=== PATIENT | female | born 1980 | race Caucasian/White ===

== ENCOUNTER 2020-02-16 15:25 | Emergency (ER) | payer OTHER, SELFPAY ==
[2020-02-16 15:27] VITALS: BP 158/100; PULSE 113; RESP 19; TEMP 36.9; O2SAT 95; BMI 45.4
--- NOTE | 2020-02-16 15:40 | ED.DCSUM_ITS ---
- ER Visit Summary Date of Service: 02/16/20 Chief Complaint: [Seizure] History of Present Illness: The patient is a 40 F [presents to the emergency department via EMS after sustaining a seizure this afternoon. [place] and apparently was with her kids when she had a whole body tonic-clonic seizure lasting about 1-1/2 to 2 minutes. Patient somewhat postictal afterwards. Patient does have history of seizure disorder but states that it is been many years since her last seizure. Patient just saw her neurologist 2 weeks ago. Patient is on Vimpat and has been compliant with her medications. There have not been any adjustments in her medications. She denies recent illness. She denies sleep deprivation. Currently just feels fatigued and otherwise has no complaints. Patient did lose control of her bladder during her seizure.] Physical Examination: [HEENT-PERRLA, EOMI. Cranial nerves II through XII grossly intact. TMs clear. Mucous membranes moist. No adenopathy. Patient does have bite wounds to her tongue. Cardiovascular-regular rate and rhythm without murmur or ectopy Lungs-clear to auscultation, chest wall stable without crepitus or subcu emphysema Abdomen-normoactive bowel sounds, soft, nontender, no rebound or rigidity, no peritoneal signs. Neuro drim-hsfjee-fw-nose and heel crespo testing within normal limits, negative Romberg, negative pronator, fundi benign Extremities-intact ?4, normal range of motion, normal pulses, atraumatic] Test Results: [CBC with differential obtained showed a white count of 11.7, hemoglobin 12.6, hematocrit 40, placed 339. Chemistries showed a sodium 139, potassium 3.3, chloride 108, CO2 20, glucose 120, BUN 16 creatinine 1.3. Tees were normal.] Emergency Department Course and Treatment: [IV line established and patient was observed in the department. She had no further seizure activity.] Treatment Plan: [Patient advised to follow-up with her neurologist within next 3 to 5 days.] Disposition: [Discharged home in stable condition] Impression: [Seizure-recurrent] This note was generated with [employer] software. It may contain incorrect words, spelling, and punctuation that were not noted in review of the chart prior to signing
[2020-02-16 15:53] LABS: Absolute Lymphocyte Count 3.46 X10^3/uL (0.83-4.51); Absolute Neutrophil Count 6.8 X10^3/uL (2.0-7.7); Basophil# 0.04 X10^3/uL; Basophil% 0.3 % (0-1); Eosinophil# 0.46 X10^3/uL; Eosinophils% 3.9 % (0-5); Hematocrit 39.7 % (37-47); Hemoglobin 12.6 g/dL (12.0-15.0); Lymphocyte # 3.46 X10^3/ul (4.0); Lymphocyte % 29.5 % (19-41); Mean Corp Hgb Conc 31.7 g/dL (32-36); Mean Corpuscular Hgb 26.7 pg (27.0-32.0); Mean Corpuscular Volume 84.1 fL (81-99); Mean Platelet Vol. 9.4 fl (6.2-12.0); Monocyte# 0.88 X10^3/uL; Monocyte% 7.5 % (0-10); NRBC Flagged by Analyzer 0 % (0-5); Neutrophil # 6.79 X10^3/uL (2.7-7.7); Platelet Count 339 K/mm3 (150-450); RBC Distribution Width SD 45.6 fl (35.1-43.9); Red Blood Count 4.72 M/mm3 (4.2-5.4); White Blood Count 11.7 K/mm3 (4.4-11.0)
[2020-02-16 16:05] LABS: AST(SGOT) 21 U/L (15-37); Alanine Aminotransfer ALT/SGPT 37 U/L (13-56); Albumin, Serum 3.7 g/dL (3.2-5.0); Alkaline Phosphatase 99 U/L (45-117); Anion Gap 11 (5-15); BUN 16 mg/dL (7-18); BUN/Creat Ratio 12.2 RATIO (10-20); Calcium,Total 8.6 mg/dL (8.5-10.1); Chloride 108 mmol/L (98-107); Creatinine, Serum 1.31 mg/dL (0.55-1.02); EST Glomerular Filtration Rate 47 mL/min (>60); Est Glom Filt Rate - Afr Amer 57 mL/min (>60); Estimated Creatinine Clearance 46.28 ml/min; Globulin 3.7 g/dL (2.2-4.2); Glucose 120 mg/dL (74-106); Potassium 3.3 mmol/L (3.5-5.1); Protein, Total 7.4 g/dL (6.4-8.2); Sodium Level 139 mmol/L (136-145)
--- NOTE | 2020-02-16 16:23 | ED.DEP ---
ED Disposition - Plan for ED Patient: Instructions: ED Seizure Recurrent Adult Referrals: Cari Zaldivar PA [Primary Care Provider] - Additional Instructions: see your neurologist
[2020-02-16 16:41] VITALS: BP 136/78; PULSE 110; RESP 16; O2SAT 98
== END 2020-02-16 16:42 | disposition home or self-care (01) ==
LOC: ED 15:56
PROVIDERS: Emergency Provider Emergency Medicine; PCP Physician Assistant
DX: G40.909 Epilepsy, unspecified, not intractable, without status epilepticus (principal); Z79.899 Other long term (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 therapy
CPT/HCPCS: 80053; 85025; 99285; A4216

== ENCOUNTER 2024-11-10 11:19 | Emergency (ER) | payer OTHER, SELFPAY ==
[2024-11-10 11:20] VITALS: BP 199/128; PULSE 95; RESP 16; TEMP 35.8; O2SAT 99
[2024-11-10 11:22] VITALS: BMI 44.0
--- OUTSIDE RECORDS SUMMARY | 2024-11-10 12:02 | XMS RPT_ITS | CCD ---
Author Organization [facility] Care Team Providers Care Robotics Specialist Name Role Phone Shelley Bernabe Unavailable Unavailable PROVIDER, UNKNOWN Unavailable Unavailable No, PCP Unavailable Unavailable Kamla Melchor Unavailable Unavailable Distrio, Shelley Unavailable Unavailable Checo Bernabea Unavailable Unavailable Cari Zaldivar PA-C Primary Care Provider [phone] Cari Zaldivar PA-C Primary Care Provider [phone] Referred, Self Attending Unavailable Cari Zaldivar Primary Care Unavailable Cari Zaldivar PA-C Primary Care Provider [phone] Unavailable Primary Care Provider Unavailabl e Unavailable Primary Care Provider Unavailabl e OTONIEL OCAMPO Attending Unavailable NEDA JEROME Referring Unavail able NEDA JEROME Attending Unavail able NEDA JEROME Referring Unavail able Allergies Allergy Classification Reported Allergen(s) Allergy Type Date of Onset Reaction(s) Facility (20 sources) lamoTRIgine; Translations: [LAMOTRIGINE] Drug Allergy 04-25-2007 [facility] Work Phone: (1 source) lamoTRIgine Drug Allergy 02-16-2020 [facility] Repository Medications Current Medications Medication Drug Class(es) Dates Sig (Normalized) Sig (Original) lacosamide 200 mg oral tablet (20 sources) Anti-epileptic Agent Start: 12-16-2022 End: 03-05-2025 take 1 tablet by mouth twice daily lacosamide (VIMPAT) 200 mg Indications: Partial idiopathic epilepsy with seizures of localized onset, intractable, without status epilepticus (HCC) Take 1 tablet by mouth two times a day for 180 days. 180 tablet 1 09/06/2024 03/05/2025 Active Start: 09-27-2021 End: 03-26-2022 take 1 tablet by mouth twice daily lacosamide (VIMPAT) 50 mg tab Indications: Partial idiopathic epilepsy with seizures of localized onset, intractable, without status epilepticus (HCC) Take 1 tablet by mouth twice daily for 180 days. 180 tablet 1 09/27/2021 03/26/2022 Active Start: 09-10-2021 End: 09-23-2021 take 1 tablet by mouth twice daily lacosamide (VIMPAT) 50 mg tab Indications: Partial idiopathic epilepsy with seizures of localized onset, intractable, without status epilepticus (HCC) Take 1 tablet by mouth twice daily for 180 days. 180 tablet 1 09/23/2021 09/23/2021 Discontinued Start: 07-01-2021 End: 12-28-2021 take 0.5 tablet by mouth twice daily lacosamide (VIMPAT) 100 mg tab Indications: Partial idiopathic epilepsy with seizures of localized onset, intractable, without status epilepticus (HCC) Take 0.5 tablets by mouth twice daily for 180 days. Take in addition to 200mg tabs for total dose of 250mg twice daily. 30 tablet 5 07/01/2021 09/23/2021 Discontinued Start: 02-16-2020 End: 03-27-2022 take 1 tablet by mouth twice daily lacosamide (VIMPAT) 200 mg Indications: Partial idiopathic epilepsy with seizures of localized onset, intractable, without status epilepticus (HCC) Take 1 tablet by mouth twice daily for 150 days. generic trial 60 tablet 5 09/27/2021 09/28/2021 Discontinued Comment on above: Take 1 tablet by eleonora th twice daily for 150 days. Take 0.5 tablets by mouth twice daily for 180 days. Take in addition to 200mg tabs for total dose of 250mg twice daily. Take 1 tablet by eleonora th twice daily for 150 days. generic trial Take 1 tablet by eleonora th twice daily for 180 days. generic trial Take 1 tablet by eleonora th twice daily for 180 days. Take 1 tablet by eleonora th two times a day for 180 days. Completed/Discontinued Medications Medication Drug Class(es) Dates Sig (Normalized) Sig (Original) clonazePAM 0.5 mg disintegrating oral tablet (7 sources) Benzodiazepine Start: 09-06-2021 End: 09-09-2021 take 1 tablet by mouth twice daily clonazePAM orally disintegrating (KLONOPIN WAFER) 0.5 mg disintegrating tablet Indications: Recurrent seizures (HCC) Take 1 tablet by mouth twice daily for 3 days. 6 tablet 0 09/06/2021 Active Comment on above: Take 1 tablet by eleonora twice daily for 3 days. OXcarbazepine 300 mg oral tablet (1 source) Anti-epileptic Agent Start: 12-16-2022 End: 12-16-2022 take 1.5 tablets by mouth twice daily OXcarbazepine (TRILEPTAL) 300 mg tablet Take 1.5 tablets by mouth twice daily. 90 tablet 5 12/16/2022 12/16/2022 Discontinued Comment on above: Take 1.5 tablets by mouth twice daily. zonisamide 100 mg oral capsule (20 sources) Anti-epileptic Agent Start: 08-18-2022 End: 04-30-2025 take 2 capsules by mouth once daily in the morning, then take 3 capsules by mouth once daily at bedtime zonisamide (ZONEGRAN) 100 mg capsule Indications: Partial idiopathic epilepsy with seizures of localized onset, intractable, without status epilepticus (HCC) Take 2 capsules by mouth every morning AND 3 capsules daily at bedtime. 450 capsule 1 05/20/2024 11/01/2024 Discontinued Start: 10-06-2021 End: 10-07-2021 zonisamide (ZONEGRAN) 100 mg capsule Indications: Partial idiopathic epilepsy with seizures of localized onset, intractable, without status epilepticus (HCC) take 2 pills in the morning and 3 pills in the evening. 450 capsule 3 10/07/2021 Active Start: 09-27-2021 End: 01-04-2022 take 1 capsule by mouth twice daily zonisamide (ZONEGRAN) 50 mg capsule Indications: Partial idiopathic epilepsy with seizures of localized onset, intractable, without status epilepticus (HCC) Take 1 capsule by mouth twice daily. Take with 100 mg capsule to make 150 mg twice daily 180 capsule 0 09/27/2021 01/04/2022 Discontinued Start: 09-27-2021 End: 12-26-2021 take 1 capsule by mouth twice daily zonisamide (ZONEGRAN) 100 mg capsule Indications: Partial idiopathic epilepsy with seizures of localized onset, intractable, without status epilepticus (HCC) Take 1 capsule by mouth twice daily. Take with 50 mg capsule to make 150 mg twice daily 180 capsule 0 09/27/2021 10/06/2021 Discontinued Start: 09-23-2021 End: 03-22-2022 take 3 capsules by mouth once daily zonisamide (ZONEGRAN) 100 mg capsule Take 3 capsules by mouth once daily. 270 capsule 1 09/23/2021 09/27/2021 Discontinued Start: 08-03-2021 End: 09-23-2021 take 2 capsules by mouth once daily zonisamide (ZONEGRAN) 100 mg capsule Take 2 capsules by mouth once daily. 180 capsule 3 08/03/2021 09/23/2021 Discontinued Comment on above: Take 2 capsules by m outh once daily. Take 3 capsules by m outh once daily. Take 1 capsule by mo uth twice daily. Take with 50 mg capsule to make 150 mg twice daily Take 1 capsule by mo uth twice daily. Take with 100 mg capsule to make 150 mg twice daily Take 1 capsule by mo uth twice daily. take 2 pills in the morning and 3 pills in morning. take 2 pills in the morning and 3 pills in the evening. Take 2 capsules by m outh every morning AND 3 capsules daily at bedtime. Problems Active Problems Problem Classification Problem Date Documented Date Episodic/Chronic Deficiency and other anemia (20 sources) Iron deficiency anemia due to blood loss; Translations: [Iron deficiency anemia secondary to blood loss (chronic)] Onset: 05-07-2019 05-07-2019 Chronic Epilepsy; convulsions (20 sources) Localization-related idiopathic epilepsy; Translations: [Localization-related (focal) (partial) idiopathic epilepsy and epileptic syndromes with seizures of localized onset, intractable, without status epilepticus] Onset: 08-30-2018 Chronic Nonmalignant breast conditions (2 sources) Breast lump; Translations: [Unspecified lump in the left breast, upper outer quadrant] 02-24-2023 Episodic Other aftercare (1 source) Long-term current use of anticonvulsant; Translations: [Encounter for therapeutic drug level monitoring] 11-01-2024 Episodic Other aftercare (1 source) Encounter for therapeutic drug level monitoring; Translations: [Encounter for monitoring anticonvulsant therapy] Onset: 11-01-2024 Episodic Other aftercare (1 source) 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 medical instrument cable fabricator (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 therapy; Translations: [Encounter for monitoring anticonvulsant therapy] Onset: 11-01-2024 Episodic Other female genital disorders (20 sources) Abnormal uterine bleeding; Translations: [Abnormal uterine and vaginal bleeding, unspecified] Onset: 11-04-2019 11-04-2019 Chronic Other nutritional; endocrine; and metabolic disorders (20 sources) Body mass index 40+ - severely obese; Translations: [Morbid (severe) obesity due to excess calories] Onset: 11-07-2019 11-07-2019 Chronic Residual codes; unclassified (2 sources) At high risk for breast cancer; Translations: [Other specified personal risk factors, not elsewhere classified] 10-07-2024 Episodic Unclassified (13 sources) Encounter for screening mammogram for malignant neoplasm of breast; Translations: [Encounter for screening for lipoid disorders] Onset: 05-01-2017 Episodic Past or Other Problems Problem Classification Problem Date Documented Da te Episodic/Chronic Biliary tract disease (11 sources) Calculus of gallbladder with cholecystitis; Translations: [Calculus of gallbladder with chronic cholecystitis without obstruction] Onset: 10-18-2005 Resolved: 11-04-2019 11-04-2019 Episodic Medical examination/evaluation (2 sources) Encounter for general adult medical examination without abnormal findings; Translations: [Encntr for general adult medical exam w/o abnormal findings] Onset: 05-01-2017 Episodic Other circulatory disease (20 sources) Elevated blood-pressure reading without diagnosis of hypertension; Translations: [Elevated blood-pressure reading, without diagnosis of hypertension] Onset: 11-05-2018 11-05-2018 Episodic Other gastrointestinal disorders (11 sources) Functional diarrhea; Translations: [Functional diarrhea] Onset: 07-25-2008 Resolved: 01-28-2021 01-28-2021 Episodic Unclassified (3 sources) Patient encounter status 08-06-2024 Results Test Name Value Interpretation Reference Range Facility [facility] 09-06-[address] [facility] Telephone (NEUSES) ELMO MONTOYA ([id number]) 1980 [facility] Date Time Provider Department 09/06/24 OTONIEL OCAMPO During your visit today, we recorded the following information about you: Ira Pathak 09/06/2024 10:11 AM Signed General call : Full name of person calling: Elmo Montoya Relationship to patient: self Phone # : [phone] Reason for call: patient called and wants to speak with the office about a seizure medication. Patient did not know the name of the medication. Patient of Radha Pina 09/06/2024 11:36 AM Signed Patient checking status on a call back. [phone] (home) script is wrong per patient Miriam Mattson RN 09/06/2024 11:56 AM Signed Pt will be out of meds over the weekend, needs Lacosamide 200mg sent to [facility] as a 90 day supply, she verified they it in stock. Pt very upset, using profanity and calling staff inappropriate names. TANYA Gonzales Alena, PA-C 09/06/2024 11:59 AM Signed The following approved medication requests have been transmitted electronically. Requested Prescriptions Signed Prescriptions Disp Refills lacosamide (VIMPAT) 200 mg 180 tablet 1 Sig: Take 1 tablet by mouth two times a day for 180 days. Authorizing Provider: EMEKA MENG PA-C Allergies As of Date: 09/06/2024 Noted Allergy Reaction LAMICTAL (LAMOTRIGINE) 04/25/2007 7 - Swelling Date Reviewed: 08/06/2024 Reviewed by: Loretta May MA - Fully Assessed Reason for Visit: Medication concern [Other] Cmt: Seizure medications Visit Diagnosis:Partial idiopathic epilepsy with seizures of localized onset, intractable, without status epilepticus (HCC) [G40.019] Order(s):lacosamide (VIMPAT) 200 mgTake 1 tablet by mouth two times a day for 180 days.Disp: 180 tabletRfl: 1 Prescriptions as of 09/06/2024 - lacosamide (VIMPAT) 200 mg Take 1 tablet by mouth two times a day for 180 days. - zonisamide (ZONEGRAN) 100 mg capsule Take 2 capsules by mouth every morning AND 3 capsules daily at bedtime. Problem List As Of Date 09/06/2024 Noted Resolved Calculus of gallbladder with other cholecystiti*10/18/2005 11/04/2019 CHANGE OF BOWEL HABITS-DIARRHEA [K59.1] 07/25/2008 01/28/2021 Partial idiopathic epilepsy with seizures of lo*08/30/2018 Elevated blood pressure reading without diagnos*11/05/2018 Iron deficiency anemia due to chronic blood los*05/07/2019 Abnormal uterine bleeding (AUB) [N93.9] 11/04/2019 Obesity, Class III, BMI >= 40 [E66.01] 11/07/2019 Prescriptions ordered this encounter Disp Refills Start End LACOSAMIDE 200 MG TABLET 180 * 1 09/06/2024 03/05/2025 Route: ORAL Sig: Take 1 tablet by mouth two times a day for 180 days. Medications Discontinued During This Encounter Prescriptions - lacosamide (VIMPAT) 200 mg (Discontinued) Take 1 tablet by mouth two times a day for 180 days. Encounter Status:Closed by MIRIAM MATTSON on 09/06/24 [facility] CNOVarmin 08-06-2024 CNOV Office Visit (OBGYWM ) ELMO MONTOYA ([id number]) 1980 [facility] Date Time Provider Department 08/06/24 8:20 AM NEDA JEROME OBGYWM During your visit today, we recorded the following information about you: Blood pressure Height 158/98 1.6 m Neda Jerome MD 08/06/2024 8:41 AM Signed Glass Selector offered: Patient declines. Elmo is a 44 year old who presents for an annual gynecologic exam without complaints. Working at [employer]. 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: Sexual Activity: Yes; Male; vasectomy Contraception: Surgical PAST MEDICAL HISTORY Diagnosis Date Calculus of gallbladder with other cholecystitis, without mention of obstruction 10/18/2005 Localization-related (focal) (partial) epilepsy and epileptic syndromes with simple partial seizures, without mention of intractable epilepsy Workup for epileptic cause neg Temporomandibular joint disorders, unspecified PAST SURGICAL HISTORY Procedure Laterality Date COLONOSCOPY W/BIOPSY SINGLE/MULTIPLE 08-28-08 HYSTEROSCOPY 03/28/2019 HYSTEROSCOPY, WITH POLYPECTOMY LAPAROSCOPY W TOTAL HYSTERECTOMY UTERUS 250 GM/< 11/2019 TLH, b/l salpingectomy LAPS SURG CHOLECYSTECTOMY W/CHOLANGIOGRAPHY 10/06/05 OPTX NASOMAX CPLX FX LEFT II TYPE W/WIRG AND FXJ 1995 FAMILY HISTORY Problem Relation Age of Onset other (PE) Father DVT Father Breast Cancer Maternal Grandmother Coronary Artery Disease Maternal Grandfather Hypertension Maternal Grandfather Lipids Maternal Grandfather Coronary Artery Disease Paternal Grandfather 82 [place] SOCIAL HISTORY Social History Tobacco Use Smoking status: Never Smokeless tobacco: Never Vaping Use Vaping status: Never Used Substance Use Topics Alcohol use: No Drug use: No REVIEW OF SYSTEMS Abdomen: No abdominal pain, nausea, vomiting, diarrhea, or constipation. No bloating, early satiety, indigestion, or increased flatulence. Bladder: No dysuria, gross hematuria, urinary frequency, urinary urgency, or incontinence. Breast: No breast lumps, nipple d/c, overlying skin changes, redness or skin retraction. Allergies and current medication updated:Yes SENSITIVE EXAM: The sensitive examination was discussed with the Patient or Patient's Authorized Inter Com Installer. As applicable, any other physician, advance practice provider, medical student, or other health professional student that will be observing or involved in the sensitive examination for educational or training purposes was discussed with the Patient or Authorized Inter Com Installer. The Patient or Authorized Inter Com Installer has agreed to proceed with the sensitive examination. (Sensitive examination includes inspection and/or palpation of the breasts, pelvis, prostate and anorectal regions). EXAM: BP 158/98 Ht 5' 3 (1.60m) LMP 09/13/2019 GENERAL: pleasant, female in no apparent distress HEENT: Normocephalic, atraumatic, mucus membranes moist, and no lesions NECK: Supple, full range of motion, no adenopathy, and thyroid normal DERMATOLOGY: Normal, without lesions, non-icteric, and non-hirsute BREAST: soft, non-tender, symmetric, no dominant mass, normal nipple-areolar complex, no lymphadenopathy, and no nipple discharge CHEST: Normal inspiratory effort ABDOMEN: soft, non-tender, and no masses PELVIC: external genitalia normal, normal Bartholin's glands, urethra, [place]'s glands, no vulvar lesions, good vaginal support, physiologic discharge present, normal appearing perineal body and perianal region, cervix surgically absent BIMANUAL: no adnexal masses, non-tender, and uterus surgically absent RECTOVAGINAL: deferred. NEURO: alert and oriented x3,exam grossly non-focal EXTREMITIES: normal ASSESSMENT/PLAN: 1) Health maintenance: Mammogram up to date . Nutrition, exercise and routine health maintenance exams reviewed. Calcium/Vitamin D supplementation information provided. Colon cancer screening: colonoscopy ordered 2) Contraception: hysterectomy. Contraceptive options reviewed and information provided. 3) STD screening: Declined STD check. 4) Follow up one year or sooner as needed MD Crow Odell Deidre, MD 08/06/2024 8:18 AM Signed COLONOSCOPY BOWEL PREPARATION INSTRUCTIONS MiraLAX? Your doctor has scheduled you for a colonoscopy. To have a successful colonoscopy, you must have a clean colon, that is empty. A clean colon allows your doctor to see the entire (more content not included)... Normal [facility] DBT Breast - bilateral scree maria elena 08-06-2024 IMPRESSION: There is no mammographic evidence of malignancy in either breast. Routine screening mammogram is recommended. Annual mammogram will be due in 1 year. BI-RADS Category 1: Negative RISK: Based on the Tyrer-Cuzick (TC) risk assessment model, this patient has a 20.8% lifetime risk of developing breast cancer, meaning they are at high risk for developing breast cancer. However, this is only an estimate based on available history provided on the patient's questionnaire. Because patients with a lifetime risk of 20% or greater may benefit from additional supplemental screening, we encourage a full breast clinical evaluation and comprehensive breast cancer risk assessment to guide further decision making. For more information regarding the management of high-risk patients, the following is a link to the [facility] care path https://ccf.OKWave. [employer]/dotNet/documents/?d ivrv=40628. Additionally, a referral to the [facility] is also appropriate. Interpreting Radiologist: Nidia Tripathi M.D. Electronically signed on: 08/06/2024 Division Engineer: MARII Transcribe Date/Time: Aug 06 2024 7:25A Dictated by: NIDIA TRIPATHI MD This examination was interpreted and the report reviewed and electronically signed by: NIDIA TRIPATHI MD on Aug 06 2024 2:16PM [facility] DIVISION OF RADIOLOGY * * *Final Report* * * DATE OF EXAM: Aug 06 2024 7:38AM [facility] [id number] - JERMAINE SCREENING W STEFANIE / PROCEDURE REASON: Encounter for screening mammogram for breast cancer * * * * Physician Interpretation * * * * RESULT: [place] [address] #[id number] - [facility] SCREENING W STEFANIE HISTORY: 44 year-old patient seen for screening and is asymptomatic in both breasts. Patient states no personal history of breast cancer. The patient has the following family history of breast cancer: mother, breast cancer. COMPARISON STUDIES: The present examination has been compared to prior imaging studies dated 10/05/2020 (mammogram), 03/17/2022 (mammogram) and 03/22/2023 (mammogram). MAMMOGRAM TECHNIQUE: The study was acquired using full field digital technology and interpreted from soft copy. Digital Breast Tomosynthesis (DBT) images were obtained and used to assist in the interpretation of this examination. MAMMOGRAM FINDINGS: The breasts are heterogeneously dense, which may obscure small masses. No suspicious masses, calcifications or other abnormalities are seen in either breast. There are no significant interval changes. DIVISION OF RADIOLOGY Provider, [facility] - 08/06/2024 * * *Final Report* * * DATE OF EXAM: Aug 06 2024 7:38AM [facility] [id number] - JERMAINE SCREENING W STEFANIE / PROCEDURE REASON: Encounter for screening mammogram for breast cancer * * * * Physician Interpretation * * * * RESULT: [facility] [address] [place] [address] #[id number] - JERMAINE SCREENING W STEFANIE HISTORY: 44 year-old patient seen for screening and is asymptomatic in both breasts. Patient states no personal history of breast cancer. The patient has the following family history of breast cancer: mother, breast cancer. COMPARISON STUDIES: The present examination has been compared to prior imaging studies dated 10/05/2020 (mammogram), 03/17/2022 (mammogram) and 03/22/2023 (mammogram). MAMMOGRAM TECHNIQUE: The study was acquired using full field digital technology and interpreted from soft copy. Digital Breast Tomosynthesis (DBT) images were obtained and used to assist in the interpretation of this examination. MAMMOGRAM FINDINGS: The breasts are heterogeneously dense, which may obscure small masses. No suspicious masses, calcifications or other abnormalities are seen in either breast. There are no significant interval changes. IMPRESSION IMPRESSION: There is no mammographic evidence of malignancy in either breast. Routine screening mammogram is recommended. Annual mammogram will be due in 1 year. BI-RADS Category 1: Negative RISK: Based on the Tyrer-Cuzick (TC) risk assessment model, this patient has a 20.8% lifetime risk of developing breast cancer, meaning they are at high risk for developing breast cancer. However, this is only an estimate based on available history provided on the patient's questionnaire. Because patients with a lifetime risk of 20% or greater may benefit from additional supplemental screening, we encourage a full breast clinical evaluation and comprehensive breast cancer risk assessment to guide further decision making. For more information regarding the management of high-risk patients, the following is a link to the [facility] care path https://ccf.OKWave. [employer]/dotNet/documents/?d carf=44753. Additionally, a referral to the [facility] is also appropriate. Interpreting Radiologist: Nidia Tripathi M.D. Electronically signed on: 08/06/2024 Division Engineer: MARII Transcribe Date/Time: Aug 06 2024 7:25A Dictated by: NIDIA TRIPATHI MD This examination was interpreted and the report reviewed and electronically signed by: NIDIA TRIPATHI MD on Aug 06 2024 2:16PM EST [facility] Radiology Study observation (narrative) [facility] DBT Breast - bilateral scree ningOrdered By: [facility] Provider on 08-06-2024 [facility] JERMAINE SCREENING W TOMOon 08-06 JERMAINE SCREENING W STEFANIE * * *Final Report* * * DATE OF EXAM: Aug 06 2024 7:38AM [facility] [id number] - JERMAINE SCREENING W STEFANIE / PROCEDURE REASON: Encounter for screening mammogram for breast cancer * * * * Physician Interpretation * * * * RESULT: [place] [address] [place] [address] #[id number] - JERMAINE SCREENING W STEFANIE HISTORY: 44 year-old patient seen for screening and is asymptomatic in both breasts. Patient states no personal history of breast cancer. The patient has the following family history of breast cancer: mother, breast cancer. COMPARISON STUDIES: The present examination has been compared to prior imaging studies dated 10/05/2020 (mammogram), 03/17/2022 (mammogram) and 03/22/2023 (mammogram). MAMMOGRAM TECHNIQUE: The study was acquired using full field digital technology and interpreted from soft copy. Digital Breast Tomosynthesis (DBT) images were obtained and used to assist in the interpretation of this examination. MAMMOGRAM FINDINGS: The breasts are heterogeneously dense, which may obscure small masses. No suspicious masses, calcifications or other abnormalities are seen in either breast. There are no significant interval changes. IMPRESSION: There is no mammographic evidence of malignancy in either breast. Routine screening mammogram is recommended. Annual mammogram will be due in 1 year. BI-RADS Category 1: Negative RISK: Based on the Tyrer-Cuzick (TC) risk assessment model, this patient has a 20.8% lifetime risk of developing breast cancer, meaning they are at high risk for developing breast cancer. However, this is only an estimate based on available history provided on the patient's questionnaire. Because patients with a lifetime risk of 20% or greater may benefit from additional supplemental screening, we encourage a full breast clinical evaluation and comprehensive breast cancer risk assessment to guide further decision making. For more information regarding the management of high-risk patients, the following is a link to the [facility] care path https://ccf.OKWave. [employer]/dotNet/documents/?d ehbf=13945. Additionally, a referral to the [facility] is also appropriate. Interpreting Radiologist: Nidia Tripathi M.D. Electronically signed on: 08/06/2024 Division Engineer: MARII Transcribe Date/Time: Aug 06 2024 7:25A Dictated by: NIDIA TRIPATHI MD This examination was interpreted and the report reviewed and electronically signed by: NIDIA TRIPATHI MD on Aug 06 2024 2:16PM EST [id number] Normal [facility] CNPN Telephone (NEEPFV) ELMO MONTOYA ([id number]) 1980 [facility] Date Time Provider Department 11/02/23 OTONIEL OCAMPO NEEPFV During your visit today, we recorded the following information about you: Rowena Munoz 11/02/2023 12:14 PM Signed Received [facility] prior authorization request medication, in [facility] for review. Fatuma Lewis, TANYA 11/03/2023 9:48 AM Addendum No PA necessary per [facility] Per local [facility] Co-pay: $118.86 for Qty: Spoke w/Linda [facility] - No TE available under plan Patient elects to use [facility] discount card Spoke w/Tomi [facility] and advise of patient plan Fatuma Lewis RN Allergies As of Date: 11/02/2023 Noted Allergy Reaction LAMICTAL (LAMOTRIGINE) 04/25/2007 7 - Swelling Date Reviewed: 08/02/2023 Reviewed by: Loretta May MA - Fully Assessed Reason for Visit: Medication Authorization [[id number]] Prescriptions as of 11/03/2023 - lacosamide (VIMPAT) 200 mg Take 1 tablet by mouth two times a day for 180 days. - zonisamide (ZONEGRAN) 100 mg capsule Take 2 capsules by mouth every morning AND 3 capsules daily at bedtime. Problem List As Of Date 11/02/2023 Noted Resolved Calculus of gallbladder with other cholecystiti*10/18/2005 11/04/2019 CHANGE OF BOWEL HABITS-DIARRHEA [K59.1] 07/25/2008 01/28/2021 Partial idiopathic epilepsy with seizures of lo*08/30/2018 Elevated blood pressure reading without diagnos*11/05/2018 Iron deficiency anemia due to chronic blood los*05/07/2019 Abnormal uterine bleeding (AUB) [N93.9] 11/04/2019 Obesity, Class III, BMI >= 40 [E66.01] 11/07/2019 Encounter Status:Closed by FATUMA LEWIS on 11/03/23 Normal [facility] US Breast - left limitedon 0 08-15-2023 [facility] US BREAST LTD LEFTon 023 [facility] JERMAINE SCREENINGon 03-17-2022 [facility] CBC panel Auto (Bld)on 09-01 Erythrocyte distribution width (RBC) [Ratio] 12.7 % 11.5 - 15.0 % [facility] Hematocrit (Bld) [Volume fraction] 41.4 % 36.0 - 46.0 % [facility] Hemoglobin (Bld) [Mass/Vol] 14.1 g/dL 11.5 - 15.5 g/dL [facility] MCH (RBC) [Entitic mass] 29.6 pg 26.0 - 34.0 pg [facility] MCHC (RBC) [Mass/Vol] 34.1 g/dL 30.5 - 36.0 g/dL [facility] MCV (RBC) [Entitic vol] 86.8 fL 80.0 - 100.0 fL [facility] Nucleated RBC (Bld) [#/Vol] 10*3/uL <0.01 k/uL [facility] Platelet mean volume (Bld) [Entitic vol] 8.8 fL Low 9.0 - 12.7 fL [facility] Platelets (Bld) [#/Vol] 310 10*3/uL 150 - 400 k/uL [facility] RBC (Bld) [#/Vol] 4.77 10*6/uL 3.90 - 5.2 0 m/uL [facility] WBC (Bld) [#/Vol] 7.13 10*3/uL 3.70 - 11. 00 k/uL [facility] Comprehensive metabolic 2000 panelon 09-01-2021 Albumin [Mass/Vol] 4.4 g/dL 3.9 - 4.9 g/dL [facility] ALP [Catalytic activity/Vol] 84 U/L 34 - 123 U/L [facility] ALT [Catalytic activity/Vol] 13 U/L 7 - 38 U/L [facility] Anion gap [Moles/Vol] 7 mmol/L Low 9 - 18 mmol/L [facility] AST [Catalytic activity/Vol] 13 U/L 13 - 35 U/L [facility] Bilirubin [Mass/Vol] mg/dL Low 0.2 - 1 .3 mg/dL [facility] Calcium [Mass/Vol] 8.9 mg/dL 8.5 - 10. 2 mg/dL [facility] Chloride [Moles/Vol] 105 mmol/L 97 - 10 5 mmol/L [facility] CO2 [Moles/Vol] 27 mmol/L 22 - 30 mmol/L [facility] Creatinine [Mass/Vol] 0.73 mg/dL 0.58 - 0.96 mg/dL [facility] Estimated Glomerular Filtration Rate 105 mL/min/1.73m >=60 mL/min/1.73m [facility] Glucose [Mass/Vol] 102 mg/dL High 74 - 99 mg/dL [facility] Potassium [Moles/Vol] 4.4 mmol/L 3.7 - 5.1 mmol/L [facility] Protein [Mass/Vol] 6.6 g/dL 6.3 - 8.0 g/dL [facility] Sodium [Moles/Vol] 139 mmol/L 136 - 144 mmol/L [facility] Urea nitrogen [Mass/Vol] 14 mg/dL 7 - 21 mg/dL [facility] ANES Zane 11-07-2019 ANES POST HNO ID: [id number] Author: Ivan Campbell Service: Anesthesiology Author Type: Anesthesiologist Type: Anesthesia PostOp Filed: 11/07/2019 12:50 PM Note Text: POST ANESTHESIA EVALUATION NOTE SERVICE DATE: 11/07/2019 SERVICE TIME: 12:50 PM : 1980 Vitals: 11/07/19 0651 11/07/19 0939 11/07/19 1030 Temp: 36.2 ?C (97.2 ?F) 36.5 ?C (97.7 ?F) 36.9 ?C (98.4 ?F) 11/07/19 1015 11/07/19 1030 11/07/19 1045 11/07/19 1200 BP: 148/86 138/84 127/76 120/75 11/07/19 1015 11/07/19 1030 11/07/19 1045 11/07/19 1200 Pulse: 82 85 86 80 11/07/19 1015 11/07/19 1030 11/07/19 1045 11/07/19 1200 Resp: 16 16 16 16 11/07/19 1015 11/07/19 1030 11/07/19 1045 11/07/19 1200 SpO2: 98% 100% 100% 100% Validated Vital Signs: Yes POST ANES STATUS: No apparent anesthetic complications. The patient is appropriately hydrated with stable respiratory and cardiovascular status. Patient has safe and adequate airway control. The patient has appropriate pain relief and no significant post operative nausea or vomiting. The patient has achieved baseline mental status. Intra-Operative Events: No Significant Anesthesia Events Further assessment by Anesthesia Service: None Other Remarks: SIGNATURE: Ivan Campbell MD PATIENT NAME: Elmo Montoya DATE: November 07, 2019 TIME: 12:50 PM PAGER/CONTACT #: [phone] [facility] ANES PREOPon 11-07-2019 ANES PREOP HNO ID: [id number] Author: Ivan Campbell Service: Anesthesiology Author Type: Anesthesiologist Type: Anesthesia PreOp Filed: 11/07/2019 7:09 AM Note Text: ANESTHESIOLOGY DAY OF SURGERY NOTE SERVICE DATE: 11/07/2019 SERVICE TIME: 7:07 AM : 1980 Procedure(s) (LRB): LAPAROSCOPIC HYSTERECTOMY TOTAL FOR UTERUS 250 G OR LESS W/REMOVAL TUBE(S) AND/OR OVARY(S) (Bilateral) CYSTOSCOPY (N/A) Surgeon(s): Neda Mina Estimated body mass index is 43.4 kg/m? as calculated from the following: Height as of this encounter: 160 cm (5' 3). Weight as of this encounter: 111.1 kg (245 lb). Most recent hematocrit and potassium results: Hematocrit 38.2 11/04/2019 Potassium 4.0 08/31/2018 ANES DOS/PREOP NOTE: Vitals: 11/07/19 0651 BP: 183/117 Pulse: 96 Resp: 18 Temp: 36.2 ?C (97.2 ?F) TempSrc: Temporal Artery SpO2: 97% Weight: 111.1 kg (245 lb) Height: 160 cm (5' 3) ACTIVE PROBLEM LIST CHANGE OF BOWEL HABITS-DIARRHEA Partial Idiopathic Epilepsy With Seizures of Localized Onset, Intractable, Without Status Epilepticus (Hcc) Elevated Blood Pressure Reading Without Diagnosis of Hypertension Iron Deficiency Anemia Due to Chronic Blood Loss Abnormal Uterine Bleeding (Aub) PAST MEDICAL HISTORY Diagnosis Date - Calculus of gallbladder with other cholecystitis, without mention of obstruction 10/18/2005 - Localization-related (focal) (partial) epilepsy and epileptic syndromes with simple partial seizures, without mention of intractable epilepsy Workup for epileptic cause neg - Temporomandibular joint disorders, unspecified PAST SURGICAL HISTORY Procedure Laterality Date - COLONOSCOPY W/BX 08-28-08 - HYSTEROSCOPY 03/28/2019 HYSTEROSCOPY, WITH POLYPECTOMY - LAP CHOLECYSTECT/CHOLANGIOG TYSHAWN 10/06/05 - OPEN RX NOSE/JAW FRACT+WIRES 1996 FAMILY HISTORY Problem Relation Age of Onset - Breast Cancer Maternal Grandmother - Coronary Artery Disease Maternal Grandfather - Hypertension Maternal Grandfather - Lipids Maternal Grandfather - Coronary Artery Disease Paternal Grandfather 82 [place] Social History: Social History Tobacco Use - Smoking status: Never Smoker - Smokeless tobacco: Never Used Substance Use Topics - Alcohol use: No - Drug use: No No current facility-administered medications on file prior to encounter. Current Outpatient Medications on File Prior to Encounter Medication Sig - oxyCODONE-acetaminophen (PERCOCET) 5-325 mg tablet Take 1 tablet by mouth every 8 hours as needed. - lacosamide (VIMPAT) 200 mg tab Take 1 tablet by mouth twice daily for 180 days. Current Facility-Administered Medications Medication Dose Route Frequency Provider Last Rate Last Dose - lidocaine 10 mg/mL (1 %) 1-2 mg injection (XYLOCAINE) 0.1-0.2 mL INTRADERMAL PRN Neda Neyhart Ha - lactated ringers infusion 5-30 mL/hr INTRAVENOUS CONTINUOUS Neda Neyhart Ha - ceFAZolin iv piggyback 2 g in D5W (iso-osmotic) 100 mL (ANCEF) 2 g INTRAVENOUS Pre-Op Once Neda Neyhart aH - phenazopyridine 200 mg tab(s) (PYRIDIUM, GERIDIUM) 200 mg ORAL Pre-Op Once Neda Neyhart Ha - acetaminophen 1,000 mg tab(s) (TYLENOL) 1,000 mg ORAL Pre-Op Once Neda Neyhart Ha - celecoxib 200 mg cap(s) (CeleBREX) 200 mg ORAL Pre-Op Once Neda Neyhart Ha - scopolamine 1 mg over 3 days 1 Patch (TRANSDERM-SCOP) 1 Patch TRANSDERMAL Pre-Op Once Neda Neyhart Ha And - scopolamine - REMOVE PATCH OTHER q 72 HR Neda Neyhart Ha And - scopolamine - VERIFY patch OTHER q 8 H Neda Neyhart Ha - gabapentin 300 mg cap(s) (NEURONTIN) 300 mg ORAL Pre-Op Once Neda Neyhart Ha - promethazine 12.5 mg tab(s) (PHENERGAN) 12.5 mg ORAL Pre-Op Once Angus Devarajan - scopolamine 1 mg over 3 days 1 Patch (TRANSDERM-SCOP) 1 Patch TRANSDERMAL ONCE Angus Devarajan Allergies: ALLERGIES Allergen Reactions - Lamictal [Lamotrigi* Swelling DOS EXAM: Adequate NPO status: Yes Anesthetic risks, benefits, alternatives, personnel and consent discussed: Yes Patient agrees to proceed: Yes Previous Anesthesia: No history of adverse event. Airway Assessment: MP 3; Neck ROM: Full ROM without neurologic symptoms; Airway Evaluation: No significant abnormalities Symptoms of Sleep Apnea: Snoring and BMI > 35 Dentition: Teeth intact, perm bridge lower left molars Additional Physical Exam: Lungs: Patient health status unchanged since recent history and physical. See history and physical for exam findings. Cardiac: Patient health status unchanged since recent history and physical. See history and physical for exam findings. Additional Pertinent Findings: N/A Blood Products: Not anticipated for this procedure. Anesthetic Plan: General, Standard ASA Monitors Pain Management Plan: Parenteral or Oral ASA Class: 3 Other Medical Problems: None Chronic Beta Marybel medication administered within 24 hours: N/A I have interviewed and examined the patient. I have reviewed the medical record and/or the pre-anesthesia evaluation, pertinent labs, and test results. Significant changes in the patient's condition since the History and Physical, not otherwise documented in primary service progress notes: No This contains updated information obtained within 48 hours of Surgery/Procedure. SIGNATURE: Ivan Campbell MD PATIENT NAME: Elmo Montoya DATE: November 07, 2019 TIME: 7:07 AM CSN: [id number] Normal [facility] CBCon 11-07-2019 Absolute nRBC <0.01 Normal <0.01 [facility] Comment on above: Performed By: #### C BC ####[place] [address] Erythrocyte distribution width (RBC) [Ratio] 13.2 % Normal 11.5-15.0 [facility] Comment on above: Performed By: #### C BC ####[place] [address] Hematocrit (Bld) [Volume fraction] 36.6 % Normal 36.0-46.0 [facility] Comment on above: Performed By: #### C BC ####[place] [address] Hemoglobin (Bld) [Mass/Vol] 11.2 g/dL Low 11.5-15.5 [facility] Comment on above: Performed By: #### C BC ####[place] [address] MCH (RBC) [Entitic mass] 26.7 pG Normal 26.0-34.0 [facility] Comment on above: Performed By: #### C BC ####[facility] [address] [place] [address] MCHC (RBC) [Mass/Vol] 30.6 g/dL Normal 30.5-36.0 [facility] Comment on above: Performed By: #### C BC ####[facility] [address] [place] [address] MCV (RBC) [Entitic vol] 87.4 fL Normal 80.0-100.0 [facility] Comment on above: Performed By: #### C BC ####[facility] [address] [place] [address] Platelet mean volume (Bld) [Entitic vol] 9.7 fL Normal 9.0-12.7 [facility] Comment on above: Performed By: #### C BC ####[facility] [address] [place] [address] Platelets (Bld) [#/Vol] 333 10*3/uL Normal 150-400 [facility] Comment on above: Performed By: #### C BC ####[place] [address] RBC (Bld) [#/Vol] 4.19 10*6/uL Normal 3.90-5.20 [facility] Comment on above: Performed By: #### C BC ####[facility] [address] [place] [address] WBC (Bld) [#/Vol] 12.24 10*3/uL High 3.70-11.[address] [facility] Comment on above: Performed By: #### C BC ####[facility] [address] [place] [address] Absolute nRBC <0.01 Normal <0.01 [facility] Comment on above: Performed By: #### C BC, PT, K1 ####[facility] [address] [place] [address] Erythrocyte distribution width (RBC) [Ratio] 13.2 % Normal 11.5-15.0 [facility] Comment on above: Performed By: #### C BC, PT, K1 ####[facility] [address] [place] [address] Hematocrit (Bld) [Volume fraction] 37.4 % Normal 36.0-46.0 [facility] Comment on above: Performed By: #### C BC, PT, K1 ####[facility] [address] [place] [address] Hemoglobin (Bld) [Mass/Vol] 11.7 g/dL Normal 11.5-15.5 [facility] Comment on above: Performed By: #### Adelfo BC, PT, K1 ####[facility] [address] [place] [address] MCH (RBC) [Entitic mass] 27.0 pG Normal 26.0-34.0 [facility] Comment on above: Performed By: #### Adelfo BC, PT, K1 ####[facility] [address] [place] [address] MCHC (RBC) [Mass/Vol] 31.3 g/dL Normal 30.5-36.0 [facility] Comment on above: Performed By: #### Adelfo BC, PT, K1 ####[facility] [address] [place] [address] MCV (RBC) [Entitic vol] 86.4 fL Normal 80.0-100.0 [facility] Comment on above: Performed By: #### Adelfo BLANTON, PT, K1 ####[facility] [address] [place] [address] Platelet mean volume (Bld) [Entitic vol] 8.7 fL Low 9.0-12.7 [facility] Comment on above: Performed By: #### Adelfo BC, PT, K1 ####[facility] [address] [place] [address] Platelets (Bld) [#/Vol] 313 10*3/uL Normal 150-400 [facility] Comment on above: Performed By: #### Adelfo BC, PT, K1 ####[facility] [address] [place] [address] RBC (Bld) [#/Vol] 4.33 10*6/uL Normal 3.90-5.20 [facility] Comment on above: Performed By: #### Adelfo BC, PT, K1 ####[facility] [address] [place] [id number] WBC (Bld) [#/Vol] 5.65 10*3/uL Normal 3.70-11.00 [facility] Comment on above: Performed By: #### C BC, PT, K1 ####[facility] [address]21[address] NURSING PROGon 11-07-2019 NURSING PROG HNO ID: [id number] Author: Nel (Rn) TANYA Fontanez Service: Nursing Author Type: Registered Nurse Type: Nursing Progress Note Filed: 11/07/2019 2:11 PM Note Text: Pt awake feeling good taking fluids Dr. Ha called made aware of pt condition said she could go home family called. [facility] NURSING PROG HNO ID: [id number] Author: Anitra (Rn) TANYA Roblero Service: ? Author Type: Registered Nurse Type: Nursing Progress Note Filed: 11/07/2019 10:53 AM Note Text: @ 0939 Pt received to PACU, via cart, from OR. Pt sedated - easily aroused AND quickly returns to sleep when not stimulated. Denies any significant discomfort. Lap sites X3 noted with skin glue closure. Rosario-pad intact. SCD hose on. Side rails up. @ 1015 Sleeping on AND off. @ 1045 Rosario-pad changed for scant amount of bloody drainage. VS stable - physical assess same. [facility] OPERATIVE NOon 11-07-2019 OPERATIVE NO HNO ID: [id number] Author: Neda Ha Service: Gynecology Author Type: Physician Type: Operative Report Filed: 11/18/2019 9:25 AM Note Text: [employer] ASSISTANT OPERATIVE/PROCEDURE REPORT LOG ID: [id number] Surgery/Procedure Date: 11/07/2019 Incision/Procedure Start Time: 8:05 AM Incision Close/Procedure End Time: 9:25 AM Surgeon(s)/Proceduralis t(s) and Occupational Therapy Teacher(s): Surgeon(s) and Role: * Neda Ha - Primary * Carie Mina - Assisting Informed Consent: Informed Consent obtained and on the chart Procedure: Laparoscopic Assisted Vaginal Hysterectomy, bilateral salpingectomy, cystoscopy Pre-Op/Pre-Procedure Diagnosis: AUB, chronic anemia Post-Op/Post-Procedure Diagnosis: Same as pre-op diagnosis and Fibroid Uterus Antibiotic: Pre-op antibiotics as ordered Procedure Details: Patient was taken to the operating room where the sign-in and time out were completed. General anesthesia was induced and found to be adequate. She was placed in a dorsal lithotomy position. Exam under anesthesia was performed. The abdomen, perineum and vagina were prepped and draped in the usual sterile fashion. SCDs were placed and turned on for DVT prophylaxis. A Mckay catheter was placed in the urinary bladder under sterile conditions An open-sided speculum was placed in the patient's vagina with clear visualization of the cervix. The anterior lip of the cervix was grasped with a single tooth tenaculum.. Attention was turned to the abdomen with clean sterile gloves. Prior to making the incision the area was injected with 0.25% Marcaine 2 cc. , A 5 mm intraumbilical incision was made with the knife. and An optical visualization trochar was placed into the peritoneal cavity while the anterior abdominal wall was elevated. The abdomen was insufflated with CO2 gas. Local anesthetic was infiltrated. and A small incision was made in the Bilateral lower abdominal wall. Through these sites a 5 mm trochar and sleeve were inserted under direct visualization. The pelvic contents were visualized and found to be as below. The round ligaments were grasped, cauterized and divided first on the patient right and then on the patient's left using the LigaSure device. The ureters were well clear of the operative site. The right fallopian tube and utero-ovarian ligament were grasped, cauterized and divided using the LigaSure device. The left fallopian tube and utero-ovarian ligament were grasped, cauterized and divided using the LigaSure device. Dissection then proceeded down the broad ligaments bilaterally taking alternate bites with the LigaSure device. The bladder flap was then created using LigaSure device. All areas were inspected for hemostasis which was excellent. Attention was then turned to the vaginal approach. The Humi manipulator was removed from the uterus and the cervix was grasped with tenaculum- cervix injected with 1% lidocaine with epineprhrine. The vaginal mucosa was the dissected off the cervix circumferentially. and The dissection proceeded posteriorly entering the posterior cul-de-sac sharply and a long weighted speculum was placed. The uterosacral ligaments were then grasped with curved Henne clamp. First on the patient's right and then on the patient's left. The ligaments were clamped, cut and sutured using 0-Vicryl suture. Dissection then proceeded anteriorly, opening the anterior cul-de-sac sharply. The uterosacral ligaments were then each identified, clamped, transected and suture ligated with 0 Vicryl on each side. These were tagged. Dissection then proceeded anteriorly, gently dissecting the anterior vaginal mucosa until the peritoneum was identified. The peritoneum was then incised and a retractor was placed into the anterior cul de sac. Taking alternate bites, the cardinal ligaments were serially identified, clamped, transected, suture ligated with 0 Vicryl. With each bite, the uterus serially descended. The uterus was removed through the vagina. Examination of all the pedicles revealed good hemostasis. All specimens were sent to pathology. A rectal exam was performed and was negative. Findings: Uterus: Multiple fibroids Right Ovary: Normal and physiological cyst Left Ovary: Normal Endometrium: did not evaulate Endometrial cavity: did not evaulate Fibroids: Fibroid present: multiple Polyps: Not evaluated The vaginal cuff ,including the posterior peritoneum, was closed with figure-8 0-vicryl sutures vertically. The pneumo-peritoneum was re-insuflated and the pelvic contents inspected. The specimens were sent to pathology. Hemostasis was excellent and all instruments were removed from the abdomen and the pneumo-peritoneum released. The skin incisions were closed with 4-0 monocryl. and Cystoscopy was performed and strong bilateral jets were noted from the ureters. Sign-out was completed. IV Fluids: 1200cc Urine Output: 100 mL Estimated Blood Loss: 50ml Specimens: Left fallopian tube, Right fallopian tube and Fibroid uterus Implantable Devices: None Drains: None Complications: None A digital sweep of the vaginal canal was performed by Neda José MD and it was ascertained that no instruments or other foreign bodies are retained within the cavity. Sponge, lap, and needle counts were correct times two and the patient was taken to the recovery room with stable vital signs after tolerating the procedure well. No qualified resident/fellow was available. Assistance by Dr. Carie Mina to manipulate uterus and retract during the procedure. SIGNATURE: Neda José MD PATIENT NAME: Elmo Montoya DATE: November 07, 2019 TIME: 9:32 AM PAGER/CONTACT #: [facility] PT EDon 11-07-2019 PT ED HNO ID: [id number] Author: Natalie (Rn) TANYA Martinez Service: ? Author Type: Registered Nurse Type: Patient Education Filed: 11/07/2019 6:51 AM Note Text: PRE OP LEARNING ASSESSMENT PROCEDURE/SURGERY: SURGERY: Cystoscopy, laparoscopic total hysterectomy, salpingectomy READINESS TO LEARN COGNITIVE ABILITY: Alert and oriented MOTIVATION TO LEARN: Interested FAMILY SUPPORT: High - Very involved in pt care PATIENT LEARNS BEST BY: Verbal Instruction FACTORS AFFECTING LEARNING: None PHYSICAL LIMITATIONS AFFECTING LEARNING: Pain Electronically Signed By: Natalie Martinez RN In Department: [facility] SURGERY Normal [facility] Potassiumon 11-07-2019 Potassium [Moles/Vol] 4.7 mmol/L Normal 3.7-5.1 [facility] Comment on above: Performed By: #### C BC, PT, K1 ####[facility] [address] [place] [id number] Protimeon 11-07-2019 PT Coag (PPP) [Time] 1.0 s Normal 0.9-1.[address] [facility] Comment on above: Result Comment: Meredith min K Antagonist (VKA) Therapeutic Range: INR 2 to 3 (Target INR of 2.5) Note: For patients treated with VKA drugs, such as warfarin, the [employer] 2012 Guideline recommends a therapeutic INR range of 2 to 3 (target INR of 2.5). This recommendation includes high-risk patients with antiphospholipid syndrome with previous arterial or venous thromboembolism, current-generation mechanical or bioprosthetic aortic heart valve replacement. Note: Patients with mechanical aortic valve replacement and additional risk factors for thromboembolic events (atrial fibrillation, previous thromboembolism, LV dysfunction, hypercoagulable conditions) or an older generation mechanical AVR (i.e., ball in-Cage) or any mechanical MVR should have a INR therapeutic range of 2.5 to 3.5 (target INR of 3). Anthony GH, et al. Chest 2012, 141:7S-47S Fercho RA, et al. [facility] 2017, 70: 252-289 Performed By: #### C BC, PT, K1 ####[facility] [id number] [phone] PT Coag (PPP) [Time] 10.4 s Normal 9.7-13.[address] [facility] Comment on above: Performed By: #### C BC, PT, K1 ####[facility] [id number] [place] [phone] SURGICAL PATHOLOGYon SURGICAL PATHOLOGY Specimen originated from [facility] Specimen #: [id number] Submitting Physician: NEDA HA MD FINAL DIAGNOSIS Uterus, cervix, and bilateral fallopian tubes, hysterectomy and bilateral salpingectomy (A): - Cervix: No significant pathologic abnormality. - Endometrium: Proliferative endometrium. - Myometrium: Leiomyomas. - Serosa: No significant pathologic abnormality. - Bilateral fallopian tubes: No significant pathologic abnormality. Jeannie Zapata MD (Electronic Signature) SPECIMEN SUBMITTED A: UTERUS, CERVIX, BILATERAL FALLOPIAN TUBES CLINICAL DATA ABNORMAL UTERINE BLEEDING (AUB), LMP: NEG HCG TODAY GROSS DESCRIPTION A. Received in formalin labeled uterus, cervix, bilateral tubes is a hysterectomy specimen consisting of uterus with attached cervix and attached bilateral tubes, with the uterus and cervix measuring 9 x 5 x 5 cm and weighing 120 grams. The ectocervical mucosa is remarkable for centralized, hyperemic area. There is a slit-like cervical os measuring 0.8 cm. The serosa is pink-hugo, smooth and glistening. The uterus is opened to reveal an endocervical canal measuring 3.5 cm. The endometrial cavity measures 3.5 cm in length x 2 cm in width. The endometrium is red-pink, hemorrhagic and shaggy with a thickness of 0.1 cm. Sectioning reveals two rubbery intramural nodules measuring 2.1 x 2.1 x 1.5 cm and 2.5 x 2.4 x 2 cm. The cut surfaces of the nodules are hugo-pink and whorled. The remaining myometrial cut surfaces are pink-hugo, slightly trabeculated and remarkable for a blood filled cystic structures, measuring 0.3 cm in greatest dimension. The right fimbriated fallopian tube measures 5.4 cm in length with a diameter ranging from 0.5 to 0.7 cm. The serosa is hugo-purple and remarkable for a paratubal cyst measuring 0.7 x 0.5 x 0.3 cm. Sectioning reveals a pinpoint lumen. The left fallopian tube measures 5.5 cm in length with a diameter ranging from 0.5 to 0.8 cm. The serosa is hugo-purple, smooth and glistening. Sectioning reveals a pinpoint lumen. Inter Com Installer sections are submitted as follows: A1-A2 anterior cervix, bisected, A3-A4 posterior cervix, bisected, A5 anterior uterus, A6 posterior uterus, A7 larger nodule, A8 smaller nodule, A9 right fallopian tube, A10 left fallopian tube. RSA/slb 11/07/2019 [place] [address] Date of Report: 11/11/2019 Date of Procedure: 11/07/2019 Date of Receipt: 11/07/2019 Submitted by: NEDA HA MD Location: [facility] Diagnostic interpretation performed at [place] [address]. CLIA Number: [id number] [facility] NURSING PROGon 11-05-2019 NURSING PROG HNO ID: [id number] Author: Nidia Alcala (Rn) TANYA Dubois Service: ? Author Type: Registered Nurse Type: Nursing Progress Note Filed: 11/05/2019 6:47 AM Note Text: PACC Nurse Progress Note History AND Physical: PACC Visit Date: 11/04/2019 Original HANDP Date: N/A ED visit Date: N/A Outside HANDP Scanned Date: N/A Labs Within Last 6 Months: CBC: Date 11/04/2019 WNL TYPE AND SCREEN: Date 11/04/2019 [place]: Date 11/04/2019 Covid 11/05/2019 820am, see Epic for results Imaging Within Last 12 Months: N/A Cardiac Testing: N/A Last Menstrual Period: LMP Date: 09/13/2019. Postmenopausal >1yr: No, S/P Hysterectomy: No BMI Percentile (PEDS): BMI 43.41 kg/(m2). Risk Assessment: N/A Anesthesia Review: N/A Narrative: N/A Pre-op Considerations: Iron deficiency anemia due to chronic blood loss: recent Hgb improved 11.7 10/04/2019. Wt 245 lb Chart Check: COMPLETED Nidia Dubois RN November 05, 2019 6:44 AM [facility] Confirm Blood Typeon 020 ABO/RH(D) Positive [facility] Comment on above: Performed By: #### C ONABO #### [facility] [address] [facility] [phone] Type and SCR (30D)on 020 ABO/RH(D) Positive [facility] Comment on above: Performed By: #### T SCR30 ####[facility] [id number] [phone] HOSPon 10-17-2019 HOSP Patient:Elmo Montoya MRN: Height:5' 3(1.6 m) Weight:245 lb (111.131 kg) Outpatient Medications as of 11/07/19: oxyCODONE-acetaminophen (PERCOCET) 5-325 mg tablet simethicone, chewable (MYLICON) 80 mg chewable tablet docusate sodium (COLACE) 100 mg capsule lacosamide (VIMPAT) 200 mg tab Admission/Clinic Administered Medications as of 11/07/19: lidocaine 10 mg/mL (1 %) 1-2 mg injection (XYLOCAINE) lactated ringers infusion ceFAZolin iv piggyback 2 g in D5W (iso-osmotic) 100 mL (ANCEF) scopolamine - REMOVE PATCH scopolamine - VERIFY patch scopolamine 1 mg over 3 days 1 Patch (TRANSDERM-SCOP) Problem List: CHANGE OF BOWEL HABITS-DIARRHEA [K59.1] Partial idiopathic epilepsy with seizures of localized onset, intractable, without status epilepticus (HCC) [G40.019] Elevated blood pressure reading without diagnosis of hypertension [R03.0] Iron deficiency anemia due to chronic blood loss [D50.0] Abnormal uterine bleeding (AUB) [N93.9] Allergies: Lamictal [Lamotrigine] Date Verified: 11/07/19 Lab Values Lab Value Units Date High Low POTA* 4.7 mmol/L 11/07/2019 5.1 3.7 CATHERINE* 37.4 % 11/07/2019 46.0 36.0 Progress Notes ([employer] [facility] [facility]): Danielle Cha LPN 10/22/2019 9:18 AM Signed FMLA paperwork completed, faxed to employer, scanned into EMR and original at desk for pt to pick up attendant, copy filed in [facility] [employer] nurses station. Danielle Cha LPN Progress Notes ([employer] [facility] [facility]): Annalee Haley LPN 10/17/2019 11:09 AM Signed Patient would like surgery on 11/07/19 @ [facility]. Please approve surgical order. Neda José MD 10/17/2019 11:30 AM Signed Ordered. Will need covid 19 testing prior to surgery at [facility] location. Annalee Haley LPN 10/17/2019 12:46 PM Addendum Please approve pre-op covid-19 testing. Nurse will schedule the test within 72 hours of surgery Previous Version Annalee Haley LPN 10/17/2019 12:47 PM Signed Addended by: ANNALEE HALEY LPN on: 10/17/2019 12:47 PM Modules accepted: Orders Neda José MD 10/17/2019 1:45 PM Signed ordered Neda José MD 10/17/2019 1:46 PM Signed Addended by: NEDA HA MD on: 10/17/2019 01:46 PM Modules accepted: Orders [facility] ALLIED HEALTHon 05-04-2019 ALLIED HEALTH HNO ID: [id number] Author: Willi Rmoero (Tech) Service: Radiology Author Type: Party Plan Sales Host/Hostess Type: Allied Health Filed: 05/04/2019 10:31 AM Note Text: Radiology Service Progress Note PATIENT NAME: Elmo Montoya DATE OF SERVICE: May 04, 2019 TIME: 10:30 AM PATIENT IDENTITY VERIFICATION COMPLETED USING TWO (2) IDENTIFIERS: Name and Date of confirmed by patient verbally and Name and Date of confirmed by identification band. PATIENT GENDER DATA: Female. status: : No status: NO. PATIENT RELEVANT IMPLANT DATA REVIEWED: Yes RADIOLOGY DEPARTMENT: MR; Exam(s) Completed: Head: Seizure PERIPHERAL IV DATA: Not applicable SIGNED BY: Willi Romero May 04, 2019 10:30 AM [facility] MRI BRAIN WO IVCONon 019 MRI BRAIN WO IVCON * * *Final Report* * * DATE OF EXAM: May 04 2019 11:13AM [facility] 0294 - MRI BRAIN WO IVCON / PROCEDURE REASON: * * * * Physician Interpretation * * * * RESULT: EXAMINATION: MRI BRAIN WO IVCON CLINICAL HISTORY: TECHNIQUE: Routine noncontrast MRI protocol including diffusion images. MQ: [id number] COMPARISON: None. RESULT: Acute Change: There is no evidence of restricted diffusion to suggest an acute infarct. Hemorrhage: No evidence of prior parenchymal hemorrhage on the provided images. Mass Lesion/ Mass Effect: No evidence of an intracranial mass or extra-axial fluid collection. No significant mass effect. Chronic Change: The white matter is within normal limits of signal intensity for age. Parenchyma: No significant volume loss for age. The brain parenchyma is otherwise within normal limits of signal intensity and morphology. Ventricles: Normal caliber and morphology. Skull Base: Hypothalamic and pituitary region are grossly normal. Craniocervical junction is normal. No significant marrow replacement process. Vasculature: Major intracranial arterial structures, and dural venous sinuses show typical flow void, suggesting patency by spin echo criteria. Other: Mucous retention cyst left maxillary antrum. Mastoid air cells are clear. Advanced degenerative changes right TMJ. The orbits and extracranial soft tissues are unremarkable. IMPRESSION: Normal MR appearance of the brain. No distinct epileptogenic structural abnormality identified. Advanced degenerative changes right TMJ. Transcribed Using Voice Recognition Transcribe Date/Time: May 04 2019 1:55P Dictated by: SCOOTER MOMIN MD This examination was interpreted and the report reviewed and electronically signed by: SCOOTER MOMIN MD on May 04 2019 2:03PM EST [id number] [facility] ANES Zane 03-28-2019 ANES POST HNO ID: [id number] Author: Ivan Campbell Service: Anesthesiology Author Type: Anesthesiologist Type: Anesthesia PostOp Filed: 03/28/2019 9:07 AM Note Text: POST ANESTHESIA EVALUATION NOTE SERVICE DATE: 03/28/2019 SERVICE TIME: 9:07 AM : 1980 Vitals: 03/28/19 0639 03/28/19 0821 03/28/19 0900 Temp: 36.4 ?C (97.5 ?F) 36.9 ?C (98.4 ?F) 36.6 ?C (97.9 ?F) 03/28/19 0821 03/28/19 0830 03/28/19 0845 03/28/19 09 BP: 132/78 127/75 146/91 145/92 03/28/19 0821 03/28/19 0830 03/28/19 0845 03/28/19 09 Pulse: 99 87 92 87 03/28/19 0821 03/28/19 0830 03/28/19 0845 03/28/19 0900 Resp: 16 15 25 16 03/28/19 0821 03/28/19 0830 03/28/19 0845 03/28/19 0900 SpO2: 100% 100% 98% 98% Validated Vital Signs: Yes POST ANES STATUS: No apparent anesthetic complications. The patient is appropriately hydrated with stable respiratory and cardiovascular status. Patient has safe and adequate airway control. The patient has appropriate pain relief and no significant post operative nausea or vomiting. The patient has achieved baseline mental status. Intra-Operative Events: No Significant Anesthesia Events Further assessment by Anesthesia Service: None Other Remarks: SIGNATURE: Ivan Campbell MD PATIENT NAME: Elmo Montoya DATE: March 28, 2019 TIME: 9:07 AM [phone] PREOP HNO ID: [id number] Author: Ivan Campbell Service: Anesthesiology Author Type: Anesthesiologist Type: Anesthesia PreOp Filed: 03/28/2019 7:13 AM Note Text: ANESTHESIOLOGY DAY OF SURGERY NOTE SERVICE DATE: 03/28/2019 SERVICE TIME: 7:11 AM : 1980 Procedure(s) (LRB): HYSTEROSCOPY, SURGICAL; WITH SAMPLING BIOPSY OF ENDOMETRIUM AND/OR POLYPECTOMY WITH DANDC (N/A) Surgeon(s): Neda Ha Estimated body mass index is 42.98 kg/m? as calculated from the following: Height as of 03/26/19: 161.3 cm (5' 3.5). Weight as of 03/26/19: 111.8 kg (246 lb 8 oz). Most recent hematocrit and potassium results: Hematocrit 34.8 03/23/2019 Potassium 4.0 08/31/2018 ANES DOS/PREOP NOTE: Vitals: 03/28/19 0639 BP: 161/96 Pulse: 100 Resp: 16 Temp: 36.4 ?C (97.5 ?F) SpO2: 99% ACTIVE PROBLEM LIST Calculus of Gallbladder With Other Cholecystitis, Without Mention of Obstruction CHANGE OF BOWEL HABITS-DIARRHEA Partial Idiopathic Epilepsy With Seizures of Localized Onset, Intractable, Without Status Epilepticus (Hcc) Elevated Blood Pressure Reading Without Diagnosis of Hypertension PAST MEDICAL HISTORY Diagnosis Date - Localization-related (focal) (partial) epilepsy and epileptic syndromes with simple partial seizures, without mention of intractable epilepsy Workup for epileptic cause neg - Temporomandibular joint disorders, unspecified PAST SURGICAL HISTORY Procedure Laterality Date - COLONOSCOPY W/BX 08-28-08 - LAP CHOLECYSTECT/CHOLANGIOG TYSHAWN 10/06/05 - OPEN RX NOSE/JAW FRACT+WIRES 1995 FAMILY HISTORY Problem Relation Age of Onset - Breast Cancer Maternal Grandmother - Coronary Artery Disease Maternal Grandfather - Hypertension Maternal Grandfather - Lipids Maternal Grandfather - Coronary Artery Disease Paternal Grandfather 82 [place] Social History: Social History Tobacco Use - Smoking status: Never Smoker - Smokeless tobacco: Never Used Substance Use Topics - Alcohol use: No - Drug use: No No current facility-administered medications on file prior to encounter. No current outpatient medications on file prior to encounter. Current Facility-Administered Medications Medication Dose Route Frequency Provider Last Rate Last Dose - lidocaine 10 mg/mL (1 %) 1-2 mg injection (XYLOCAINE) 0.1-0.2 mL INTRADERMAL PRN Neda Mcgeentosh - lactated ringers infusion 5-30 mL/hr INTRAVENOUS CONTINUOUS Neda Nejeremyt Ha 30 mL/hr at 03/28/19 0700 30 mL/hr at 03/28/19 0700 Allergies: ALLERGIES Allergen Reactions - Lamictal [Lamotrigi* Swelling DOS EXAM: Adequate NPO status: Yes Anesthetic risks, benefits, alternatives, personnel and consent discussed: Yes Patient agrees to proceed: Yes Previous Anesthesia: No history of adverse event. Airway Assessment: MP 2; Neck ROM: Full ROM without neurologic symptoms; Airway Evaluation: Thick neck Symptoms of Sleep Apnea: Snoring Dentition: Teeth intact Additional Physical Exam: Lungs: Patient health status unchanged since recent history and physical. See history and physical for exam findings. Cardiac: Patient health status unchanged since recent history and physical. See history and physical for exam findings. Additional Pertinent Findings: N/A Blood Products: Not anticipated for this procedure. Anesthetic Plan: MAC with Sedation, GA backup Pain Management Plan: Parenteral or Oral ASA Class: 3 Other Medical Problems: None Chronic Beta Marybel medication administered within 24 hours: N/A I have interviewed and examined the patient. I have reviewed the medical record and/or the pre-anesthesia evaluation, pertinent labs, and test results. Significant changes in the patient's condition since the History and Physical, not otherwise documented in primary service progress notes: No This contains updated information obtained within 48 hours of Surgery/Procedure. SIGNATURE: Ivan Campbell MD PATIENT NAME: Elmo Montoya DATE: March 28, 2019 TIME: 7:11 AM CSN: [id number] [facility] NURSING PROGon 03-28-2019 NURSING PROG HNO ID: [id number] Author: Paula Valero RN Service: Nursing Author Type: Registered Nurse Type: Nursing Progress Note Filed: 03/28/2019 6:53 AM Note Text: PRE OP LEARNING ASSESSMENT PROCEDURE/SURGERY: SURGERY: Preop protocol READINESS TO LEARN COGNITIVE ABILITY: Alert and oriented MOTIVATION TO LEARN: Eager FAMILY SUPPORT: High - Very involved in pt care PATIENT LEARNS BEST BY: Verbal Instruction FACTORS AFFECTING LEARNING: None PHYSICAL LIMITATIONS AFFECTING LEARNING: None Electronically Signed By: Paula Valero RN In Department: [facility] SURGERY [facility] OPERATIVE NOon 03-28-2019 OPERATIVE NO HNO ID: [id number] Author: Neda Ha Service: Gynecology Author Type: Physician Type: Operative Report Filed: 03/28/2019 8:21 AM Note Text: BLACKSMITH ASSISTANT OPERATIVE/PROCEDURE REPORT LOG ID: [id number] Surgery/Procedure Date: 03/28/2019 Incision/Procedure Start Time: 7:49 AM Incision Close/Procedure End Time: 8:10 AM Surgeon(s)/Proceduralis t(s) and Occupational Therapy Teacher(s): Surgeon(s) and Role: * Neda Ha - Primary Informed Consent: Informed Consent obtained and on the chart Procedure: Hysteroscopy with DANDC Pre-Op/Pre-Procedure Diagnosis: Endometrial polyp, Fibroids/Leiomyomas and AUB Post-Op/Post-Procedure Diagnosis: Same as pre-op diagnosis Antibiotic: None Procedure Details: Patient was taken to the operating room where the sign-in and time out were completed. IV sedation was administered and found to be adequate. Switched to LMA general during procedure- She was placed in dorsal lithotomy position with her feet in Yellowfin stirrups with careful attention not to hyperflex or hyperextend the knees or hips. SCDs were placed and turned on for DVT prophylaxis. Examination under anesthesia was performed to ascertain the position of the uterus which noted to be anteverted. Patient was prepped and draped in the usual fashion. An open-sided speculum was placed in the patient's vagina with clear visualization of the cervix. The anterior lip of the cervix was grasped with a single tooth tenaculum. Cervix was already dilated.. A 5 mm 0-degree hysteroscope was introduced under direct visualization, and the uterus was distended with normal saline. Fluid deficit was 300 cc. The hysteroscope was then used for initial survey revealing below findings. The uterine cavity was well visualized. The fallopian tube ostia were visualized bilaterally. Findings: Endometrium: Thickened endometrium and possible polypoid tissue Endometrial cavity: Normal Polyps: possibl polypoid tissue Fibroids: No fibroids Other: None Additional techniques Include: The myosure hysteroscope was inserted and NS was used as distention medium. Possible polypoid tissue noted on posterior aspect and fundal aspect of uterus. The lite resector device was used to removed the tissue. No large fibroids or other abnormalities were noted. Once the tissue was removed with resecting device sharp curettage was performed and endometrial curetting placed on telfa. Hysteroscope was reinserted and resector device used to remove remaining thickened tissue. Bilateral Ostia noted. Cavity appeared to be normal. Fluid deficit 300cc. Procedure complete. Instrument and lap count correct x 2 All instruments were removed from vagina and uterine cavity. Sign-out was completed. Distention Media: NS IV Fluids: Urine Output: 10 mL Estimated Blood Loss: 5ml Specimens: Endometrial curettings and Procedure: Dilation and Curettage Implantable Devices: None Drains: None Complications: None A digital sweep of the vaginal canal was performed by Neda José MD and it was ascertained that no instruments or other foreign bodies are retained within the cavity. Sponge, lap, and needle counts were correct times two and the patient was taken to the recovery room with stable vital signs after tolerating the procedure well. I/primary surgeon/proceduralist performed the procedure No qualified resident/fellow was available. SIGNATURE: Neda José MD PATIENT NAME: Elmo Montoya DATE: March 28, 2019 TIME: 8:13 AM PAGER/CONTACT #: [facility] PT EDon 03-28-2019 PT ED HNO ID: [id number] Author: Paula Glover) TANYA Valero Service: Nursing Author Type: Registered Nurse Type: Patient Education Filed: 03/28/2019 9:15 AM Note Text: POST OP LEARNING RESPONSE INSTRUCTION PROVIDED TO: Patient and family member METHOD OF INSTRUCTION: Written instruction - handouts PATIENT / FAMILY RESPONSE: Verbalizes understanding of: POST-OPERATIVE INSTRUCTIONS-Correct actions to take to reduce postoperative complications FOLLOW-UP PLAN: Patient instructed to call with any further issues SUPPLEMENTAL MATERIAL: None REFERRAL (RECOMMENDATION): None Electronically Signed By: Paula Valero RN In Department: [facility] SURGERY [facility] SURGICAL PATHOLOGYon 019 SURGICAL PATHOLOGY Specimen originated from [facility] Specimen #: [id number] Submitting Physician: NEDA HA MD FINAL DIAGNOSIS Endometrium, curettage Fragments of benign endometrial polyp. - Background weakly proliferative endometrium with breakdown. - Fragments of benign smooth muscle; see comment. - Endocervical mucosa with no significant pathologic abnormality. COMMENT The benign smooth muscle could be part of a submucosal leiomyoma or an adenomyomatous polyp. Correlate clinically. Jeannie Zapata MD (Electronic Signature) SPECIMEN SUBMITTED A: ENDOMETRIAL, CURETTINGS CLINICAL DATA ABNORMAL UTERINE BLEEDING; ENDOMETRIAL POLYP; ADENOMYOSIS; UTERINE FIBROID, LMP: HCG NEGATIVE GROSS DESCRIPTION A. Received in formalin on Telfa gauze and in a sock are multiple hugo and red-brown, soft feathery segments of tissue and hemorrhagic material aggregating to 3.0 x 2.5 x 0.4 cm. Totally submitted in one cassette. Gross examination performed at [facility], [address] [place] [address] 03/28/2019 11:25:43 AM Date of Report: 04/01/2019 Date of Procedure: 03/28/2019 Date of Receipt: 03/28/2019 Submitted by: NEDA HA MD Location: [facility] Diagnostic interpretation performed at [facility], [address] [place] [address]. [place] Number: [id number] [facility] HOSPon 03-01-2019 HOSP Patient:Elmo Montoya MRN: Height:5' 3.5(1.613 m) Weight:246 lb 8 oz (111.812 kg) Outpatient Medications as of 03/28/19: lacosamide (VIMPAT) 200 mg tab levonorgestrel (MIRENA) 20 mcg/24 hours (5 yrs) 52 mg IUD Admission/Clinic Administered Medications as of 03/28/19: lidocaine 10 mg/mL (1 %) 1-2 mg injection (XYLOCAINE) lactated ringers infusion Problem List: Calculus of gallbladder with other cholecystitis, without mention of obstruction [K80.10] CHANGE OF BOWEL HABITS-DIARRHEA [K59.1] Partial idiopathic epilepsy with seizures of localized onset, intractable, without status epilepticus (HCC) [G40.019] Elevated blood pressure reading without diagnosis of hypertension [R03.0] Allergies: Lamictal [Lamotrigine] Date Verified: 03/28/19 Lab Values Lab Value Units Date High Low CATHERINE* 34.8 % 03/23/2019 46.0 36.0 Progress Notes (FV PROVIDER ADULT): Luca Egan APRN.CNP 03/26/2019 12:18 PM Signed Prescribing Provider Encounter Provider Otoniel Ocampo Outpatient Medication Detail Disp Refills Start End lacosamide (VIMPAT) 200 mg tab 60 tablet 5 03/26/2019 09/22/2019 Sig: Take 1 tablet by mouth twice daily for 180 days. Class: Call Rx Route: ORAL Order: [id number] Please call into [facility] under dr. Ocampo. Luca Egan APRN.ILEANA Dacosta RN, RN 03/26/2019 4:03 PM Signed Called [facility] Pharmacy. Message left on pharmacy VM for LCM 200 mg tab #60/30 with 5 rfs. ICD 10 - G40.019. Requested to notify patient when ready for pick up attendant. Caron Dacosta RN Progress Notes (NEUR EPIL FRVW): Otoniel Ocampo MD PHD 03/27/2019 1:56 PM Signed [facility] Patient Name: Elmo SAEZ Date of : 1980 INITIAL EPILEPSY CLINIC NOTE March 26, 2019 11:20 AM CHIEF COMPLAINT: Patient presents with: New Patient HISTORY OF PRESENT ILLNESS: Ms. Montoya is a 39 year old right handed woman with epilepsy here to establish care. Seizure History: History of seizures that began after delivery; post- which initially was attributable to pre-eclampsia but recurred. Seizures. Only at night out of sleep. Usually seem around menstrual period and only out of sleep by her report. Last seizure was perhaps about a year ago. She was originally on dilantin- did okay but attempted wean and was not successful bu tdid well. She was also trialed on lamotrigine and had throat swelling and allergic reaction. Was also trial on topamax, switched to topamax to vimpat (not sure why she made the change). Vimpat 150 mg bid currently. Taken this for several years. She has been compliant with treatment. Last two weeks she had increase her seizures. Attributed herself that she started on hormonal treatment for abnormal uterine bleeding. She felt off on it and felt this contributed to her most recent surgery and will having surgery for a fibroid. Current Outpatient [facility] Medications lacosamide (VIMPAT) 150 mg tab (Taking) Take 1 tablet by mouth twice daily for 100 days. Number of times this order has been changed since signin Order Audit Coyote Notes just problems with slow awakening. Episode Description: No warning with the events. Seizures appear to be generalized seizure (generalized tonic clonic). During the day, she has had episodes on occasion where she will zone out for 30 seconds. She will also get some hand twitching when this happens. She has the episodes where she will pick. These can happen and she has no warning or recognition after this. No residual effects after these episodes. Frequency can be three in a month. Then she can go 3 months without an episode. Patient Entered Data: EPILEPSY SCORE 03/22/2019 7:07 AM 03/21/2019 8:09 AM PHQ-9 SCORE 0 [None-Minimal Depression] - CAMILO 2 SCORE 0 [Negative Anxiety Screen] - CAMILO 7 SCORE - - QOLIE-10 SCORE 19 - LSSS SCORE 57.5 - C-SSRS SCREEN - - On average, how many hours of sleep do you get in a 24-hour period? 8 - PROMIS Sleep Disturbance T-SCORE - 44 [within normal limits] Have you been diagnosed with Sleep Apnea? No - Seizure risk factors: Brain Tumor No POOL TABLE MECHANIC Infections No Developmental Delay No Family history of epilepsy No Febrile Seizure No Complications No Stroke No Traumatic Brain Injury No Other caregivers: Primary Care Provider: Cari Zaldivar PA-C Current Outpatient Medications: lacosamide (VIMPAT) 150 mg tab Take 1 tablet by mouth twice daily for 100 days. norethindrone (AYGESTIN) 5 mg tablet 1 tablet 1-3 times daily. (Patient not taking: Reported on 03/26/2019 ) levonorgestrel (MIRENA) 20 mcg/24 hours (5 yrs) 52 mg IUD 1 Each by INTRAUTERINE route one time only for 1 dose. No current facility-administered medications for this visit. ALLERGIES Allergen Reactions - Lamictal [Lamotrigi* Swelling PAST MEDICAL HISTORY Diagnosis Date - Localization-related (focal) (partial) epilepsy and epileptic syndromes with simple partial seizures, without mention of intractable epilepsy Workup for epileptic cause neg - Temporomandibular joint disorders, unspecified- done Abnormal uterine bleeding Fibroid PAST SURGICAL HISTORY Procedure Laterality Date - COLONOSCOPY W/BX 08-28-08 - LAP CHOLECYSTECT/CHOLANGIOG TYSHAWN 10/06/05 - OPEN RX NOSE/JAW FRACT+WIRES 1995 FAMILY HISTORY Problem Relation Age of Onset - Breast Cancer Maternal Grandmother - Coronary Artery Disease Maternal Grandfather - Hypertension Maternal Grandfather - Lipids Maternal Grandfather - Coronary Artery Disease Paternal Grandfather 82 [place] SOCIAL HISTORY: -Lives in [facility]. -Patient lives alone? 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 Not driving at this time. REVIEW OF SYSTEMS: GENERAL: No fever, unintentional weight loss, LAD, fatigue, night sweats HEME: No unusual bruising or bleeding HEENT: No headache, vertigo, trauma, loss of vision, photophobia, diplopia, visual hallucinations, tinnitus, change in hearing, dysarthria, dysphagia SKIN: No lesions or rashes MUSCULOSKELETAL: No joint pain, swelling, back pain RESPIRATORY: No cough, dyspnea, orthopnea CARDIOVASCULAR: No chest pain, palpitations, pedal edema, clots GI: No nausea, vomiting, abdominal pain, change in bowel habits : No dysuria, hematuria, urgency, increased frequency, incontinence NEURO: See HPI. ++ seizure, changes in sensation, weakness, balance, memory changes, tremor PSYCH: No history of depression, anxiety, insomnia, or other psychiatric disorders. VITAL SIGNS: BP 157/115 (BP Site: Left Arm, BP Position: Sitting, BP Cuff Size: Large Adult) Pulse 105 Temp 37.4 ?C (99.3 ?F) Resp 20 Ht 161.3 cm (5' 3.5) Wt 111.8 kg (246 lb 8 oz) LMP 03/15/2019 SpO2 96% BMI 42.98 kg/m? GENERAL EXAMINATION: General: Awake, alert, interactive, no acute distress, good nutritional status, normal development, well-kept Eyes: normal fundoscopy Cardiovascular: no peripheral edema Respiratory: no signs of respiratory distress Neurological Examination MENTAL STATUS: oriented to person, place, time, situation, memory intact, fund of knowledge appropriate, attentive, cooperative LANGUAGE: naming and repetition intact, fluent, no aphasia or dysarthria, comprehension intact CRANIAL NERVES: II: pupils 3mm, equal, and briskly reactive to light, no visual field deficits to finger counting all quadrants III, IV, : EOM intact and conjugate, no gaze preference or deviation, no nystagmus V: normal sensation in V1, V2, and V3 bilaterally to light touch VII: no facial asymmetry VIII: normal hearing to speech IX, X: normal palatal elevation, no uvular deviation XI: 5/5 shoulder shrug bilaterally XII: no deviation on tongue protrusion MOTOR: Bilateral upper extremity 5/5 in deltoid, elbow flexion, elbow extension; no arm drift, intact fine motor movements; REFLEXES: 2+ in bilateral biceps, brachioradialis, triceps, patellar SENSORY: light touch sensation intact in all extremities; no neglect; Romberg test negative COORDINATION: normal finger to nose GAIT: Normal; IMPRESSION: The patient's history is suggestive 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 Patient continues to hae seizures on medication without recent change, discussed she at risk of intractability medically and this was discussed. Epilepsy Classification Focal Epilepsy Seizure Classification Seizure Type A: Motor Seizure: Automotor (with LOC) -> Motor Seizure: Generalized Tonic-Clonic (with LOC) PLAN: - Data reviewed as above including: outside records - Testing ordered: MRI brain without contrast (3T per epilepsy protocol) and Routine EEG - Medical management: Medication changes were discussed. Increase vimpat to 200 mg bid, if does not work, consider zonisamide, - Education: The following issues were discussed with the patient on this visit and written instructions provided as below: Seizure precautions and safety, seizure first aide, when to seek emergency care. Counseling was provided to the patient that missed medications, addition of some new medications, use of alcohol or other substances, and sleep deprivation can lower the seizure threshold. Patient was advised to not drive (in compliance with [place] state law) until released by a physician. Patient was given my clinic contact information. If fails medicines, consider video EEG and potential presurgical evaluation which was discussed with the patient. I discussed the risks, benefits and alternatives of the medical plan with the patient. Questions were answered. The patient agreed with the plan as discussed. FOLLOW-UP: 4 months Otoniel Ocampo MD, PhD Staff, [facility]rology Clinical Paving Block Cuttercommercial leasing agent, [facility] Board Certified, Epilepsy and Neurology cc: Primary Care Physician: Cari Zaldivar PA-C [id number] [place] [address] Referring Physician: Patient: Ms. Elmo Montoya [address] [place] [address] Otoniel Ocampo MD PHD 03/26/2019 11:52 AM Addendum This problem is too complex to handle over the phone or via messaging. This is best addressed with either an office appointment with me or a virtual visit. Virtual visits are video calls done on any computer or cell phone that has a camera and an internet connection (similar to Face time or Skype). This way the problems can be addressed in greater detail, and patients do not have to come into the office. HOW DO I GET STARTED? On an iPhone, iPad, or Android Device: 1. Open up the Jacoby Store or Bizpora and search [facility] cacaoTV Online 2. Download and Install the Application 3. Tap on Sign Up and create a patient account for yourself 4. Please use an e-mail address that you frequently check, as you will receive an e-mail appointment from [facility] [employer] [facility] Online On a desktop/laptop computer that has a webcam connected: 1. Go to the URL: [email or web address] 2. Click on Sign Up and Create a patient account for yourself 3. Please also follow the links to ?Test My Computer? 4. Follow the steps suggested, testing your Internet Speed, Webcam, Microphone, Speaker, and your video software. 5. Please make sure your video software is up-to-date. This is a safe, [facility] approved download, and will not harm your computer. OTHER TIPS: 1. Important: Don?t forget your password you choose during setup. 2. Once the visit is scheduled, you should plan to begin your visit at least 15 minutes prior to the start of your visit. 3. You can begin by opening the email you received to schedule this visit, click on ?Start Visit,? agree to the Terms of Use, and wait for your visit to start! HELPFUL RESOURCES: Please call the [facility] at [phone] or toll free [phone] prior to your visit if you need help setting up your device. Find our user guide, here: [email or web address] A common cause of recurrent seizure is missing doses of the seizure medicine. However, sometimes seizures are difficult to control even when you take the medicine correctly. If this is the case for you, it may be necessary to increase your dosage or add or change to another medicine. HOME CARE: 1. Since seizures are not predictable, you must avoid doing anything that might cause danger to you or others if you have another one. Therefore, until the seizures are under good control, take these precautions: ? Do not drive a car, motorcycle, or heavy machinery. ? Do not operate dangerous equipment such as power tools ? Use a shower instead of a bath ? Do not swim or climb (ladders, trees, roofs) 2. Tell your close friends and relatives about your seizure and teach them what to do for you if it happens again. 3. If you were prescribed a medicine to prevent seizures, take it exactly as directed. It does not work when taken on an as needed basis. Missing doses will increase the risk of having another seizure. 4. If you miss a dose, take the missed dose as soon as you remember. If it is almost time for your next dose, skip the missed dose. Restart the medicine at your next scheduled time. Do not take extra medicine to make up the missed dose. 5. Consider a Medic-Alert bracelet or carry information in your wallet to advise emergency personnel of your condition. FOR FUTURE SEIZURES: IF YOU ARE ALONE: If you feel a seizure coming on, lie down on a bed or on the floor. Lie on your side, not on your back. This will prevent falling, promote drainage of oral secretions out of the mouth and prevent choking. Be sure that you are clear of any objects that might injure you during the seizure. Call for help if there is time. IF SOMEONE IS WITH YOU: If someone is with you before the seizure, they should help you get in a safe position and call for help. They should not try to force anything in your mouth once the seizure has begun. Doing this may cause injury. FOLLOW UP as directed. . GET PROMPT MEDICAL ATTENTION (emergecy evaluatoin) if any of the following occur: ? Seizures occurring more often or becoming longer than usual ? Seizure lasting over 5 minutes ? Seizures happen back to back (cluster) where in between each seizure you do not regain normal consciousness ? Remaining confused for more than 30 minutes after a seizure ? Injury during a seizure or medically unstable (not breathing, no pulse) ? Fever over 100.4?F (38.0?C) Previous Version Maya Iniguez RN, RN 03/26/2019 12:13 PM Signed The following prescriptions have been called to E- [id number] [place] [address] [address] [facility]. ?- [phone] [phone] [id number] pharmacy 03/26/2019 at 11:58 AM by Maya Iniguez RN. I spoke with Naz in the pharmacy. Signed Prescriptions Disp Refills lacosamide (VIMPAT) 200 mg tab 60 tablet 5 Sig: Take 1 tablet by mouth twice daily for 180 days. CARMELA Class: C-V This call took 15 minutes. [facility] MG Breast Tomosynthesis Scr Blon 07-19-2017 MG Breast Tomosynthesis Scr Bl Patient Name: ELMO MONTOYA Mammography Exam Date/Time 07/19/2017 09:20:26 EST Exam MG Breast Tomosynthesis BI Scr Ordering Physician MD MELCHOR ANNE M Accession Number [id number] CPT4 Codes 45948 (MG Breast Tomosynthesis Scr Bl), 85886 (MG MAMMO 2D SCREENING) Reason For Exam screening Report PATIENT HISTORY: Family history of breast cancer in maternal grandmother, breast cancer at age 50 or over and ovarian cancer at age 50 or over in maternal great aunt. Took hormonal contraceptives for 4 years. Patient has never smoked. Patient's BMI is 40.7. TIME SINCE LAST MAMMOGRAM: Last mammogram was performed 2 years and 9 months ago. REASON FOR EXAM: screening, asymptomatic. PROCEDURE: MG BREAST TOMOSYNTHESIS BL SCR: JULY 19, 2017 - 2D/3D Procedure 3D Bilateral CC and MLO view(s) were taken. 2D Bilateral CC and MLO view(s) were taken. Prior study comparison: October 21, 2014, bilateral screening mammogram performed at [facility]. October 14, 2013, bilateral MG mammogram digital screening, performed at [facility]. The breast tissue is heterogeneously dense, which could obscure underlying abnormalities. No suspicious masses, architectural distortions or suspiciously clustered microcalcifications are identified. There is no evidence of skin thickening or nipple retraction. There are no significant changes when compared with prior studies. Markings on images: BB's = Nipples; skin lesions Open kobuk = Palpable Line = Scar 2D digital mammography and tomosynthesis imaging were performed and reviewed with CAD. ASSESSMENT: Category 1 Negative No mammographic evidence of malignancy. RECOMMENDATION: Routine screening mammogram of both breasts in 1 year. Final Signed Date and Time: 07/19/2017 11:29 am Signed by: MD LULU, RADHA Nuñez Normal [facility] Vital Signs Date Time Vital Sign Value Performing Clinician Faci lity 08-06-2024 07:46-0500 Body height 160 cm Neda Ha MD Work Phone: [facility] 08-06-2024 07:46-0500 Diastolic blood pressure 98 mm[Hg] Neda Ha MD Work Phone: [facility] 08-06-2024 07:46-0500 Systolic blood pressure 158 mm[Hg] Neda Ha MD Work Phone: [facility] 08-02-2023 08:37-0500 Body height 160 cm Neda Ha MD Work Phone: [facility] 08-02-2023 08:37-0500 Diastolic blood pressure 90 mm[Hg] Neda Ha MD Work Phone: [facility] 08-02-2023 08:37-0500 Systolic blood pressure 148 mm[Hg] Neda Ha MD Work Phone: [facility] 02-24-2023 13:36-0400 Diastolic blood pressure 104 mm[Hg] Areli Wilcox APRN.CNP Work Phone: [facility] 02-24-2023 13:36-0400 Systolic blood pressure 152 mm[Hg] Areli Wilcox APRN.CNP Work Phone: [facility] 04-05-2022 09:44-0400 Diastolic blood pressure 100 mm[Hg] Neda Ha MD Work Phone: [facility] 04-05-2022 09:44-0400 Systolic blood pressure 162 mm[Hg] Neda Ha MD Work Phone: [facility] Encounters Encounter Date Encounter Type Care Provider Facility Start: 11-01-2024 End: 11-01-2024 Patient encounter procedure Otoniel Ocampo MD, PhD Work Phone: Neurology Comment on above: 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, intractable, without status epilepticus (HCC) (Primary Dx); Encounter for monitoring anticonvulsant therapy Start: 11-01-2024 End: 11-01-2024 Telemedicine consultation with patient Otoniel Ocampo MD, PhD Work Phone: Neurology Start: 11-01-2024 End: 11-01-2024 ambulatory OTONIEL OCAMPO Facility:[facility] Start: 09-06-2024 End: 09-06-2024 Telephone encounter Otoniel Ocampo MD, PhD Work Phone: Neurosurgery Comment on above: Medication concern ( Seizure medications) Start: 09-01-2024 End: 09-02-2024 Refill Dajuan Fowler APRN.LOGISTICS MANAGEMENT SPECIALIST Work Phone: Neurology Comment on above: Refill Request Start: 08-07-2024 End: 10-07-2024 Follow-up encounter Neda Ha MD Work Phone: OB/Gynecology Start: 08-06-2024 End: 08-06-2024 Patient encounter procedure Neda Ha MD Work Phone: OB/Gynecology Comment on above: Encounter for gyneco logical examination (general) (routine) without abnormal findings (Primary Dx); Encounter for screening mammogram for breast cancer; Screen for colon cancer Start: 08-06-2024 End: 08-06-2024 Patient encounter status Neda Ha MD Work Phone: [facility] Start: 08-06-2024 End: 08-06-2024 ambulatory NEDA HA Facility:[facility] Start: 08-06-2024 End: 08-06-2024 Subsequent hospital visit by physician [facility] Comment on above: Encounter for screen ing mammogram for breast cancer [Z12.31] Start: 05-20-2024 End: 05-20-2024 Refill Otoniel Ocampo MD, PhD Work Phone: Neurology Comment on above: Refill Request Start: 05-18-2024 End: 05-20-2024 Refill Dajuan Fowler APRN.LOGISTICS MANAGEMENT SPECIALIST Work Phone: Neurology Comment on above: Refill Request Start: 03-09-2024 End: 03-11-2024 Refill Otoniel Ocampo MD, PhD Work Phone: Neurology Comment on above: Refill Request Start: 11-02-2023 Telephone encounter Otoniel wayne MD, PhD Work Phone: Neurology Comment on above: Medication Authoriza tion Start: 11-01-2023 End: 11-01-2023 Patient encounter procedure Otoniel Ocampo MD, PhD Work Phone: Neurology Comment on above: 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, intractable, without status epilepticus (HCC) Start: 11-01-2023 End: 11-01-2023 Telemedicine consultation with patient Otoniel Ocampo MD, PhD Work Phone: Neurology Start: 09-09-2023 Refill Deepthi HOLDENN.LOGISTICS MANAGEMENT SPECIALIST Work Phone: Neurology Comment on above: Refill Request Start: 08-15-2023 End: 08-15-2023 Subsequent hospital visit by physician [facility] Work Phone: Radiology Comment on above: Follow-up examinatio n of abnormal mammogram [R92.8] Start: 08-13-2023 Refill Fern SIEGELLOGISTICS MANAGEMENT SPECIALIST Work Phone: Neurology Comment on above: Refill Request Start: 08-02-2023 End: 08-02-2023 Patient encounter procedure Neda Ha MD Work Phone: OB/Gynecology Comment on above: Encounter for gyneco logical examination (general) (routine) without abnormal findings (Primary Dx); Encounter for screening mammogram for breast cancer Start: 08-02-2023 End: 08-02-2023 Patient encounter status Neda Ha MD Work Phone: [facility] Start: 03-22-2023 End: 03-22-2023 Subsequent hospital visit by physician [facility] Work Phone: Radiology Comment on above: Breast lump on left side at 1 o'clock position [N63.21] Start: 02-24-2023 End: 02-24-2023 Patient encounter procedure Areli Wilcox APRN.LOGISTICS MANAGEMENT SPECIALIST Work Phone: OB/Gynecology Comment on above: Breast lump on left side at 1 o'clock position (Primary Dx) Start: 12-16-2022 End: 12-16-2022 ambulatory Otoniel Ocampo MD, PhD Work Phone: Neurology Comment on above: 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, intractable, without status epilepticus (HCC) (Primary Dx) Start: 12-16-2022 End: 12-16-2022 Telemedicine consultation with patient Otoniel Ocampo MD, PhD Work Phone: [facility] Start: 10-10-2022 Telephone encounter Otoniel wayne MD, PhD Work Phone: Neurology Comment on above: Patient Question Start: 08-18-2022 Refill Otoniel burns MD, PhD Work Phone: Neurology Comment on above: Refill Request Start: 08-05-2022 End: 08-05-2022 ambulatory Otoniel Ocampo MD, PhD Work Phone: Neurology Comment on above: 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, intractable, without status epilepticus (HCC) (Primary Dx) Start: 08-05-2022 End: 08-05-2022 Telemedicine consultation with patient Otoniel Ocampo MD, PhD Work Phone: [facility] Start: 04-05-2022 End: 04-05-2022 Patient encounter procedure Neda Ha MD Work Phone: OB/Gynecology Comment on above: Encounter for gyneco logical examination (general) (routine) without abnormal findings (Primary Dx); Encounter for screening mammogram for breast cancer Start: 04-05-2022 End: 04-05-2022 Patient encounter status Neda Ha MD Work Phone: OB/Gynecology Start: 03-17-2022 Documentation procedure Mammog tyshawn Coordinator [facility] Start: 03-17-2022 Letter encounter Mammography Coordinator [facility] Department Start: 03-17-2022 End: 03-17-2022 Subsequent hospital visit by physician Screen Mammo [facility] Comment on above: Encounter for screen ing mammogram for breast cancer [Z12.31] Start: 01-04-2022 End: 01-04-2022 ambulatory Otoniel Ocampo MD, PhD Work Phone: Neurology Comment on above: 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, intractable, without status epilepticus (HCC) (Primary Dx) Start: 01-04-2022 End: 01-04-2022 Telemedicine consultation with patient Otoniel Ocampo MD, PhD Work Phone: [facility] Start: 12-29-2021 ambulatory Cari funez PA-C Work Phone: Internal Medicine [facility] [place] Start: 11-12-2021 ambulatory Otoniel burns MD, PhD Work Phone: [facility] Start: 11-12-2021 Follow-up encounter Otoniel wayne MD, PhD Work Phone: Neurology Comment on above: Follow up Start: 10-07-2021 Telephone encounter Otoniel wayne MD, PhD Work Phone: Neurology Comment on above: Pharmacist calling w /question re: Medication Start: 10-06-2021 End: 10-06-2021 ambulatory Otoniel Ocampo MD, PhD Work Phone: Neurology Comment on above: 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, intractable, without status epilepticus (HCC) Start: 10-06-2021 End: 10-06-2021 Telemedicine consultation with patient Otoniel Ocampo MD, PhD Work Phone: [facility] Start: 10-06-2021 Telephone encounter Otoniel wayne MD, PhD Work Phone: Neurology Comment on above: Patient Question Start: 09-28-2021 ambulatory Otoniel burns MD, PhD Work Phone: Neurology Comment on above: Vimpat Start: 09-27-2021 Refill Otoniel burns MD, PhD Work Phone: Neurology Comment on above: Refill Request Seizures Start: 09-23-2021 E-mail encounter fro m caregiver Leona Tim MD Work Phone: [facility] Start: 09-23-2021 Patient encounter procedure Leona Tim MD Work Phone: [facility] Provider OB Comment on above: [facility] Start: 09-23-2021 Telephone encounter Otoniel wayne MD, PhD Work Phone: Neurology Comment on above: Seizures Start: 09-08-2021 Refill Otoniel burns MD, PhD Work Phone: Neurology Start: 09-06-2021 Telephone encounter Otoniel wayne MD, PhD Work Phone: Neurology Comment on above: Medication concern ( new medication) Seizures Start: 09-01-2021 Telephone encounter Otoniel wayne MD, PhD Work Phone: Neurology Comment on above: Orders (Liver Test) Start: 08-31-2021 ambulatory Otoniel burns MD, PhD Work Phone: Neurology Comment on above: Should I start my ne w medication? Start: 08-03-2021 E-mail encounter fro m caregiver [facility] Start: 08-03-2021 Patient encounter procedure [facility] Provider Neurology Comment on above: Appointment Needed Start: 05-11-2021 End: 05-11-2021 ambulatory Self Referred Facility:[facility] Start: 07-19-2017 Ambulatory Kamla Melchor [employer] [facility] Start: 05-01-2017 Ambulatory Shelley Bernabe [employer] [facility] Procedures Date Procedure Procedure Detail Performing Clinician Start: 08-06-2024 Screening digital br east tomosynthesis bi Neda Ha MD Work Phone: Start: 08-15-2023 Us breast uni real t temitope with image limited Areli Brenden CLINICAL INTERVIEWER.LOGISTICS MANAGEMENT SPECIALIST Work Phone: Start: 03-22-2023 Us breast uni real t temitope with image limited Areli [place] CLINICAL INTERVIEWER.LOGISTICS MANAGEMENT SPECIALIST Work Phone: Start: 03-17-2022 End: 03-17-2022 Screening mammography bi 2-view breast inc cad Bulk Order Provider Start: 12-28-2021 Adult depression scr eening assessment RONAL Zaldivar PA-C Work Phone: Start: 07-30-2021 Adult depression scr eening assessment Otoniel Ocampo MD, PhD Work Phone: Start: 10-05-2020 Mammography Otoniel rausch MD, PhD Work Phone: Start: 11-04-2019 Antibody screen Comment on above: Performed By: #### T [id number] ####[place] [phone] Start: 08-31-2018 Lipid 1996 panel - S tod or Plasma Areli Brenden CLINICAL INTERVIEWER.LOGISTICS MANAGEMENT SPECIALIST Work Phone: Plan of Treatment Date Care Activity Detail Author Start: 11-07-2025 End: 11-07-2025 Follow-up encounter 11/07/2025 10:00 AM EDT [facility] [address] [place] [address] Otoniel Ocampo MD, PhD [address] [place] [address] VV Follow Up- annual Partial idiopathic epilepsy with seizures of localized onset, intractable, without status epilepticus Neurology Comment on above: VV Follow Up- annual Partial idiopathic epilepsy with seizures of localized onset, intractable, without status epilepticus Start: 08-11-2025 End: 08-11-2025 Patient encounter procedure Mammogram Comment on above: Encounter for screen ing mammogram for breast cancer [Z12.31] Annual Start: 08-06-2025 Screening for malign ant neoplasm of breast Mammogram Screening [facility] Start: 02-03-2025 Influenza vaccination Influenz a Vaccine (Season Ended) [facility] Start: 11-01-2024 End: 01-31-2025 25-hydroxyvitamin D3 [Mass/volume] in Serum or Plasma VITAMIN D 25 HYDROXY Lab Routine Partial idiopathic epilepsy with seizures of localized onset, intractable, without status epilepticus (HCC) Expected: 11/01/2024, Expires: 01/31/2025 [facility] Comment on above: Expected: 11/01/2024 , Expires: 01/31/2025 Start: 11-01-2024 End: 01-31-2025 Calcitriol [Mass/volume] in Serum or Plasma VITAMIN D1 25-DIHYDR Lab Routine Partial idiopathic epilepsy with seizures of localized onset, intractable, without status epilepticus (HCC) Expected: 11/01/2024, Expires: 01/31/2025 [facility] Comment on above: Expected: 11/01/2024 , Expires: 01/31/2025 Start: 11-01-2024 End: 01-31-2025 CBC panel - Blood by Automated count COMPLETE BLOOD COUNT Lab Routine Partial idiopathic epilepsy with seizures of localized onset, intractable, without status epilepticus (HCC) Expected: 11/01/2024, Expires: 01/31/2025 [facility] Comment on above: Expected: 11/01/2024 , Expires: 01/31/2025 Start: 11-01-2024 End: 01-31-2025 Comprehensive metabolic 2000 panel - Serum or Plasma COMPREHENSIVE METABOLIC PANEL Lab Routine Partial idiopathic epilepsy with seizures of localized onset, intractable, without status epilepticus (HCC) Expected: 11/01/2024, Expires: 01/31/2025 [facility] Comment on above: Expected: 11/01/2024 , Expires: 01/31/2025 Start: 11-01-2024 End: 01-31-2025 LACOSAMIDE LACOSAMIDE Lab Routine Partial idiopathic epilepsy with seizures of localized onset, intractable, without status epilepticus (HCC) Expected: 11/01/2024, Expires: 01/31/2025 [facility] Work Phone: Comment on above: Expected: 11/01/2024 , Expires: 01/31/2025 Start: 11-01-2024 End: 01-31-2025 Zonisamide [Mass/volume] in Serum or Plasma ZONISAMIDE Lab Routine Partial idiopathic epilepsy with seizures of localized onset, intractable, without status epilepticus (HCC) Expected: 11/01/2024, Expires: 01/31/2025 [facility] Comment on above: Expected: 11/01/2024 , Expires: 01/31/2025 Start: 11-01-2024 End: 11-01-2024 Follow-up encounter 11/01/2024 9:40 AM EDT [facility] [address] [place] [address] Otoniel Ocampo MD, PhD [address] [facility] [place] [address] VV Follow Up-Partial idiopathic epilepsy with seizures of localized onset, intractable, without status epilepticus Neurology Comment on above: VV Follow Up-Partial idiopathic epilepsy with seizures of localized onset, intractable, without status epilepticus Start: 09-01-2024 Diabetes Screening Diabetes Screenin g [facility] Start: 08-06-2024 End: 08-06-2024 Patient encounter procedure 08/06/2024 8:40 AM EST Office Visit OB/Gynecology [address] [address] Neda Jerome MD [address] [place] [address] MAMMO W STEFANIE / ANNUAL OB/Gynecology Comment on above: MAMMO W STEFANIE / ANNUA L Start: 08-06-2024 End: 08-06-2024 Patient encounter procedure Mammogram Comment on above: MAMMO W STEFANIE / ANNUA L Start: 03-22-2024 Mammography Mammogram Screening [facility] Start: 03-22-2024 Screening for malign ant neoplasm of breast Mammogram Screening [facility] Start: 02-14-2024 HPV TESTING HPV TESTING [facility] Start: 02-14-2024 PAP TESTING PAP TESTING [facility] Start: 02-14-2024 Screening for malign ant neoplasm of cervix [facility] Start: 02-04-2024 Covid-19 Vaccine () Covid-19 Vaccine () [facility] Start: 02-04-2024 Influenza vaccination [facility] Start: 09-01-2023 Lipid 1996 panel - S tod or Plasma Lipid Screening [facility] Start: 09-01-2023 Lipid panel Lipid Screening [facility] Start: 06-05-2023 Behavioral Health Screening Behavioral Health Screening [facility] Start: 06-05-2023 Depression Assessment Depression Ass essment [facility] Start: 03-17-2023 Mammography [facility] Start: 02-03-2023 Covid-19 Vaccine () Covid-19 Vaccine () [facility] Start: 02-03-2023 Influenza vaccination [facility] Start: 2023 Cologuard (FIT-DNA) Cologuard (FIT-D NA) [facility] Start: 2023 Colonoscopy Colonoscopy [facility] Start: 2023 Colorectal Cancer Screening Colorectal Cancer Screening [facility] Start: [address] COLONOGRAPHY [facility] Start: 2023 Fecal Occult Blood Fecal Occult Bloo d [facility] Start: 2023 Screening for malign ant neoplasm of colon [facility] Start: 2023 SIGMOIDOSCOPY SIGMOIDOSCOPY [facility] Start: 12-28-2022 Adult depression screening assessment DEPRESSION SCREENING [facility] Start: 12-16-2022 End: 02-15-2023 10-Hydroxycarbazepine [Mass/volume] in Serum or Plasma OXCARBAZEPINE BLD Lab Routine Partial idiopathic epilepsy with seizures of localized onset, intractable, without status epilepticus (HCC) Expected: 12/16/2022, Expires: 02/15/2023 [facility] Work Phone: Comment on above: Expected: 12/16/2022 , Expires: 02/15/2023 Start: 12-16-2022 End: 02-15-2023 CBC panel - Blood by Automated count CBC Lab Routine Partial idiopathic epilepsy with seizures of localized onset, intractable, without status epilepticus (HCC) Expected: 12/16/2022, Expires: 02/15/2023 [facility] Work Phone: Comment on above: Expected: 12/16/2022 , Expires: 02/15/2023 Start: 12-16-2022 End: 02-15-2023 Comprehensive metabolic 2000 panel - Serum or Plasma COMP METABOLIC PANEL Lab Routine Partial idiopathic epilepsy with seizures of localized onset, intractable, without status epilepticus (HCC) Expected: 12/16/2022, Expires: 02/15/2023 [facility] Work Phone: Comment on above: Expected: 12/16/2022 , Expires: 02/15/2023 Start: 12-16-2022 End: 02-15-2023 Zonisamide [Mass/volume] in Serum or Plasma ZONISAMIDE Lab Routine Partial idiopathic epilepsy with seizures of localized onset, intractable, without status epilepticus (HCC) Expected: 12/16/2022, Expires: 02/15/2023 [facility] Work Phone: Comment on above: Expected: 12/16/2022 , Expires: 02/15/2023 Start: 07-30-2022 Adult depression screening assessment DEPRESSION SCREENING [facility] Start: 06-05-2022 [facility]MENT [facility] Start: 02-03-2022 Influenza vaccination [facility] Start: 10-05-2021 Mammography MAMMOGRAM [facility] Start: 06-05-2021 DEPRESSION ASSESSMENT [facility] Start: 02-03-2021 Influenza vaccination INFLUENZA (#1) [facility] Start: 1997 Hepatitis B Vaccine (1 of 3 - 19+ 3-dose series) Hepatitis B Vaccine (1 of 3 - 19+ 3-dose series) [facility] Start: 1997 Urine microalbumin profile [facility] Start: 01-08-1996 Anxiety Screening Anxiety Screening [facility] Start: 01-08-1996 Depression Screening Depression Scre ening [facility] Start: 01-08-1996 HEPATITIS C SCREENING HEPATITIS C SC [facility] Start: 01-08-1996 Hepatitis C screening Hepatitis C Sc [facility] Start: 01-08-1996 HIV SCREENING HIV SCREENING [facility] Start: 01-08-1996 HIV screening HIV Screening [facility] Start: 1983 COVID-19 VACCINE (#1) COVID-19 VACCI NE (#1) [facility] Start: 1983 COVID-19 VACCINE (1) COVID-19 VACCIN E (1) [facility] Start: 1978 COVID-19 VACCINE (#1) COVID-19 VACCI NE (#1) [facility] Start: 1978 HEPATITIS B (1 of 3 - 3-dose series) HEPATITIS B (1 of 3 - 3-dose series) [facility] Start: 1978 Hepatitis B Vaccine (1 of 3 - 3-dose series) Hepatitis B Vaccine (1 of 3 - 3-dose series) [facility] End: 08-31-2024 DBT Breast - bilateral screening JERMAINE SCREENING W STEFANIE Radiology Routine Encounter for screening mammogram for breast cancer 1 Occurrences starting 08/02/2023 until 08/31/2024 [facility] Work Phone: Comment on above: 1 Occurrences starti ng 08/02/2023 until 08/31/2024 End: 09-05-2025 DBT Breast - bilateral screening JERMAINE SCREENING W STEFANIE Radiology Routine Encounter for screening mammogram for breast cancer 1 Occurrences starting 08/06/2024 until 09/05/2025 [facility] Work Phone: Comment on above: 1 Occurrences starti ng 08/06/2024 until 09/05/2025 End: 03-25-2024 JERMAINE DIAGNOSTIC BILATERAL JERMAINE DIAGNOSTIC BILATERAL Radiology Routine Breast lump on left side at 1 o'clock position 1 Occurrences starting 02/24/2023 until 03/25/2024 [facility] Work Phone: Comment on above: 1 Occurrences starti ng 02/24/2023 until 03/25/2024 End: 05-05-2023 JERMAINE SCREENING W STEFANIE JERMAINE SCREENING W STEFANIE Radiology Routine Encounter for screening mammogram for breast cancer 1 Occurrences starting 04/05/2022 until 05/05/2023 [facility] Work Phone: Comment on above: 1 Occurrences starti ng 04/05/2022 until 05/05/2023 End: 08-06-2025 Screening colonoscopy COLONOSCOPY SCREENING Endoscopy Routine Screen for colon cancer 1 Occurrences starting 08/06/2024 until 08/06/2025 [facility] Comment on above: 1 Occurrences starti ng 08/06/2024 until 08/06/2025 End: 01-28-2023 Screening mammography bi 2-view breast inc cad JERMAINE SCREENING Radiology Routine Encounter for screening mammogram for breast cancer 1 Occurrences starting 12/29/2021 until 01/28/2023 [facility] Work Phone: Comment on above: 1 Occurrences starti ng 12/29/2021 until 01/28/2023 End: 03-25-2024 US BREAST LTD LEFT US BREAST LTD LEFT Radiology Routine Breast lump on left side at 1 o'clock position 1 Occurrences starting 02/24/2023 until 03/25/2024 [facility] Work Phone: Comment on above: 1 Occurrences starti ng 02/24/2023 until 03/25/2024 [facility] Immunizations Immunization Date Immunization Notes Care Provider Fa lily 03-18-2020 influenza, injectabl e, quadrivalent, contains preservative Otoniel Ocampo MD, PhD Work Phone: [facility] Work Phone: 03-18-2020 influenza virus vaccine, unspecified formulation Areli Wilcox CLINICAL INTERVIEWERAugieLOGISTICS MANAGEMENT SPECIALIST Work Phone: [facility] 03-27-2018 influenza virus vaccine, unspecified formulation Otoniel Ocampo MD, PhD Work Phone: [facility] Payers Date Payer Category Payer Private Health Insurance [facility] [employer] [id number] 2021-Present [phone] [address] [place] [address] HMO [id number] 2021 Private Health Insurance [id number] 2021 Unknown [id number] 2021 Self-pay [id number] Unknown Unknown [employer] [facility] [id number] Unknown [facility] [id number] Unknown [id number] Social History Date Type Detail Facility Start: 06-18-2011 End: 04-05-2022 Tobacco smoking status NHIS Never smoked tobacco [facility] Start: 01-28-2021 End: 08-06-2024 Alcohol intake Current non-drinker of alcohol (finding) [facility] Start: 1980 Sex Assigned At Female [facility] Start: 08-20-2021 End: 03-17-2022 Exposure to SARS-CoV-2 (event) Not sure [facility] Start: 06-18-2011 End: 04-05-2022 Tobacco use and exposure Smokeless tobacco non-user [facility] Start: 04-05-2022 End: 12-16-2022 History of Social function [facility] Start: 04-05-2022 End: 12-16-2022 Tobacco use panel [facility] Adult Depression Screening Assessment 0 [facility] Start: 08-26-2021 Gender identity Identifies as female gender (finding) [facility] Clinical Notes 07-25-2008 to 11-01-2024 Otoniel Ocampo MD, PhD - 11/01/2024 9:35 AM EDTTelephone Encounter - Emeka Meng PA-C - 09/06/2024 11:58 AM EDTTelephone Encounter - Emeka Meng PA-C - 09/06/2024 11:58 AM EDT Note Date & Type Note Facility 11-01-2024 Note HNO ID: [id number] Author: OTONIEL OCAMPO MD, PhD Service: ? Author Type: Physician Type: Progress Notes Filed: 11/01/2024 09:51 Note Text: [facility] Patient Name: Elmo Montoya Date of : 1980 ESTABLISHED EPILEPSY CLINIC NOTE 11/01/2024 9:40 AM Reason for Visit: Follow Up and Epilepsy Clinical Summary: Ms. Montoya is a 44 year old right-handed female seen in [facility]. We had a visit using: Troppin I received consent from the patient to perform the visit using this platform. I have communicated my name and active licensure. The patient's identity and physical location were verified at the time of this visit. Either the patient or their legal employee relations representative has been informed of the risks and benefit of - and alternatives to - treatment through a remote evaluation and consents to proceed with the evaluation remotely. There is no one accompanying the patient during today's visit. Classification Summary HISTORY OF PRESENT ILLNESS Handedness: right-handed Age of onset: Seizure History and Evolution History of seizures that began after delivery; post- which initially was attributable to pre-eclampsia but recurred. Seizures. Only at night out of sleep. Usually seem around menstrual period and only out of sleep by her report. Last seizure was perhaps about a year ago. She was originally on dilantin- did okay but attempted wean and was not successful bu tdid well. She was also trialed on lamotrigine and had throat swelling and allergic reaction. Was also trial on topamax, switched to topamax to vimpat (not sure why she made the change). Vimpat 150 mg bid currently. Taken this for several years. She has been compliant with treatment. Last two weeks she had increase her seizures. Attributed herself that she started on hormonal treatment for abnormal uterine bleeding. She felt off on it and felt this contributed to her most recent surgery and will having surgery for a fibroid. Interval Seizure History 44 year old woman seen in routine follow up. No problems. No seizures, no problems Doing okay with the medicine. Refills reviewed and up to date Needs to up to date. No mood issues No sleep issues Taking care of daughter's dog ([place]) CURRENT OUTPATIENT ANTISEIZURE MEDICATIONS (as of the start of the encounter) lacosamide (VIMPAT) 200 mg Take 1 tablet by mouth two times a day for 180 days. zonisamide (ZONEGRAN) 100 mg capsule Take 2 capsules by mouth every morning AND 3 capsules daily at bedtime. Prior Anti-seizure Therapies: Trial Adequacy: Max Daily Dose Achieved: Side Effects: Effectiveness: Comments: Gabapentin Lacosamide Topiramate Zonisamide Comorbidities: Episode Description: SEIZURE TYPE 1: Generalized motor Aura: no Description: No warning with the events. Seizures appear to be generalized seizure (generalized tonic clonic). Loss of awareness: Duration: Frequency: Last occurred: yes less than a minute SEIZURE TYPE 2: dialeptic Aura: no Description: During the day, she has had episodes on occasion where she will zone out for 30 seconds. She will also get some hand twitching when this happens. She has the episodes where she will pick. These can happen and she has no warning or recognition after this. No residual effects after these episodes. Loss of awareness: Duration: Frequency: Last occurred: yes less than a minute Patient Entered Data: EPILEPSY SCORE 12/28/2021 10:19 PM 07/30/2021 8:01 PM 07/30/2021 7:56 PM First answer obtained - 03/21/2019 8:09 AM PHQ-9 SCORE 0 [None-Minimal Depression] 0 [None-Minimal Depression] - - CAMILO 2 SCORE 0 [Negative Anxiety Screen] 0 [Negative Anxiety Screen] - - CAMILO 7 SCORE - - - - QOLIE-10 SCORE (0=worst; 100=best QoL - higher scores represent better function) 11 10 - - LSSS SCORE (0- no seizures 100- most severe possible seizures) - - - - C-SSRS SCREEN - - - - On average, how many hours of sleep do you get in a 24-hour period? - 8 - - PROMIS Sleep Disturbance T-SCORE - - 32 [within normal limits] 44 [within normal limits] Have you been diagnosed with Sleep Apnea? - No - - Seizure risk factors: Brain Tumor No POOL TABLE MECHANIC Infections No Developmental Delay No Family history of seizures No Febrile Seizure No Complications No Stroke No Traumatic Brain Injury No Previous Epilepsy Evaluations MRI Findings: 03/2019 IMPRESSION: Normal MR appearance of the brain. No distinct epileptogenic structural abnormality identified. Advanced degenerative changes right TMJ. EEG Findings: 03/29/2019 Classification Normal (Awake, Drowsy, 10-20 Scalp Electrodes, Anterior temporal electrodes) Impression This EEG is within normal limits. Other caregivers: Primary Care Provider: No primary care provider on file. Current Outpatient Medications Medication Si (more content not included)... [facility] 11-01-2024 History of Presen t illness Narrative [facility] Patient Name: Elmo Montoya Date of : 1980 ESTABLISHED EPILEPSY CLINIC NOTE 11/01/2024 9:40 AM Reason for Visit: Follow Up and Epilepsy Clinical Summary: Ms. Montoya is a 44 year old right-handed female seen in [facility]. We had a visit using: Troppin I received consent from the patient to perform the visit using this platform. I have communicated my name and active licensure. The patient's identity and physical location were verified at the time of this visit. Either the patient or their legal employee relations representative has been informed of the risks and benefit of - and alternatives to - treatment through a remote evaluation and consents to proceed with the evaluation remotely. There is no one accompanying the patient during today's visit. Classification Summary HISTORY OF PRESENT ILLNESS Handedness: right-handed Age of onset: Seizure History and Evolution History of seizures that began after delivery; post- which initially was attributable to pre-eclampsia but recurred. Seizures. Only at night out of sleep. Usually seem around menstrual period and only out of sleep by her report. Last seizure was perhaps about a year ago. She was originally on dilantin- did okay but attempted wean and was not successful bu tdid well. She was also trialed on lamotrigine and had throat swelling and allergic reaction. Was also trial on topamax, switched to topamax to vimpat (not sure why she made the change). Vimpat 150 mg bid currently. Taken this for several years. She has been compliant with treatment. Last two weeks she had increase her seizures. Attributed herself that she started on hormonal treatment for abnormal uterine bleeding. She felt off on it and felt this contributed to her most recent surgery and will having surgery for a fibroid. Interval Seizure History 44 year old woman seen in routine follow up. No problems. No seizures, no problems Doing okay with the medicine. Refills reviewed and up to date Needs to up to date. No mood issues No sleep issues Taking care of daughter's dog ([place]) CURRENT OUTPATIENT ANTISEIZURE MEDICATIONS (as of the start of the encounter) lacosamide (VIMPAT) 200 mg Take 1 tablet by mouth two times a day for 180 days. zonisamide (ZONEGRAN) 100 mg capsule Take 2 capsules by mouth every morning AND 3 capsules daily at bedtime. Prior Anti-seizure Therapies: Trial Adequacy: Max Daily Dose Achieved: Side Effects: Effectiveness: Comments: Gabapentin Lacosamide Topiramate Zonisamide Comorbidities: Episode Description: SEIZURE TYPE 1: Generalized motor Aura: no Description: No warning with the events. Seizures appear to be generalized seizure (generalized tonic clonic). Loss of awareness: Duration: Frequency: Last occurred: yes less than a minute SEIZURE TYPE 2: dialeptic Aura: no Description: During the day, she has had episodes on occasion where she will zone out for 30 seconds. She will also get some hand twitching when this happens. She has the episodes where she will pick. These can happen and she has no warning or recognition after this. No residual effects after these episodes. Loss of awareness: Duration: Frequency: Last occurred: yes less than a minute Patient Entered Data: EPILEPSY SCORE 12/28/2021 10:19 PM 07/30/2021 8:01 PM 07/30/2021 7:56 PM First answer obtained - 03/21/2019 8:09 AM PHQ-9 SCORE 0 [None-Minimal Depression] 0 [None-Minimal Depression] - - CAMILO 2 SCORE 0 [Negative Anxiety Screen] 0 [Negative Anxiety Screen] - - CAMILO 7 SCORE - - - - QOLIE-10 SCORE (0=worst; 100=best QoL - higher scores represent better function) 11 10 - - LSSS SCORE (0- no seizures 100- most severe possible seizures) - - - - C-SSRS SCREEN - - - - On average, how many hours of sleep do you get in a 24-hour period? - 8 - - PROMIS Sleep Disturbance T-SCORE - - 32 [within normal limits] 44 [within normal limits] Have you been diagnosed with Sleep Apnea? - No - - Seizure risk factors: Brain Tumor No POOL TABLE MECHANIC Infections No Developmental Delay No Family history of seizures No Febrile Seizure No Complications No Stroke No Traumatic Brain Injury No Previous Epilepsy Evaluations MRI Findings: 03/2019 IMPRESSION: Normal MR appearance of the brain. No distinct epileptogenic structural abnormality identified. Advanced degenerative changes right TMJ. EEG Findings: 03/29/2019 Classification Normal (Awake, Drowsy, 10-20 Scalp Electrodes, Anterior temporal electrodes) Impression This EEG is within normal limits. Other caregivers: Primary Care Provider: No primary care provider on file. Current Outpatient Medications Medication Sig zonisamide (ZONEGRAN) 100 mg capsule Take 2 capsules by mouth every morning AND 3 capsules daily at bedtime. lacosamide (VIMPAT) 200 mg Take 1 tablet by mouth two times a day for 180 days. No current facility-administered medications for this visit. ALLERGIES Allergen Reactions Lamictal [Lamotrigi* Swelling PAST MEDICAL HISTORY Diagnosis Date Calculus of gallbladder with other cholecystitis, without mention of obstruction 10/18/2005 Localization-related (focal) (partial) epilepsy and epileptic syndromes with simple partial seizures, without mention of intractable epilepsy Workup for epileptic cause neg Temporomandibular joint disorders, unspecified PAST SURGICAL HISTORY Procedure Laterality Date COLONOSCOPY W/BIOPSY SINGLE/MULTIPLE 08-28-08 HYSTEROSCOPY 03/28/2019 HYSTEROSCOPY, WITH POLYPECTOMY LAPAROSCOPY W TOTAL HYSTERECTOMY UTERUS 250 GM/< 11/2019 [facility], b/l salpingectomy LAPS SURG CHOLECYSTECTOMY W/CHOLANGIOGRAPHY 10/06/05 OPTX NASOMAX CPLX FX LEFT II TYPE W/WIRG & FXJ 1995 FAMILY HISTORY Problem Relation Age of Onset other (PE) Father DVT Father Breast Cancer Maternal Grandmother Coronary Artery Disease Maternal Grandfather Hypertension Maternal Grandfather Lipids Maternal Grandfather Coronary Artery Disease Paternal Grandfather 82 [place] SOCIAL HISTORY: -Lives in [place], [place] -Patient lives alone? -Vocation: -Education: -Cigarette, alcohol, substance use: -Functional status: -Patient driving? Review of Systems All other systems reviewed and are negative. VITAL SIGNS: LMP 09/13/2019 General Examination: General Exam Neurological Exam Mental Status Alert, fully oriented, attentive, with normal cognition, memory, speech and affect. Cranial Nerves Extraocular movements normal. No nystagmus, no ptosis, and pupils equal. Face symmetrical. Tongue normal. 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 Stable on ASM currently. Epilepsy Classification Focal Epilepsy Seizure Classification Seizure Type A: Motor Seizure: Automotor (with LOC) -> Motor Seizure: Generalized Tonic-Clonic (with LOC) Doing well since increase in vimpat No seizures Interval Impression: 44 year old remains stable. Will continue ASM as ordered and needs up dated labs for anticonvulsant monitoring. No other neurologic or systemic issues. The patient's compliance with therapy has been: Excellent PLAN: Data reviewed as above including: electronic medical record Testing Ordered CBC CMP anticonvulsant level vitamin D Education Patient was given my clinic contact information. It is reasonable for the patient to continue driving based on good compliance with antiseizure medication and current seizure control. Medical Management Continue current medications. Prescriptions sent to pharmacy. zonisamide PDMP website checked and validated. All prescriptions have been APPROPRIATELY filled. No suspicious activity was identified. 11/01/2024 by Otoniel Ocampo MD, PhD The possibility of serious and adverse reactions were discussed in detail as well as proper use of medication. I discussed that not taking this medication as directed could worsen seizures and can be dangerous. I discussed the risks, benefits and alternatives of the medical plan with the patient. Questions were answered. The patient agreed with the plan as discussed. FOLLOW-UP: Return in about 1 year (around 11/01/2025). I spent a total of 20 minutes on the date of the service which included: preparing to see the patient [id number] patient care completing clinical documentation obtaining and/or reviewing separately obtained history performing a medically appropriate examination counseling and educating the patient/family/caregiver ordering medications, tests, or procedures independently interpreting results (not separately reported) Otoniel Ocampo MD, PhD cc: Primary Care Physician: No primary care provider on file. No primary provider on file. Referring: Patient: Ms. Elmo Montoya [id number] [id number] documented in this encounter [facility] 09-06-2024 Telephone encounter Note The following approved medication requests have been transmitted electronically. Requested Prescriptions Signed Prescriptions Disp Refills lacosamide (VIMPAT) 200 mg 180 tablet 1 Sig: Take 1 tablet by mouth two times a day for 180 days. Authorizing Provider: EMEKA MENG PA-C [facility] 09-06-2024 Miscellaneous Notes The following approved medication requests have been transmitted electronically. Requested Prescriptions Signed Prescriptions Disp Refills lacosamide (VIMPAT) 200 mg 180 tablet 1 Sig: Take 1 tablet by mouth two times a day for 180 days. Authorizing Provider: EMEKA MENG PA-C Pt will be out of meds over the weekend, needs Lacosamide 200mg sent to [facility] as a 90 day supply, she verified they it in stock. Pt very upset, using profanity and calling staff inappropriate names. Miriam Mattson, RN Patient checking status on a call back. [phone] (home) script is wrong per patient General call : Full name of person calling: Elmo Montoya Relationship to patient: self Phone # : [phone] Reason for call: patient called and wants to speak with the office about a seizure medication. Patient did not know the name of the medication. Patient of Dr. Ocampo documented in this encounter [facility] 09-06-2024 Telephone encounter Note Pt will be out of meds over the weekend, needs Lacosamide 200mg sent to [facility] as a 90 day supply, she verified they it in stock. Pt very upset, using profanity and calling staff inappropriate names. Miriam Mattson RN [facility] 09-06-2024 Telephone encounter Note Patient checking status on a call back. [phone] (home) script is wrong per patient [facility] 09-06-2024 Telephone encounter Note General call : Full name of person calling: Elmo Montoya Relationship to patient: self Phone # : [phone] Reason for call: patient called and wants to speak with the office about a seizure medication. Patient did not know the name of the medication. Patient of Dr. Ocampo [facility] 09-02-2024 Telephone encounter Note The following approved medication requests have been transmitted electronically. Requested Prescriptions Signed Prescriptions Disp Refills lacosamide (VIMPAT) 200 mg 60 tablet 5 Sig: Take 1 tablet by mouth two times a day for 180 days. Authorizing Provider: EMEKA MENG PA-C [facility] 09-02-2024 Miscellaneous Notes The following approved medication requests have been transmitted electronically. Requested Prescriptions Signed Prescriptions Disp Refills lacosamide (VIMPAT) 200 mg 60 tablet 5 Sig: Take 1 tablet by mouth two times a day for 180 days. Authorizing Provider: EMEKA MENG PA-C Prescription Refill: Requested by: patient Please E-Scribe Caller Contact Number: my chart Pharmacy Name: [facility] Pharmacy Number: [id number] Generic/ brand: generic 30 or 90 day supply requested: 90 Last appointment: 10/12/23 Next Appointment: 11/01/[address] Terrence Montoya [id number] [facility] [id number] documented in this encounter [facility] 09-02-2024 Telephone encounter Note Prescription Refill: Requested by: patient Please E-Scribe Caller Contact Number: my chart Pharmacy Name: [facility] Pharmacy Number: [id number] Generic/ brand: generic 30 or 90 day supply requested: 90 Last appointment: 10/12/23 Next Appointment: 11/01/[address] Terrence Montoya [id number] [facility] [address] [facility] 08-06-2024 Instructions Neda Jerome MD - 08/06/2024 8:18 AM EST COLONOSCOPY BOWEL PREPARATION INSTRUCTIONS MiraLAX Your doctor has scheduled you for a colonoscopy. To have a successful colonoscopy, you must have a clean colon, that is empty. A clean colon allows your doctor to see the entire colon & diagnose issues like polyps or cancer. For doctors, a clean colon is like driving on a mariya day; a dirty colon like driving in a storm. It is very important that you follow these instructions exactly, or your colonoscopy may not be as effective, could be canceled, and you may need to do the bowel prep and colonoscopy again. TRANSPORTATION REQUIREMENTS You are receiving IV sedation. For your safety, a responsible adult escort must accompany you to and from your procedure: Your adult escort MUST be present with you at check-in for your colonoscopy. Your adult escort MUST remain in the endoscopy area until you are discharged. Your adult escort MUST transport you home once you are discharged. You are NOT allowed to operate any form of transportation (i.e. drive a car, bicycle, etc) or leave the Endoscopy Center ALONE. It is not safe to do so. If you cannot meet these requirements, your procedure will be canceled. MEDICATION REQUIREMENTS For your safety, certain medications will need to be stopped or adjusted before you can have your procedure: BLOOD THINNERS: If you take blood thinners, such as Coumadin (warfarin), Plavix (clopidogrel), Ticlid (ticlopidine hydrochloride), Agrylin (anagrelide), Xarelto (Rivaroxaban), Pradaxa (Dabigatran), Eliquis (Apixaban), or Effient (Prasugrel), contact the physician who is prescribing these medications at least 2 weeks prior to your procedure to discuss any necessary adjustments. DIABETES: If you take medications for diabetes, your dosage may need to be adjusted. If you are being treated for diabetes with insulin, diabetic pills, or other injectable medications do not take your REGULAR dose after midnight on the day of your procedure. If you are taking any other types of insulin such as Lantus, Humalog, NPH (long-acting insulin), or 70/30 insulin, take half your normal dose the day before your procedure. DIABETES/WEIGHT MANAGEMENT: If you take medications for weight-loss, your dosage may need to be adjusted Contact the doctor who prescribes this medication for further instructions. If you take medications for weight-loss like semaglutide (Ozempic, Wegovy, Rybelsus), dulaglutide (Trulicity), liraglutide (Victoza, Saxenda), exenatide (Byetta, Bydureon), or lixisenatide (Adylyxin), stop your medication 1 week prior to your procedure. If you take medications like canagliflozin (Invokana), dapagliflozin (Farxiga, Forxiga), empagliflozin (Jardiance), stop your medication 3 days prior to your procedure. If you take ertugliflozin (Steglatro) stop your medication 4 days prior to your procedure. IRON: If you take iron pills, STOP them 1 week BEFORE your procedure, may resume after. OTHER MEDS: May take all other medications (including aspirin, antibiotics, water pills / diuretics like Lasix or Metolozone, blood pressure meds, etc.) at their usual scheduled time with water. DIET REQUIREMENTS The day before your colonoscopy, you may have a clear liquid diet (see below). The day of your colonoscopy, you may continue a clear liquid diet until 3 hours before your colonoscopy. Within 3 hours of your colonoscopy, take only any medications (as above) with a sip of water. Clear Liquid Diet Broth (chicken, beef or vegetable broth or bullion. Just the broth, no solids). Water Coffee or Tea (NO milk or creamer), but sugar and sugar substitutes are allowed. Clear liquids including clear, yellow, green, blue (NO red, NO orange, NO purple) Sodas / soft drinks; Gatorade or other sports drinks Fruit juice (strained; no-pulp); Juan Daniel-Aid or flavored drinks Plain Jell-O or other gelatins Popsicles or hard candy Bowel prep can work differently from person to person. Some people's bowels move slowly and they may need different instructions. Please see your doctor in office or virtually for personalized bowel prep instructions if you have: BOWEL PREPARATION (MIRALAX/GATORADE) Split Dosing Bowel Prep: This means drinking your bowel prep in two doses. Split dosing helps clean your colon better and makes it less likely that your procedure will be canceled. You will need to purchase the following (no prescriptions are needed): 64 ounces Gatorade, Propel, Crystal Lite or other noncarbonated clear liquid sports drink (NOT red, orange, or purple). Diabetic patients buy sugar-free, e.g. Gatorade G2 4 Dulcolax laxative tablets containing 5mg bisacodyl each (do not buy the stool softener) 8.3 oz MiraLAX (238g) powder or generic polyethylene glycol 3350 (find in laxative aisle) The day before your colonoscopy mix 64 oz of the sports drink with 8.3 oz MiraLAX (238 g) in a pitcher. Stir or shake until MiraLAX completely dissolved. Chill if desired. On the evening before your colonoscopy: 5 PM take 4 Dulcolax laxative tablets with water by mouth. 6 PM drink the first half of the Gatorade/MiraLAX solution Drink one 8-ounce glass every 15 minutes. Six hours before your colonoscopy, drink the second half of the solution. Drink one 8-ounce glass every 15 minutes. You may continue a clear liquid diet until 3 hours before your colonoscopy. Bowel prep can work differently from person to person. Some people's bowels move slowly and they may need different instructions. Please see your doctor in office or virtually for personalized bowel prep instructions if you have: Medical condition that needs special accommodations Had a poor bowel prep results or failed bowel prep attempts in the past. Had difficulty with anesthesia during the procedure. FREQUENTLY ASKED QUESTIONS Q: What if I suffer from constipation? A: Recommend taking extra laxatives to resolve your constipation days prior to entering the bowel prep day. Q: What if have had prior poor preps results in past? A: Contact your physician as you will likely need additional bowel prep instructions. Q: What if I have motility issues like Parkinson's, MS (multiple sclerosis), wheelchair dependent, etc.? or on medications that slow colonic transit times (narcotics, gabapentin, anticholinergic medications etc.) A: Contact your physician as you will likely need extra time and additional laxatives to complete your bowel prep. Q: What if I cannot drink large volume of liquid? A: Start your prep 2-3 hours earlier to allow yourself more time to complete the entire prep. Q: What if I had bariatric surgery? Do I still have to complete the entire prep? A: Yes, gastric bypass surgery involves the stomach & small bowel. You may need to drink smaller amounts, slower (may need more time to complete your bowel prep). Gastric bypass does not alter the length of your colon so you will need to complete the entire bowel prep, it may just take longer time to complete it. Q: What if I am on dialysis? A: Please consult your director of restaurant operations prior to scheduling to get instructions pertinent to you. In general, dialysis patients take the Golytely bowel prep and have the procedure same day of their dialysis (colonoscopy in AM, dialysis in PM). Q: How do I know if something is considered as clear liquid diet? A: If you can pour it in a glass and you can see through it, it is considered clear liquid Q: Can I eat nuts, seeds, beans, popcorn, dried fruits, vegetables & fruits that have skin peel? A: No, you will need to not eat these items starting 3 days prior to procedure. Q: Can I take Uber/Lyft/taxi/bus home? A: An adult MUST be present with you at check-in for your colonoscopy and remain in the endoscopy area until you are discharged. You can take Uber home only if this adult escort is with you at check in, remain in the endoscopy area until you are discharged, and takes the Uber with you to home. Q: Can I sleep it off here and drive myself home? A: No, you must have an adult with you at time of procedure check in, remain in the endoscopy center during your procedure, and drive you home. You cannot drive a vehicle after your procedure the rest of the day. Q: What if I can't finish my bowel prep? A: If you cannot complete your entire bowel prep, there is high likelihood that your colonoscopy will need to be rescheduled due to inadequate prep quality. documented in this encounter [facility] 08-06-2024 Note HNO ID: [id number] Author: NEDA JEROME MD Service: ? Author Type: Physician Type: Progress Notes Filed: 08/06/2024 08:41 Note Text: Glass Selector offered: Patient declinesAugie Ross is a 44 year old who presents for an annual gynecologic exam without complaints. Working at [employer]. 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 Comments: Sexual Activity: Yes; Male; vasectomy Contraception: Surgical PAST MEDICAL HISTORY Diagnosis Date Calculus of gallbladder with other cholecystitis, without mention of obstruction 10/18/2005 Localization-related (focal) (partial) epilepsy and epileptic syndromes with simple partial seizures, without mention of intractable epilepsy Workup for epileptic cause neg Temporomandibular joint disorders, unspecified PAST SURGICAL HISTORY Procedure Laterality Date COLONOSCOPY W/BIOPSY SINGLE/MULTIPLE 08-28-08 HYSTEROSCOPY 03/28/2019 HYSTEROSCOPY, WITH POLYPECTOMY LAPAROSCOPY W TOTAL HYSTERECTOMY UTERUS 250 GM/< 11/2019 [facility], b/l salpingectomy LAPS SURG CHOLECYSTECTOMY W/CHOLANGIOGRAPHY 10/06/05 OPTX NASOMAX CPLX FX LEFT II TYPE W/WIRG AND FXJ 1995 FAMILY HISTORY Problem Relation Age of Onset other (PE) Father DVT Father Breast Cancer Maternal Grandmother Coronary Artery Disease Maternal Grandfather Hypertension Maternal Grandfather Lipids Maternal Grandfather Coronary Artery Disease Paternal Grandfather 82 [place] SOCIAL HISTORY Social History Tobacco Use Smoking status: Never Smokeless tobacco: Never Vaping Use Vaping status: Never Used Substance Use Topics Alcohol use: No Drug use: No REVIEW OF SYSTEMS Abdomen: No abdominal pain, nausea, vomiting, diarrhea, or constipation. No bloating, early satiety, indigestion, or increased flatulence. Bladder: No dysuria, gross hematuria, urinary frequency, urinary urgency, or incontinence. Breast: No breast lumps, nipple d/c, overlying skin changes, redness or skin retraction. Allergies and current medication updated:Yes SENSITIVE EXAM: The sensitive examination was discussed with the Patient or Patient's Authorized Inter Com Installer. As applicable, any other physician, advance practice provider, medical student, or other health professional student that will be observing or involved in the sensitive examination for educational or training purposes was discussed with the Patient or Authorized Inter Com Installer. The Patient or Authorized Inter Com Installer has agreed to proceed with the sensitive examination. (Sensitive examination includes inspection and/or palpation of the breasts, pelvis, prostate and anorectal regions). EXAM: BP 158/98 Ht 5' 3 (1.60m) LMP 09/13/2019 GENERAL: pleasant, female in no apparent distress HEENT: Normocephalic, atraumatic, mucus membranes moist, and no lesions NECK: Supple, full range of motion, no adenopathy, and thyroid normal DERMATOLOGY: Normal, without lesions, non-icteric, and non-hirsute BREAST: soft, non-tender, symmetric, no dominant mass, normal nipple-areolar complex, no lymphadenopathy, and no nipple discharge CHEST: Normal inspiratory effort ABDOMEN: soft, non-tender, and no masses PELVIC: external genitalia normal, normal Bartholin's glands, urethra, [place]'s glands, no vulvar lesions, good vaginal support, physiologic discharge present, normal appearing perineal body and perianal region, cervix surgically absent BIMANUAL: no adnexal masses, non-tender, and uterus surgically absent RECTOVAGINAL: deferred. NEURO: alert and oriented x3,exam grossly non-focal EXTREMITIES: normal ASSESSMENT/PLAN: 1) Health maintenance: Mammogram up to date . Nutrition, exercise and routine health maintenance exams reviewed. Calcium/Vitamin D supplementation information provided. Colon cancer screening: colonoscopy ordered 2) Contraception: hysterectomy. Contraceptive options reviewed and information provided. 3) STD screening: Declined STD check. 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 Elmo is a 44 year old who presents for an annual gynecologic exam without complaints. Working at [employer]. 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: Sexual Activity: Yes; Male; vasectomy Contraception: Surgical PAST MEDICAL HISTORY Diagnosis Date Calculus of gallbladder with other cholecystitis, without mention of obstruction 10/18/2005 Localization-related (focal) (partial) epilepsy and epileptic syndromes with simple partial seizures, without mention of intractable epilepsy Workup for epileptic cause neg Temporomandibular joint disorders, unspecified PAST SURGICAL HISTORY Procedure Laterality Date COLONOSCOPY W/BIOPSY SINGLE/MULTIPLE 08-28-08 HYSTEROSCOPY 03/28/2019 HYSTEROSCOPY, WITH POLYPECTOMY LAPAROSCOPY W TOTAL HYSTERECTOMY UTERUS 250 GM/< 11/2019 [facility], b/l salpingectomy LAPS SURG CHOLECYSTECTOMY W/CHOLANGIOGRAPHY 10/06/05 OPTX NASOMAX CPLX FX LEFT II TYPE W/WIRG & FXJ 1995 FAMILY HISTORY Problem Relation Age of Onset other (PE) Father DVT Father Breast Cancer Maternal Grandmother Coronary Artery Disease Maternal Grandfather Hypertension Maternal Grandfather Lipids Maternal Grandfather Coronary Artery Disease Paternal Grandfather 82 [place] SOCIAL HISTORY Social History Tobacco Use Smoking status: Never Smokeless tobacco: Never Vaping Use Vaping status: Never Used Substance Use Topics Alcohol use: No Drug use: No REVIEW OF SYSTEMS Abdomen: No abdominal pain, nausea, vomiting, diarrhea, or constipation. No bloating, early satiety, indigestion, or increased flatulence. Bladder: No dysuria, gross hematuria, urinary frequency, urinary urgency, or incontinence. Breast: No breast lumps, nipple d/c, overlying skin changes, redness or skin retraction. Allergies and current medication updated:Yes SENSITIVE EXAM: The sensitive examination was discussed with the Patient or Patient's Authorized Inter Com Installer. As applicable, any other physician, advance practice provider, medical student, or other health professional student that will be observing or involved in the sensitive examination for educational or training purposes was discussed with the Patient or Authorized Inter Com Installer. The Patient or Authorized Inter Com Installer has agreed to proceed with the sensitive examination. (Sensitive examination includes inspection and/or palpation of the breasts, pelvis, prostate and anorectal regions). EXAM: BP 158/98 Ht 5' 3 (1.60m) LMP 09/13/2019 GENERAL: pleasant, female in no apparent distress HEENT: Normocephalic, atraumatic, mucus membranes moist, and no lesions NECK: Supple, full range of motion, no adenopathy, and thyroid normal DERMATOLOGY: Normal, without lesions, non-icteric, and non-hirsute BREAST: soft, non-tender, symmetric, no dominant mass, normal nipple-areolar complex, no lymphadenopathy, and no nipple discharge CHEST: Normal inspiratory effort ABDOMEN: soft, non-tender, and no masses PELVIC: external genitalia normal, normal Bartholin's glands, urethra, [place]'s glands, no vulvar lesions, good vaginal support, physiologic discharge present, normal appearing perineal body and perianal region, cervix surgically absent BIMANUAL: no adnexal masses, non-tender, and uterus surgically absent RECTOVAGINAL: deferred. NEURO: alert and oriented x3,exam grossly non-focal EXTREMITIES: normal ASSESSMENT/PLAN: 1) Health maintenance: Mammogram up to date . Nutrition, exercise and routine health maintenance exams reviewed. Calcium/Vitamin D supplementation information provided. Colon cancer screening: colonoscopy ordered 2) Contraception: hysterectomy. Contraceptive options reviewed and information provided. 3) STD screening: Declined STD check. 4) Follow up one year or sooner as needed Neda José MD documented in this encounter [facility] 08-06-2024 History of Presen t illness Narrative Radiology Service Progress Note PATIENT NAME: Elmo Montoya DATE OF SERVICE: August 06, 2024 TIME: 8:22 AM PATIENT IDENTITY VERIFICATION COMPLETED USING TWO (2) IDENTIFIERS: Name and Date of confirmed by patient verbally. FALL SCREENING: Has the patient had 2 falls in the last year or 1 fall with injury or currently using an Ambulatory Assistive Device (Walker, Cane, Wheelchair, Crutches, etc.)? No PATIENT GENDER DATA: Assigned female at . status: : No status: NO. PATIENT RELEVANT IMPLANT DATA REVIEWED: Not Applicable PATIENT PRESENTS WITH AN IMPLANTABLE OR ATTACHED MOTORCYCLE TECHNICIAN: No RADIOLOGY DEPARTMENT: Mammography PERIPHERAL IV DATA: Not applicable SIGNED BY: Chas Santiago August 06, 2024 8:22 AM documented in this encounter [facility] 08-06-2024 Note HNO ID: [id number] Author: GEO ZAMORA Mammo Tech Service: ? Author Type: Party Plan Sales Host/Hostess Type: Progress Notes Filed: 08/06/2024 08:23 Note Text: Radiology Service Progress Note PATIENT NAME: Elmo Montoya DATE OF SERVICE: August 06, 2024 TIME: 8:22 AM PATIENT IDENTITY VERIFICATION COMPLETED USING TWO (2) IDENTIFIERS: Name and Date of confirmed by patient verbally. FALL SCREENING: Has the patient had 2 falls in the last year or 1 fall with injury or currently using an Ambulatory Assistive Device (Walker, Cane, Wheelchair, Crutches, etc.)? No PATIENT GENDER DATA: Assigned female at . status: : No status: NO. PATIENT RELEVANT IMPLANT DATA REVIEWED: Not Applicable PATIENT PRESENTS WITH AN IMPLANTABLE OR ATTACHED MOTORCYCLE TECHNICIAN: No RADIOLOGY DEPARTMENT: Mammography PERIPHERAL IV DATA: Not applicable SIGNED BY: Geo Zamora [employer] August 06, 2024 8:22 AM [facility] 05-20-2024 Telephone encounter Note The following approved medication requests have been transmitted electronically. Requested Prescriptions Signed Prescriptions Disp Refills zonisamide (ZONEGRAN) 100 mg capsule 450 capsule 1 Sig: Take 2 capsules by mouth every morning AND 3 capsules daily at bedtime. Authorizing Provider: ISABEL MORALES PA-C [facility] 05-20-2024 Miscellaneous Notes The following approved medication requests have been transmitted electronically. Requested Prescriptions Signed Prescriptions Disp Refills zonisamide (ZONEGRAN) 100 mg capsule 450 capsule 1 Sig: Take 2 capsules by mouth every morning AND 3 capsules daily at bedtime. Authorizing Provider: ISABEL MORALES PA-C Prescription Refill: Requested by: patient Please E-Scribe Caller Contact Number: [phone] Pharmacy Name: [facility] Pharmacy Number: [phone] Generic/ brand: generic 30 or 90 day supply requested: 90 Last appointment: 11/01/2023 Next Appointment: 11/01/[address] Ocampo documented in this encounter [facility] 05-20-2024 Telephone encounter Note Prescription Refill: Requested by: patient Please E-Scribe Caller Contact Number: [phone] [facility]: [facility] Pharmacy Number: [phone] Generic/ brand: generic 30 or 90 day supply requested: 90 Last appointment: 11/01/2023 Next Appointment: 11/01/[address] Ocampo [facility] 03-11-2024 Telephone encounter Note The following approved medication requests have been transmitted electronically. Requested Prescriptions Signed Prescriptions Disp Refills lacosamide (VIMPAT) 200 mg 180 tablet 1 Sig: Take 1 tablet by mouth two times a day for 180 days. Authorizing Provider: DAJUAN FOWLER APRN.CNP [facility] 03-11-2024 Miscellaneous Notes The following approved medication requests have been transmitted electronically. Requested Prescriptions Signed Prescriptions Disp Refills lacosamide (VIMPAT) 200 mg 180 tablet 1 Sig: Take 1 tablet by mouth two times a day for 180 days. Authorizing Provider: DAJUAN FOWLER APRN.CNP Prescription Refill: PATIENT OUT OF MEDICATION Requested by: patient Please Call in Caller Contact Number: [phone] (home) [facility]acy Number: [phone] Generic/ brand: generic 30 or 90 day supply requested: 90 Last appointment: 11/01/23 Next Appointment: 11/01/[address] ocampo documented in this encounter [facility] 03-11-2024 Telephone encounter Note Prescription Refill: PATIENT OUT OF MEDICATION Requested by: patient Please Call in Caller Contact Number: [phone] (home) [facility]acy Number: [phone] Generic/ brand: generic 30 or 90 day supply requested: 90 Last appointment: 11/01/23 Next Appointment: 11/01/[address] ocampo [facility] 11-02-2023 History of Presen t illness Narrative [facility] Patient Name: Elmo Montoya Date of : 1980 ESTABLISHED EPILEPSY CLINIC NOTE 11/01/2023 2:40 PM Reason for Visit: Follow Up and Epilepsy Clinical Summary: Ms. Montoya is a 43 year old right-handed female seen in [facility]. We had a visit using: Troppin I received consent from the patient to perform the visit using this platform. I have communicated my name and active licensure. The patient's identity and physical location were verified at the time of this visit. Either the patient or their legal employee relations representative has been informed of the risks and benefit of - and alternatives to - treatment through a remote evaluation and consents to proceed with the evaluation remotely. There is no one accompanying the patient during today's visit. Classification Summary HISTORY OF PRESENT ILLNESS Handedness: right-handed Age of onset: Seizure History and Evolution History of seizures that began after delivery; post- which initially was attributable to pre-eclampsia but recurred. Seizures. Only at night out of sleep. Usually seem around menstrual period and only out of sleep by her report. Last seizure was perhaps about a year ago. She was originally on dilantin- did okay but attempted wean and was not successful bu tdid well. She was also trialed on lamotrigine and had throat swelling and allergic reaction. Was also trial on topamax, switched to topamax to vimpat (not sure why she made the change). Vimpat 150 mg bid currently. Taken this for several years. She has been compliant with treatment. Last two weeks she had increase her seizures. Attributed herself that she started on hormonal treatment for abnormal uterine bleeding. She felt off on it and felt this contributed to her most recent surgery and will having surgery for a fibroid.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 Relation Age of Onset Breast Cancer Maternal Grandmother Coronary Artery Disease Maternal Grandfather Hypertension Maternal Grandfather Lipids Maternal Grandfather Coronary Artery Disease Paternal Grandfather 82 [place] VITAL SIGNS: LMP 09/13/2019 Neurological Exam Mental Status Alert, fully oriented, attentive, with normal cognition, memory, speech and affect. Cranial Nerves Extraocular movements normal. No nystagmus, no ptosis, and pupils equal. Face symmetrical. Tongue normal. 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 Patient continues to hae seizures on medication without recent change, discussed she at risk of intractability medically and this was discussed. Epilepsy Classification Focal Epilepsy Seizure Classification Seizure Type A: Motor Seizure: Automotor (with LOC) -> Motor Seizure: Generalized Tonic-Clonic (with LOC) Doing well since increase in vimpat No seizures Interval Impression: Recurrent seizure. will try to see if we can get her back on vimpat as she did well continue zonisamide trial oxc in interim depending on exploration of vimpat options PLAN: Data reviewed as above including: electronic medical record Testing Ordered CBC CMP anticonvulsant level Education The following issues were discussed with the patient on this visit and written instructions provided as below- Seizure precautions and safety, seizure first aide, when to seek emergency care. Patient was advised to not drive until released by a physician. Patient was given my clinic contact information. Medical Management Continue current medications. Medication changes were discussed. start oxc as ordred check to see if options for lacosamide to resume. The possibility of serious and adverse reactions were discussed in detail as well as proper use of medication. I discussed that not taking this medication as directed could worsen seizures and can bedangerous. I discussed the risks, benefits and alternatives of the medical plan with the patient. Questions were answered. The patient agreed with the plan as discussed. FOLLOW-UP: Return in about 2 months (around 02/16/2023). I spent a total of 30 minutes on the date of the service which included: preparing to see the patient [id number] patient care completing clinical documentation obtaining and/or reviewing separately obtained history counseling and educating the patient/family/caregiver ordering medications, tests, or procedures independently interpreting results (not separately reported) Otoniel Ocampo MD, PhD cc: Primary Care Physician: Cari Zaldivar PA-C [id number] [facility] [id number] Referring: Patient: Ms. Elmo Montoya [address] [facility] [id number] documented in this encounterPro[facility]05-[facility]23 Miscellaneous Notes* Telephone Encounter - Yamil Koch LPN - 10/10/2022 2:35 PM EDT Spoke with pt relayed below message. Pt verbalized an understanding.. * Telephone Encounter - Jayden Waters - 10/10/2022 1:54 PM EDT Spoke with patient on the phone. She is asking why she is having 4 month follow ups now instead of [address] Ocampo? Please advise, thanks. documented in this encounterPro[facility]03-17-2023 Miscellaneous Notes* Telephone Encounter - Fern Gonzalez APRN.CNP - 08/19/2022 8:16 AM EDT Patient's request for medication is as follows: Requested Prescriptions Signed Prescriptions Disp Refills zonisamide (ZONEGRAN) 100 mg capsule 450 capsule 3 Sig: take 2 pills in the morning and 3 pills in the evening. Authorizing Provider: FERN GONZALEZ Approved the above prescription and sent electronically [facility] in [place], [place]. Fern Gonzalez APRN.LOGISTICS MANAGEMENT SPECIALIST documented in this encounterProtest[facility]03-03-2023 History of Present illness Narrative* Otoniel Ocampo MD, PhD - 08/05/2022 10:13 AM EST [facility] Patient Name: Elmo Montoya Date of : 1980 Referring Provider: Otoniel Ocampo [address] [facility] [id number] ESTABLISHED EPILEPSY CLINIC NOTE 08/05/2022 10:20 AM Reason for Visit: Follow Up and Epilepsy Clinical Summary: Ms. Montoya is a 42 year old right-handed female [facility]. We had a visit using: Troppin I received consent from the patient to perform the visit using this platform. There is no one accompanying the patient during today's visit. Classification Summary HISTORY OF PRESENT ILLNESS Handedness: right-handed Age of onset: Seizure History and Evolution History of seizures that began after delivery; post- which initially was attributable to pre-eclampsia but recurred. Seizures. Only at night out of sleep. Usually seem around menstrual period and only out of sleep by her report. Last seizure was perhaps about a year ago. She was originally on dilantin- did okay but attempted wean and was not successful bu tdid well. She was also trialed on lamotrigine and had throat swelling and allergic reaction. Was also trial on topamax, switched to topamax to vimpat (not sure why she made the change). Vimpat 150 mg bid currently. Taken this for several years. She has been compliant with treatment. Last two weeks she had increase her seizures. Attributed herself that she started on hormonal treatment for abnormal uterine bleeding. She felt off on it and felt this contributed to her most recent surgery and will having surgery for a fibroid. Interval Seizure History 42 year old woman. Doing well, no seizures. She is very anxious because the medicine is in backorder. She is having to rita to another pharmacy. There is a back log. If she ran out- plan would be bid clonazepam for 1 week and temporary use of topamax 200 mg bid andclose monitoring. Will continue to search and will review with our pharmacists. No other complaints. Total # of Current Anti-seizure Medications: Side Effects to Current Anti-seizure Medications: Seizure Frequency at First Visit: Longest Seizure-free Interval: CURRENT OUTPATIENT ANTISEIZURE MEDICATIONS (as of the start of the encounter) zonisamide (ZONEGRAN) 100 mg capsule take 2 pills in the morning and 3 pills in the evening. Prior Anti-seizure Therapies: Trial Adequacy: Max Daily Dose Achieved: Side Effects: Effectiveness: Comments: Gabapentin Lacosamide Topiramate Comorbidities: Episode Description: SEIZURE TYPE 1: Generalized motor Aura: no Description: No warning with the events. Seizures appear to be generalized seizure (generalized tonic clonic). Loss of awareness: Duration: Frequency: Last occurred: yes less than a minute SEIZURE TYPE 2: dialeptic Aura: no Description: During the day, she has had episodes on occasion where she will zone out for 30 seconds. She will also get some hand twitching when this happens. She has the episodes where she will pick. These can happen and she has no warning or recognition after this. No residual effects after these episodes. Loss of awareness: Duration: Frequency: Last occurred: yes less than a minute Patient Entered Data: EPILEPSY SCORE 12/28/2021 10:19 PM 07/30/2021 8:01 PM 07/30/2021 7:56 PM First answer obtained - 03/21/2019 8:09 AM PHQ-9 SCORE 0 [None-Minimal Depression] 0 [None-Minimal Depression] - - CAMILO 2 SCORE 0 [Negative Anxiety Screen] 0 [Negative Anxiety Screen] - - CAMILO 7 SCORE - - - - QOLIE-10 SCORE (0=worst; 100=best QoL - higher scores represent better function) 11 10 - - LSSS SCORE (0- no seizures 100- most severe possible seizures) - - - - C-SSRS SCREEN - - - - On average, how many hours of sleep do you get in a 24-hour period? - 8 - - PROMIS Sleep Disturbance T-SCORE - - 32 [within normal limits] 44 [within normal limits] Have you been diagnosed with Sleep Apnea? - No - - Seizure risk factors: Brain Tumor No POOL TABLE MECHANIC Infections No Developmental Delay No Family history of seizures No Febrile Seizure No Complications No Stroke No Traumatic Brain Injury No Previous Epilepsy Evaluations MRI Findings: 03/2019 IMPRESSION: Normal MR appearance of the brain. No distinct epileptogenic structural abnormality identified. Advanced degenerative changes right TMJ. EEG Findings: 03/29/2019 Classification Normal (Awake, Drowsy, 10-20 Scalp Electrodes, Anterior temporal electrodes) Impression This EEG is within normal limits. Other caregivers: Primary Care Provider: Cari Zaldivar PA-C Current Outpatient Medications Medication Sig zonisamide (ZONEGRAN) 100 mg capsule take 2 pills in the morning and 3 pills in the evening. No current facility-administered medications for this visit. ALLERGIES Allergen Reactions Lamictal [Lamotrigi* Swelling PAST MEDICAL HISTORY Diagnosis Date Calculus of gallbladder with other cholecystitis, without mention of obstruction 10/18/2005 Localization-related (focal) (partial) epilepsy and epileptic syndromes with simple partial seizures, without mention of intractable epilepsy Workup for epileptic cause neg Temporomandibular joint disorders, unspecified PAST SURGICAL HISTORY Procedure Laterality Date COLONOSCOPY W/BIOPSY SINGLE/MULTIPLE 08-28-08 HYSTEROSCOPY 03/28/2019 HYSTEROSCOPY, WITH POLYPECTOMY LAPAROSCOPY W TOTAL HYSTERECTOMY UTERUS 250 GM/< 11/2019 TL[facility], b/l salpingectomy LAPS SURG CHOLECYSTECTOMY W/CHOLANGIOGRAPHY 10/06/05 OPTX NASOMAX CPLX FX LEFT II TYPE W/WIRG & FXJ 1995 FAMILY HISTORY Problem Relation Age of Onset Breast Cancer Maternal Grandmother Coronary Artery Disease Maternal Grandfather Hypertension Maternal Grandfather Lipids Maternal Grandfather Coronary Artery Disease Paternal Grandfather 82 [place] SOCIAL HISTORY: -Lives in [place], [place] Social History Tobacco Use Smoking status: Never Smokeless tobacco: Never Vaping Use Vaping Use: Never used Substance Use Topics Alcohol use: No Drug use: No Review of Systems All other systems reviewed and are negative. 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 Patient continues to hae seizures on medication without recent change, discussed she at risk of intractability medically and this was discussed. Epilepsy Classification Focal Epilepsy Seizure Classification Seizure Type A: Motor Seizure: Automotor (with LOC) -> Motor Seizure: Generalized Tonic-Clonic (with LOC) Doing well since increase in vimpat No seizures Interval Impression: No seizures Again, issues with getting medicine Will monitor closely Plan as discussed The patient's compliance with therapy has been: Excellent PLAN: Data reviewed as above including: electronic medical record Testing Ordered none Education Patient was given my clinic contact information. It is reasonable for the patient to continue driving based on good compliance with antiseizure medication and current seizure control. Medical Management Continue current medications. Prescriptions not needed at this time. if cannot get zns- klonopin 0.5 mg bid for week, start topamax to 200 mg bid rapidly till available will check pharmacy The possibility of serious and adverse reactions were discussed in detail as well as proper use of medication. I discussed that not taking this medication as directed could worsen seizures and can bedangerous. I discussed the risks, benefits and alternatives of the medical plan with the patient. Questions were answered. The patient agreed with the plan as discussed. FOLLOW-UP: Return in about 4 months (around 12/05/2022). I spent a total of 16 minutes on the date of the service which included: preparing to see the patient [id number] patient care completing clinical documentation obtaining and/or reviewing separately obtained history counseling and educating the patient/family/caregiver independently interpreting results (not separately reported) communicating results to the patient/family/caregiver Otoniel Ocampo MD, PhD cc: Primary Care Physician: Cari Zaldivar PA-C [id number] [facility] [address] Referring: Otoniel Ocampo [id number] [facility] [id number] Fax: Patient: Ms. Elmo Montoya [address] [facility] [id number] documented in this encounterPro[facility]11-01-[facility]22 History of Present illness Narrative* Neda Ha MD - 04/05/2022 9:49 AM EDT Elmo is a 42 year old who presents for an annual gynecologic exam without complaints. Has two kids ages 18/20. Menses: no menses - hx hysterectomy. Contraception: hysterectomy HPV vaccine: No Last Pap: 02/19/2019 normal HPV: 02/18/2019 negative History of abnormal pap: No Last mammogram: 2021normal Sexually active: Yes History of STDS: None Patient concerns for STD exposure: No. Exercise: Walks for exercise. Diet: balance of fruits, veggies and proteins. 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 History Comments: Sexual Activity: Yes; Male; vasectomy Contraception: Surgical PAST MEDICAL HISTORY Diagnosis Date Calculus of gallbladder with other cholecystitis, without mention of obstruction 10/18/2005 Localization-related (focal) (partial) epilepsy and epileptic syndromes with simple partial seizures, without mention of intractable epilepsy Workup for epileptic cause neg Temporomandibular joint disorders, unspecified PAST SURGICAL HISTORY Procedure Laterality Date COLONOSCOPY W/BIOPSY SINGLE/MULTIPLE 08-28-08 HYSTEROSCOPY 03/28/2019 HYSTEROSCOPY, WITH POLYPECTOMY LAPAROSCOPY W TOTAL HYSTERECTOMY UTERUS 250 GM/< 11/2019 TL[facility], b/l salpingectomy LAPS SURG CHOLECYSTECTOMY W/CHOLANGIOGRAPHY 10/06/05 OPTX NASOMAX CPLX FX LEFT II TYPE W/WIRG & FXJ 1995 FAMILY HISTORY Problem Relation Age of Onset Breast Cancer Maternal Grandmother Coronary Artery Disease Maternal Grandfather Hypertension Maternal Grandfather Lipids Maternal Grandfather Coronary Artery Disease Paternal Grandfather 82 [place] SOCIAL HISTORY Social History Tobacco Use Smoking status: Never Smokeless tobacco: Never Vaping Use Vaping Use: Never used Substance Use Topics Alcohol use: No Drug use: No REVIEW OF SYSTEMS Abdomen: No abdominal pain, nausea, vomiting, diarrhea, or constipation. No bloating, early satiety, indigestion, or increased flatulence. Bladder: No dysuria, gross hematuria, urinary frequency, urinary urgency, or incontinence. Breast: No breast lumps, nipple d/c, overlying skin changes, redness or skin retraction. Allergies and current medication updated:Yes EXAM: BP 162/100 Wt 0 lb (0.0kg) LMP 09/13/2019 GENERAL: pleasant, female in no apparent distress HEENT: Normocephalic, atraumatic, mucus membranes moist, and no lesions NECK: Supple, full range of motion, no adenopathy, and thyroid normal DERMATOLOGY: Normal, without lesions, non-icteric, and non-hirsute BREAST: soft, non-tender, symmetric, no dominant mass, normal nipple-areolar complex, no lymphadenopathy, and no nipple discharge ABDOMEN: soft, non-tender, and no masses PELVIC: external genitalia normal, normal Bartholin's glands, urethra, [place]'s glands, no vulvar lesions, good vaginal support, physiologic discharge present, normal appearing perineal body and perianal region, cervix surgically absent BIMANUAL: no adnexal masses, non-tender, and uterus surgically absent RECTOVAGINAL: deferred. NEURO: alert and oriented x3,exam grossly non-focal EXTREMITIES: normal ASSESSMENT/PLAN: 1) Health maintenance: Pap/HPV up to date. mammo 2) Contraception: hysterectomy. Contraceptive options reviewed and information provided. 3) STD screening: Declined STD check. 4) Follow up one year or sooner as needed Neda José MD * Lida Aquino MA - 04/05/2022 9:41 AM EDT Glass Selector offered: Patient declines. documented in this encounterProtest[facility]10-13-2022 Miscellaneous Notes* Letter - Mammography Coordinator - 03/17/2022 9:20 AM EDT March 17, 2022 PID: [id number] Elmo Montoya [address] [place] [address] Dear Ms. Montoya, We are pleased to inform you that the results of your recent breast imaging exam on 03/17/2022 are normal. Your mammogram demonstrates that you have dense breast tissue, which could hide abnormalities. Dense breast tissue, in and of itself, is a relatively common condition. Therefore, this information is not provided to cause undue concern; rather, it is to raise your awareness and promote discussion with your health care provider regarding the presence of dense breast tissue in addition to other riskfactors. Early detection of cancer is very important. We also understand recommendations regarding breast cancer screening are controversial. Please discuss with your primary care provider which strategy is best for you and whether a mammogram is right for you. Your imaging studies and report will be kept on file at [facility] as part of your permanent medical record and are available for your continuing care. Thank you for allowing us to help in meeting your health care needs. Sincerely, Dr. Wilburn Interpreting Radiologist St. [facility] (Normal over 40) documented in this encounterProtestant [facility]10-13-2022 History of Present illness Narrative* Kayla Fernandez, Mammo Tech - 03/17/2022 8:30 AM EDT Radiology Service Progress Note PATIENT NAME: Elmo USN: [id number] DATE OF SERVICE: March 17, 2022 TIME: 8:36 AM PATIENT IDENTITY VERIFICATION COMPLETED USING TWO (2) IDENTIFIERS: Name and Date of confirmedby patient verbally. FALL SCREENING: Has the patient had 2 falls in the last year or 1 fall with injury or currently using an Ambulatory Assistive Device (Walker, Cane, Wheelchair, Crutches, etc.)? No PATIENT GENDER DATA: Female. status: : No status: NO. PATIENT RELEVANT IMPLANT DATA REVIEWED: Not Applicable RADIOLOGY DEPARTMENT: Mammography PERIPHERAL IV DATA: Not applicable SIGNED BY: Kayla Fernandez [employer] March 17, 2022 8:36 AM documented in this encounterProtestant Deacon[facility] Hospital08-02-2022 History of Present illness Narrative* Otoniel Ocampo MD, PhD - 01/04/2022 2:42 PM EDT [facility] Patient Name: Elmo Montoya Date of : 1980 Referring Provider: Otoniel Ocampo [address] [facility] [address] ESTABLISHED EPILEPSY CLINIC NOTE 01/04/2022 2:40 PM Reason for Visit: Follow Up and Epilepsy Clinical Summary: Ms. Montoya is a 41 year old right-handed female [facility]. We had a visit using: Troppin I received consent from the patient to perform the visit using this platform. There is no one accompanying the patient during today's visit. HISTORY OF PRESENT ILLNESS Handedness: right-handed Age of onset: Seizure History and Evolution History of seizures that began after delivery; post- which initially was attributable to pre-eclampsia but recurred. Seizures. Only at night out of sleep. Usually seem around menstrual period and only out of sleep by her report. Last seizure was perhaps about a year ago. She was originally on dilantin- did okay but attempted wean and was not successful bu tdid well. She was also trialed on lamotrigine and had throat swelling and allergic reaction. Was also trial on topamax, switched to topamax to vimpat (not sure why she made the change). Vimpat 150 mg bid currently. Taken this for several years. She has been compliant with treatment. Last two weeks she had increase her seizures. Attributed herself that she started on hormonal treatment for abnormal uterine bleeding. She felt off on it and felt this contributed to her most recent surgery and will having surgery for a fibroid. Interval Seizure History 41 year old doing well. No seizures. Tolerating medicine. Driving. Doing better. No other complaints. zonisamide at 200-300 happy no issues Total # of Current Anti-seizure Medications: Side Effects to Current Anti-seizure Medications: Seizure Frequency at First Visit: Longest Seizure-free Interval: CURRENT OUTPATIENT ANTISEIZURE MEDICATIONS (as of the start of the encounter) zonisamide (ZONEGRAN) 100 mg capsule take 2 pills in the morning and 3 pills in the evening. zonisamide (ZONEGRAN) 50 mg capsule Take 1 capsule by mouth twice daily. Take with 100 mg capsule to make 150 mg twice daily Prior Anti-seizure Therapies: Trial Adequacy: Max Daily Dose Achieved: Side Effects: Effectiveness: Comments: Gabapentin Lacosamide Topiramate Comorbidities: Episode Description: SEIZURE TYPE 1: Generalized motor Aura: no Description: No warning with the events. Seizures appear to be generalized seizure (generalized tonic clonic). Loss of awareness: Duration: Frequency: Last occurred: yes less than a minute SEIZURE TYPE 2: dialeptic Aura: no Description: During the day, she has had episodes on occasion where she will zone out for 30 seconds. She will also get some hand twitching when this happens. She has the episodes where she will pick. These can happen and she has no warning or recognition after this. No residual effects after these episodes. Loss of awareness: Duration: Frequency: Last occurred: yes less than a minute Patient Entered Data: EPILEPSY SCORE 12/28/2021 10:19 PM 07/30/2021 8:01 PM 07/30/2021 7:56 PM First answer obtained - 03/21/2019 8:09 AM PHQ-9 SCORE 0 [None-Minimal Depression] 0 [None-Minimal Depression] - - CAMILO 2 SCORE 0 [Negative Anxiety Screen] 0 [Negative Anxiety Screen] - - CAMILO 7 SCORE - - - - QOLIE-10 SCORE (0=worst; 100=best QoL higher scores represent better function) 11 10 - - LSSS SCORE (0- no seizures 100- most severe possible seizures) - - - - C-SSRS SCREEN - - - - On average, how many hours of sleep do you get in a 24-hour period? - 8 - - PROMIS Sleep Disturbance T-SCORE - - 32 [within normal limits] 44 [within normal limits] Have you been diagnosed with Sleep Apnea? - No - - Seizure risk factors: Brain Tumor No POOL TABLE MECHANIC Infections No Developmental Delay No Family history of seizures No Febrile Seizure No Complications No Stroke No Traumatic Brain Injury No Previous Epilepsy Evaluations MRI Findings: 03/2019 IMPRESSION: Normal MR appearance of the brain. No distinct epileptogenic structural abnormality identified. Advanced degenerative changes right TMJ. EEG Findings: 03/29/2019 Classification Normal (Awake, Drowsy, 10-20 Scalp Electrodes, Anterior temporal electrodes) Impression This EEG is within normal limits. Other caregivers: Primary Care Provider: Cari Zaldivar PA-C Current Outpatient Medications Medication Sig zonisamide (ZONEGRAN) 100 mg capsule take 2 pills in the morning and 3 pills in the evening. No current facility-administered medications for this visit. ALLERGIES Allergen Reactions Lamictal [Lamotrigi* Swelling PAST MEDICAL HISTORY Diagnosis Date Calculus of gallbladder with other cholecystitis, without mention of obstruction 10/18/2005 Localization-related (focal) (partial) epilepsy and epileptic syndromes with simple partial seizures, without mention of intractable epilepsy Workup for epileptic cause neg Temporomandibular joint disorders, unspecified PAST SURGICAL HISTORY Procedure Laterality Date COLONOSCOPY W/BX 08-28-08 HYSTEROSCOPY 03/28/2019 HYSTEROSCOPY, WITH POLYPECTOMY LAP CHOLECYSTECT/CHOLANGIOGRAPHY 10/06/05 OPEN RX NOSE/JAW FRACT+WIRES 1995 TLH, UTERUS 250 G OR LES 11/2019 TLH, b/l salpingectomy FAMILY HISTORY Problem Relation Age of Onset Breast Cancer Maternal Grandmother Coronary Artery Disease Maternal Grandfather Hypertension Maternal Grandfather Lipids Maternal Grandfather Coronary Artery Disease Paternal Grandfather 82 [place] Review of Systems All other systems reviewed and are negative. 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 Patient continues to hae seizures on medication without recent change, discussed she at risk of intractability medically and this was discussed. Epilepsy Classification Focal Epilepsy Seizure Classification Seizure Type A: Motor Seizure: Automotor (with LOC) -> Motor Seizure: Generalized Tonic-Clonic (with LOC) Doing well since increase in vimpat No seizures Interval Impression: No seizures with optimization of zonisamide. The patient's compliance with therapy has been: Excellent PLAN: Data reviewed as above including: electronic medical record Testing Ordered none Education Patient was given my clinic contact information. It is reasonable for the patient to continue driving based on good compliance with antiseizure medication and current seizure control. Medical Management Continue current medications. Prescriptions not needed at this time. zns 200-300 I discussed the risks, benefits and alternatives of the medical plan with the patient. Questions were answered. The patient agreed with the plan as discussed. FOLLOW-UP: Return in about 6 months (around 07/07/2022). I spent a total of 15 minutes on the date of the service which included: preparing to see the patient [id number] patient care completing clinical documentation obtaining and/or reviewing separately obtained history counseling and educating the patient/family/caregiver Otoniel Ocampo MD, PhD cc: Primary Care Physician: Cari Zaldivar PA-C [address] [facility] [address] Referring: Otoniel Ocampo [address] [facility] [address] Patient: Ms. Elmo Montoya [id number] [id number] documented in this encounterProtestant Deacon[facility] Hospital05-05-2022 Miscellaneous Notes* Telephone Encounter - Danielle Levy - 10/07/2021 11:36 AM EDT spoke with Yoana vasquez clarified that ZNS is 2 tablets in the AM and 3 tablets in the PM MAR updated Danielle Levy * Telephone Encounter - Sheridan Ambriz - 10/07/2021 10:30 AM EDT Pharmacist at [facility] at [phone] calling regarding the instructions on this patient's Zonegran Medication. There are two sets of instructions needing clarification. documented in this encounterProtestant Deaconess Hospital05-05-2022 Miscellaneous Notes* Telephone Encounter - Danielle Levy - 10/07/2021 10:00 AM EDT Spoke with Elmo, States that she is supposed to see Dr. Ocampo at this time. routed to Parveen Lopez and [facility] schedulers to see if they can schedule 6 weeks follow up appointment. 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 Patient continues to hae seizures on medication without recent change, discussed she at risk of intractability medically and this was discussed. Medical Management Medication changes were discussed. increase zonisamide to 200-300, new script sent FOLLOW-UP: Return in about 6 weeks (around 11/17/2021). ZNS: 100 m/300 Left message to call the office between 9:30 and 10 am if possible. Danielle L Cam * Telephone Encounter - Marcel Lyons - 10/06/2021 3:39 PM EDT Patient called, states she saw Dr. Ocampo today and he informed her to schedule a 6 week follow up appointment. Neuro scheduling line informed her there is no availability until January. Please call patient at to discuss. documented in this encounterProtestant Deaconess Hospital05-04-2022 History of Present illness Narrative* Otoniel Ocampo MD, PhD - 10/06/2021 3:08 PM EDT [facility] Patient Name: Elmo Montoya Date of : 1980 Referring Provider: Cari Zaldivar [address] [facility] [address] ESTABLISHED EPILEPSY CLINIC NOTE 10/06/2021 3:00 PM Reason for Visit: Follow Up and Epilepsy Clinical Summary: Ms. Montoya is a 41 year old right-handed female [facility]. We had a visit using: Troppin I received consent from the patient to perform the visit using this platform. Classification Summary HISTORY OF PRESENT ILLNESS Handedness: right-handed Age of onset: Seizure History and Evolution History of seizures that began after delivery; post- which initially was attributable to pre-eclampsia but recurred. Seizures. Only at night out of sleep. Usually seem around menstrual period and only out of sleep by her report. Last seizure was perhaps about a year ago. She was originally on dilantin- did okay but attempted wean and was not successful bu tdid well. She was also trialed on lamotrigine and had throat swelling and allergic reaction. Was also trial on topamax, switched to topamax to vimpat (not sure why she made the change). Vimpat 150 mg bid currently. Taken this for several years. She has been compliant with treatment. Last two weeks she had increase her seizures. Attributed herself that she started on hormonal treatment for abnormal uterine bleeding. She felt off on it and felt this contributed to her most recent surgery and will having surgery for a fibroid. Interval Seizure History 41 year old sen in follow up. Had to maintain on zonisamide- even with generic vimpat could not afford. Remains on vimpat- increased on own to 200 mg bid- tolerating, worried about more seizures, okay with increase further. Very frustrating situation and I empathized with her on the predicament and hope we can stabilize with zonisamide. Trying to cope No other issues. Total # of Current Anti-seizure Medications: Side Effects to Current Anti-seizure Medications: Seizure Frequency at First Visit: Longest Seizure-free Interval: CURRENT OUTPATIENT ANTISEIZURE MEDICATIONS (as of the start of the encounter) zonisamide (ZONEGRAN) 50 mg capsule Take 1 capsule by mouth twice daily. Take with 100 mg capsule to make 150 mg twice daily zonisamide (ZONEGRAN) 100 mg capsule Take 1 capsule by mouth twice daily. Take with 50 mg capsule to make 150 mg twice daily Prior Anti-seizure Therapies: Trial Adequacy: Max Daily Dose Achieved: Side Effects: Effectiveness: Comments: Gabapentin Lacosamide Topiramate Comorbidities: Episode Description: SEIZURE TYPE 1: Generalized motor Aura: no Description: No warning with the events. Seizures appear to be generalized seizure (generalized tonic clonic). Loss of awareness: Duration: Frequency: Last occurred: yes less than a minute SEIZURE TYPE 2: dialeptic Aura: no Description: During the day, she has had episodes on occasion where she will zone out for 30 seconds. She will also get some hand twitching when this happens. She has the episodes where she will pick. These can happen and she has no warning or recognition after this. No residual effects after these episodes. Loss of awareness: Duration: Frequency: Last occurred: yes less than a minute Patient Entered Data: EPILEPSY SCORE 07/30/2021 8:01 PM 07/30/2021 7:56 PM 07/28/2019 9:04 PM First answer obtained - 03/21/2019 8:09 AM PHQ-9 SCORE 0 [None-Minimal Depression] - 0 [None-Minimal Depression] - CAMILO 2 SCORE 0 [Negative Anxiety Screen] - 0 [Negative Anxiety Screen] - CAMILO 7 SCORE - - - - QOLIE-10 SCORE (0=worst; 100=best QoL higher scores represent better function) 10 - 18 - LSSS SCORE (0- no seizures 100- most severe possible seizures) - - - - C-SSRS SCREEN - - - - On average, how many hours of sleep do you get in a 24-hour period? 8 - - - PROMIS Sleep Disturbance T-SCORE - 32 [within normal limits] - 44 [within normal limits] Have you been diagnosed with Sleep Apnea? 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 No distinct epileptogenic structural abnormality identified. Advanced degenerative changes right TMJ. EEG Findings: 03/29/2019 Classification Normal (Awake, Drowsy, 10-20 Scalp Electrodes, Anterior temporal electrodes) Impression This EEG is within normal limits. Other caregivers: Primary Care Provider: Cari Zaldivar PA-C Current Outpatient Medications Medication Sig zonisamide (ZONEGRAN) 100 mg capsule take 2 pills in the morning and 3 pills in morning. zonisamide (ZONEGRAN) 50 mg capsule Take 1 capsule by mouth twice daily. Take with 100 mg capsule to make 150 mg twice daily No current facility-administered medications for this visit. ALLERGIES Allergen Reactions Lamictal [Lamotrigi* Swelling PAST MEDICAL HISTORY Diagnosis Date Calculus of gallbladder with other cholecystitis, without mention of obstruction 10/18/2005 Localization-related (focal) (partial) epilepsy and epileptic syndromes with simple partial seizures, without mention of intractable epilepsy Workup for epileptic cause neg Temporomandibular joint disorders, unspecified PAST SURGICAL HISTORY Procedure Laterality Date COLONOSCOPY W/BX 08-28-08 HYSTEROSCOPY 03/28/2019 HYSTEROSCOPY, WITH POLYPECTOMY LAP CHOLECYSTECT/CHOLANGIOGRAPHY 10/06/05 OPEN RX NOSE/JAW FRACT+WIRES 1995 TLH, UTERUS 250 G OR LES 11/2019 TLH, b/l salpingectomy FAMILY HISTORY Problem Relation Age of Onset Breast Cancer Maternal Grandmother Coronary Artery Disease Maternal Grandfather Hypertension Maternal Grandfather Lipids Maternal Grandfather Coronary Artery Disease Paternal Grandfather 82 [place] SOCIAL HISTORY: -Lives in [place], [place] -Patient lives alone? -Vocation: -Education: -Cigarette, alcohol, substance use: -Functional status: -Patient driving? Review of Systems All other systems reviewed and are negative. 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 Patient continues to hae seizures on medication without recent change, discussed she at risk of intractability medically and this was discussed. Epilepsy Classification Focal Epilepsy Seizure Classification Seizure Type A: Motor Seizure: Automotor (with LOC) -> Motor Seizure: Generalized Tonic-Clonic (with LOC) Doing well since increase in vimpat No seizures Interval Impression: Breakthrough seizure in the setting of changing ASM Stable for few days with higher dose of zonisamide but need to remain vigilent. The patient's compliance with therapy has been: Excellent PLAN: Data reviewed as above including: electronic medical record Testing Ordered none Education The following issues were discussed with the patient on this visit and written instructions provided as below- Seizure precautions and safety, seizure first aide, when to seek emergency care. Patient was given my clinic contact information. Medical Management Medication changes were discussed. increase zonisamide to 200-300, new script sent The possibility of serious and adverse reactions were discussed in detail as well as proper use of medication. I discussed that not taking this medication as directed could worsen seizures and can bedangerous. I discussed the risks, benefits and alternatives of the medical plan with the patient. Questions were answered. The patient agreed with the plan as discussed. FOLLOW-UP: Return in about 6 weeks (around 11/17/2021). I spent a total of 20 minutes on the date of the service which included: preparing to see the patient [id number] patient care completing clinical documentation obtaining and/or reviewing separately obtained history counseling and educating the patient/family/caregiver ordering medications, tests, or procedures independently interpreting results (not separately reported) Otoniel Ocampo MD, PhD cc: Primary Care Physician: Cari Zaldivar PA-C [address] [facility] [address] Referring: Cari Zaldivar [address] [phone] Patient: Ms. Elmo Montoya [address] [id number] documented in this encounterProtestant [facility]acon[facility] Hospital04-26-2022 Miscellaneous Notes* Telephone Encounter - Anay Gardner PA-C - 09/28/2021 2:35 PM EDT The following approved medication requests have been transmitted electronically. Signed Prescriptions Disp Refills lacosamide (VIMPAT) 200 mg 180 tablet 1 Sig: Take 1 tablet by mouth twice daily for 180 days. generic trial CARMELA Class: C-V NISHA: No Anay Gardner PA-C * Telephone Encounter - Danielle Levy - 09/28/2021 1:14 PM EDT routed to send the LCM 200 as a 90 day supply Danielle Levy documented in this encounterProtestant Deaconess Hospital04-26-2022 Miscellaneous Notes* Telephone Encounter - Anay Gardner PA-C - 09/28/2021 8:46 AM EDT Both sent over yesterday in a refill encounter. The following approved medication requests have been transmitted electronically. Signed Prescriptions Disp Refills zonisamide (ZONEGRAN) 100 mg capsule 180 capsule 0 Sig: Take 1 capsule by mouth twice daily. Take with 50 mg capsule to make 150 mg twice daily NISHA: No Authorizing Provider: ANAY GARDNER zonisamide (ZONEGRAN) 50 mg capsule 180 capsule 0 Sig: Take 1 capsule by mouth twice daily. Take with 100 mg capsule to make 150 mg twice daily NISHA: No Authorizing Provider: ANAY GARDNER Refused Prescriptions Disp Refills lacosamide (VIMPAT) 200 mg 180 tablet 1 Sig: Take 1 tablet by mouth twice daily for 180 days. generic trial CARMELA Class: C-V NISHA: No lacosamide (VIMPAT) 50 mg tab 180 tablet 1 Sig: Take 1 tablet by mouth twice daily for 180 days. CARMELA Class: C-V NISHA: No Anay Gardner PA-C * Telephone Encounter - Danielle Levy - 09/27/2021 4:48 PM EDT Spoke with Elmo, She found a pharmacy that will honor both GX LCM for the 200 mg and 50 mg tablets Please send the LCM RXs over to [facility] pharmacy at [phone] We also reviewed the information below taken normal ZNS tonight and start the 150 mg BID tomorrow. routed for LCM RX to be called in. Danielle Levy * Telephone Encounter - Cherry Green - 09/27/2021 2:46 PM EDT Pt found pharmacy for Vimpat; rx placed. * Telephone Encounter - Anay Gardner PA-C - 09/27/2021 2:20 PM EDT Yes we can try splitting the dose. If she has another seizure in the next week or so, we can increase ZNS further. I sent over a ZNS 50mg prescription so that they can take one 100 mg capsule and one 50mg capsule to make it 150mg BID. Anay Gardner PA-C * Telephone Encounter - Danielle Levy - 09/27/2021 9:52 AM EDT 08/03/[address] 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 Patient continues to hae seizures on medication without recent change, discussed she at risk of intractability medically and this was discussed. Interval Impression: Patient doing well. Issue today is cost of vimpat with change of insurance- itis too prohibitive to remain on the medicine which is unfortunate and frustrating to patient and myself. We will continue to explore alternative options to mitigate cost and eventualy generic formulation (though immmediate cost reductions will not be as robust with first generics). We discussed options and will transition to zonisamide and she will complete vimpat over the next month and we will monitor closely. Medical Management Continue current medications. Prescriptions not needed at this time. Medication changes were discussed. change to zonisamide 200 mg qhs FOLLOW-UP: Return in about 2 months (around 10/03/2021). ========= Had tried to get back on LCM: Generic is still too expensive [facility] only covered the 50 mg pills LCM card has not more coverage for patient ZNS was increased to 300 mg at bedtime on 09/23/2021 ========= Spoke with Elmo Seizure last night in the kitchen at the sink when started shaking/+LOC, +TB, -UI/lasted about 1.5 minutes/ helped her sit down. happened around 9 pm, same as the last seizure. Elmo is wondering if splitting the ZNS would work instead of taking it only at bedtime. Danielle Levy * Telephone Encounter - Radha SHETH - 09/27/2021 8:24 AM EDT Seizure activity: Name of Caller : Elmo Montoya Relationship to patient: Self If not self will need patient permission to release results or disclose health information with caller documented in FYI. Was permission obtained from patient? Yes Patient identified by Name and Date of . Elmo Montoya1980, Yes Contact phone number: [phone] (home) Date of seizure: 09/26/2021 Duration: 1.5 min Back to Baseline (Yes/No): yes Emergency treatment needed (Yes/No): no Patient of Dr. ocampo Thank you for calling the [facility] [place]. You will receive a return call within 24 hours. documented in this encounterProtestant Deaconess Hospital04-25-2022 Miscellaneous Notes* Telephone Encounter - Anay Gardner PA-C - 09/27/2021 8:01 PM EDT The following approved medication requests have been transmitted electronically. Signed Prescriptions Disp Refills lacosamide (VIMPAT) 50 mg tab 180 tablet 1 Sig: Take 1 tablet by mouth twice daily for 180 days. CARMELA Class: C-V NISHA: No Authorizing Provider: ANAY GARDNER lacosamide (VIMPAT) 200 mg 60 tablet 5 Sig: Take 1 tablet by mouth twice daily for 150 days. generic trial CARMELA Class: C-V NISHA: No Authorizing Provider: ANAY GARDNER PA-C * Telephone Encounter - Cherry Green - 09/27/2021 2:43 PM EDT Prescription Refill: NEW PHARMACY REQUEST Requested by: patient Please E-Scribe Caller Contact Number: Pharmacy Name: [facility] Number: [phone] Generic/ brand: 30 or 90 day supply requested: 90 Last appointment: 08/03/2021 Next Appointment: 10/06/[address] Ocampo documented in this encounterMichael Ville [id number] Miscellaneous Notes* Telephone Encounter - Lou Calvert PA-C - 09/23/2021 3:56 PM EDT The following approved medication requests have been transmitted electronically. Signed Prescriptions Disp Refills zonisamide (ZONEGRAN) 100 mg capsule 270 capsule 1 Sig: Take 3 capsules by mouth once daily. NISHA: No Authorizing Provider: LOU CALVERT PA-C * Telephone Encounter - Danielle Levy - 09/23/2021 2:07 PM EDT Spoke with Elmo, Reviewed the recommenations She agrees with the increase in the ZNS/will start tonight routed for the updated RX Danielle Levy * Telephone Encounter - Lou Calvert PA-C - 09/23/2021 1:34 PM EDT If she is tolerating Zonegran would recommend increasing to 300mg for additional seizure protection. If she is agreeable I can send in a new/updated prescription. Thanks, Lou Calvert PA-C * Telephone Encounter - Danielle Levy - 09/23/2021 11:20 AM EDT Generic has been tried and still not affordable Danielle Levy * Telephone Encounter - Lou Calvert PA-C - 09/23/2021 10:42 AM EDT Generic is now available for LCM, resending prescriptions (50 and 200mg tabs) to see if it is more affordable now, and plan can be continued to start that medication. If they are affordable, will need to make a plan to titrate to her target dose. ThanksLou PA-C * Telephone Encounter - Danielle Levy - 09/23/2021 10:10 AM EDT 08/03/[address] 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 Patient continues to hae seizures on medication without recent change, discussed she at risk of intractability medically and this was discussed. Interval Impression: Patient doing well. Issue today is cost of vimpat with change of insurance- itis too prohibitive to remain on the medicine which is unfortunate and frustrating to patient and myself. We will continue to explore alternative options to mitigate cost and eventualy generic formulation (though immmediate cost reductions will not be as robust with first generics). We discussed options and will transition to zonisamide and she will complete vimpat over the next month and we will monitor closely. The patient's compliance with therapy has been: Excellent Testing Ordered anticonvulsant level Medical Management Continue current medications. Prescriptions not needed at this time. Medication changes were discussed. change to zonisamide 200 mg qhs FOLLOW-UP: Return in about 2 months (around 10/03/2021). LCM 50 mg and 200 m mg BID not taking, again can't aford ZNS 200 mg at bedtime Spoke with Elmo, She is taking the ZNS and has not started the LCM because the [facility] will only honor the 50 mg tablets, but not the 200 mg so she never started the LCM after all. Was sitting on the couch, seizure occurred at 9:30 pm last night, +TB, - UI, AVA, lasted 2 minutes No triggers she can think of no missed doses, work went well, and no sleeping or illness has follow up with Dr. Ocampo October 06, 2021 routed for review Danielle Levy * Telephone Encounter - Radha SHETH - 09/23/2021 8:09 AM EDT Seizure activity: Name of Caller : Elmo Montoya Relationship to patient: Self If not self will need patient permission to release results or disclose health information with caller documented in FYI. Was permission obtained from patient? Yes Patient identified by Name and Date of . Elmo Montoya1980, Yes Contact phone number: [phone] (home) Date of seizure: 09/22/2021 Duration: 2 mins Back to Baseline (Yes/No): yes Emergency treatment needed (Yes/No): no Patient of Dr. ocampo Thank you for calling the [facility]. You will receive a return call within 24 hours. documented in this encounterProtest[facility]04-04-2022 Miscellaneous Notes* Plan of Care - Lorin Baker MD - 09/06/2021 5:31 PM EDT Epilepsy NOC 5:46 PM Received page from Dyana CRENSHAW regarding Ms. Montoya. She had a breakthrough seizure in the setting of transition from Vimpat to ZNS. Started ZNS 100 mg on 08/30 (3 day bridge). Stopped LCM 250 mg BID completely on 09/02. Was planned to go up to to 200 mg ZNS tomorrow. Was sitting at home working on her computer. Fell to the ground and was found by her daughter in full-body convulsion at 2 PM, consistent with grand mal seizures. No focal symptoms preceded. Lasted 1.5 to 2 minutes, +ve TB, +UI, no BI. Feels sore now, but able to continue working from home. Denies any focal post- ictal deficits. Reports she was in excellent control prior to this, cannot recall when her last seizure was. Adamant this a bad experience and does not want to have another seizure. Tolerating the ZNS without any side effects. Plan Klonopin wafers 0.5 mg BID x 3 days to bridge Start ZNS 200 mg tonight Seizure precautions discussed - OK to not drive, reviewed safety measures Lorin Baker MD PGY-3 Neurology Pager: [phone] September 06, 2021 documented in this encounterProtestant [facility]04-04-2022 Miscellaneous Notes* Telephone Encounter - Danielle Levy - 09/06/2021 5:21 PM EDT being addressed in today's seizure call. Danielle Levy * Telephone Encounter - Sabiha Barnes - 09/06/2021 3:55 PM EDT Medication Concern Person Calling Elmo Montoya (home) Name of medication New medication Concern with medication Pt wants to talk to a nurse regarding new medication Patient of Dr. Ocampo documented in this encounterProtestant [facility]acon[facility]04-04-2022 Miscellaneous Notes* Telephone Encounter - Danielle Levy - 09/06/2021 5:01 PM EDT 08/03/21: VV Dr. 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 Patient continues to hae seizures on medication without recent change, discussed she at risk of intractability medically and this was discussed. Interval Impression: Patient doing well. Issue today is cost of vimpat with change of insurance- itis too prohibitive to remain on the medicine which is unfortunate and frustrating to patient and myself. We will continue to explore alternative options to mitigate cost and eventualy generic formulation (though immmediate cost reductions will not be as robust with first generics). We discussed options and will transition to zonisamide and she will complete vimpat over the next month and we will monitor closely. The patient's compliance with therapy has been: Excellent Testing Ordered anticonvulsant level Education It is reasonable for the patient to continue driving based on good compliance with antiseizure medication and current seizure control. Medical Management Continue current medications. Prescriptions not needed at this time. Medication changes were discussed. change to zonisamide 200 mg qhs FOLLOW-UP: Return in about 2 months (around 10/03/2021). ZNS: 100 m mg once a day LCM: last dose either August 31 Seizure this afternoon +LOC +GTC +TB +UI currently just started the ZNS 100 mg for a week, last week soon to start the 200 mg dose last LCM taken last week. tearful and upset, that she will need more medication now and assured her that the seizure most likely is because of the transition of medication to ZNS and it's not had a chance to be therapeutic yet. Not sure worry too much as yet, and let me discuss with the team. Give the oncall nurse number as well. routed for review Danielle Levy * Telephone Encounter - Radha SHETH - 09/06/2021 4:18 PM EDT Seizure activity: Name of Caller : Elmo Montoya Relationship to patient: Self If not self will need patient permission to release results or disclose health information with caller documented in FYI. Was permission obtained from patient? Yes Patient identified by Name and Date of . Elmo Montoya1980, Yes Contact phone number: [phone] (home) Date of seizure: 09/06/2021 Duration: 1.5-2 mins Back to Baseline (Yes/No): yes Emergency treatment needed (Yes/No): no Patient of Dr. ocampo Thank you for calling the [facility]. You will receive a return call within 24 hours. documented in this encounterProtestant [facility]acon[facility]03-30-2022 Miscellaneous Notes* Telephone Encounter - Danielle Levy - 09/01/2021 11:36 AM EDT See phone encounter today 09/01/21 Danielle Levy documented in this encounterProtestant Deacon[facility]03-30-2022 Miscellaneous Notes* Telephone Encounter - Danielle Levy - 09/01/2021 9:03 AM EDT Spoke with Elmo, She had not started the ZNS yet. States she was told by Dr. Ocampo not to start until she had her liver checked. She went to the lab and they shannan her ZNS. She is supposed to go and get her labs today or tomorrow and is starting the ZNS tomorrow. Danielle Levy * Telephone Encounter - Ashlee Jimenez APRN.CNP - 09/01/2021 8:51 AM EDT Ok to check CMP and CBC, although no indication to check them from Dr. Ocampo QUENTIN. Orders placed. Ashlee Jimenez APRN.CNP * Telephone Encounter - Danielle Levy - 09/01/2021 8:27 AM EDT 08/03/[address] Ocampo Testing Ordered anticonvulsant level Medical Management Continue current medications. Prescriptions not needed at this time. Medication changes were discussed. change to zonisamide 200 mg qhs routed for review for liver panel to be drawn consider CBC w diff ( last done 11/07/2019) CMP last done (08/21/2018) Danielle Levy * Telephone Encounter - Jasmin Gauthiert - 09/01/2021 8:15 AM EDT ORDERS Person requesting order: Elmo Montoya Phone number: [phone] Order being requested: Liver test Note: Patient state the doctor wanted her to have a liver test before starting Zonisamide on 09/02/21. Medication level was done instead. Patient needs to have test done before 10:30am today Facility: [facility] Fax: Email: Patient of Dr. Ocampo documented in this encounterProtestant [facility]acon[facility]02-20-2009 History of Past illness Narrative* Problem Noted Date Resolved Date CHANGE OF BOWEL HABITS-DIARRHEA 07/25/2008 01/28/2021 Calculus of gallbladder with other cholecystitis, without mention of obstruction 10/18/2005 11/04/2019 documented as of this encounter (statuses as of 09/01/2021) [address]20-2009 History of Past illness Narrative* Problem Noted Date Resolved Date CHANGE OF BOWEL HABITS-DIARRHEA 07/25/2008 01/28/2021 Calculus of gallbladder with other cholecystitis, without mention of obstruction 10/18/2005 11/04/2019 documented as of this encounter (statuses as of 09/01/2021) [address]20-2009 History of Past illness Narrative* Problem Noted Date Resolved Date CHANGE OF BOWEL HABITS-DIARRHEA 07/25/2008 01/28/2021 Calculus of gallbladder with other cholecystitis, without mention of obstruction 10/18/2005 11/04/2019 documented as of this encounter (statuses as of 09/06/2021) [address]20-2009 History of Past illness Narrative* Problem Noted Date Resolved Date CHANGE OF BOWEL HABITS-DIARRHEA 07/25/2008 01/28/2021 Calculus of gallbladder with other cholecystitis, without mention of obstruction 10/18/2005 11/04/2019 documented as of this encounter (statuses as of 09/06/2021) [address]20-2009 History of Past illness Narrative* Problem Noted Date Resolved Date CHANGE OF BOWEL HABITS-DIARRHEA 07/25/2008 01/28/2021 Calculus of gallbladder with other cholecystitis, without mention of obstruction 10/18/2005 11/04/2019 documented as of this encounter (statuses as of 09/08/2021) [address]20-2009 History of Past illness Narrative* Problem Noted Date Resolved Date CHANGE OF BOWEL HABITS-DIARRHEA 07/25/2008 01/28/2021 Calculus of gallbladder with other cholecystitis, without mention of obstruction 10/18/2005 11/04/2019 documented as of this encounter (statuses as of 09/08/2021) [address]20-2009 History of Past illness Narrative* Problem Noted Date Resolved Date CHANGE OF BOWEL HABITS-DIARRHEA 07/25/2008 01/28/2021 Calculus of gallbladder with other cholecystitis, without mention of obstruction 10/18/2005 11/04/2019 documented as of this encounter (statuses as of 09/08/2021) [address]20-2009 History of Past illness Narrative* Problem Noted Date Resolved Date CHANGE OF BOWEL HABITS-DIARRHEA 07/25/2008 01/28/2021 Calculus of gallbladder with other cholecystitis, without mention of obstruction 10/18/2005 11/04/2019 documented as of this encounter (statuses as of 09/23/2021) [address]20-2009 History of Past illness Narrative* Problem Noted Date Resolved Date CHANGE OF BOWEL HABITS-DIARRHEA 07/25/2008 01/28/2021 Calculus of gallbladder with other cholecystitis, without mention of obstruction 10/18/2005 11/04/2019 documented as of this encounter (statuses as of 09/24/2021) [address]20-2009 History of Past illness Narrative* Problem Noted Date Resolved Date CHANGE OF BOWEL HABITS-DIARRHEA 07/25/2008 01/28/2021 Calculus of gallbladder with other cholecystitis, without mention of obstruction 10/18/2005 11/04/2019 documented as of this encounter (statuses as of 09/28/2021) [address]20-2009 History of Past illness Narrative* Problem Noted Date Resolved Date CHANGE OF BOWEL HABITS-DIARRHEA 07/25/2008 01/28/2021 Calculus of gallbladder with other cholecystitis, without mention of obstruction 10/18/2005 11/04/2019 documented as of this encounter (statuses as of 09/28/2021) [address]20-2009 History of Past illness Narrative* Problem Noted Date Resolved Date CHANGE OF BOWEL HABITS-DIARRHEA 07/25/2008 01/28/2021 Calculus of gallbladder with other cholecystitis, without mention of obstruction 10/18/2005 11/04/2019 documented as of this encounter (statuses as of 10/06/2021) [address]20-2009 History of Past illness Narrative* Problem Noted Date Resolved Date CHANGE OF BOWEL HABITS-DIARRHEA 07/25/2008 01/28/2021 Calculus of gallbladder with other cholecystitis, without mention of obstruction 10/18/2005 11/04/2019 documented as of this encounter (statuses as of 10/07/2021) [address]20-2009 History of Past illness Narrative* Problem Noted Date Resolved Date CHANGE OF BOWEL HABITS-DIARRHEA 07/25/2008 01/28/2021 Calculus of gallbladder with other cholecystitis, without mention of obstruction 10/18/2005 11/04/2019 documented as of this encounter (statuses as of 10/07/2021) [address]20-2009 History of Past illness Narrative* Problem Noted Date Resolved Date CHANGE OF BOWEL HABITS-DIARRHEA 07/25/2008 01/28/2021 Calculus of gallbladder with other cholecystitis, without mention of obstruction 10/18/2005 11/04/2019 documented as of this encounter (statuses as of 11/16/2021) [address]20-2009 History of Past illness Narrative* Problem Noted Date Resolved Date CHANGE OF BOWEL HABITS-DIARRHEA 07/25/2008 01/28/2021 Calculus of gallbladder with other cholecystitis, without mention of obstruction 10/18/2005 11/04/2019 documented as of this encounter (statuses as of 01/03/2022) [address]20-2009 History of Past illness Narrative* Problem Noted Date Resolved Date CHANGE OF BOWEL HABITS-DIARRHEA 07/25/2008 01/28/2021 Calculus of gallbladder with other cholecystitis, without mention of obstruction 10/18/2005 11/04/2019 documented as of this encounter (statuses as of 01/05/2022) [address]20-2009 History of Past illness Narrative* Problem Noted Date Resolved Date CHANGE OF BOWEL HABITS-DIARRHEA 07/25/2008 01/28/2021 Calculus of gallbladder with other cholecystitis, without mention of obstruction 10/18/2005 11/04/2019 documented as of this encounter (statuses as of 03/18/2022) [address]20-2009 History of Past illness Narrative* Problem Noted Date Resolved Date CHANGE OF BOWEL HABITS-DIARRHEA 07/25/2008 01/28/2021 Calculus of gallbladder with other cholecystitis, without mention of obstruction 10/18/2005 11/04/2019 documented as of this encounter (statuses as of 03/19/2022) [address]20-2009 History of Past illness Narrative* Problem Noted Date Resolved Date CHANGE OF BOWEL HABITS-DIARRHEA 07/25/2008 01/28/2021 Calculus of gallbladder with other cholecystitis, without mention of obstruction 10/18/2005 11/04/2019 documented as of this encounter (statuses as of 04/05/2022) [address]20-2009 History of Past illness Narrative* Problem Noted Date Resolved Date CHANGE OF BOWEL HABITS-DIARRHEA 07/25/2008 01/28/2021 Calculus of gallbladder with other cholecystitis, without mention of obstruction 10/18/2005 11/04/2019 documented as of this encounter (statuses as of 08/05/2022) [address]20-2009 History of Past illness Narrative* Problem Noted Date Resolved Date CHANGE OF BOWEL HABITS-DIARRHEA 07/25/2008 01/28/2021 Calculus of gallbladder with other cholecystitis, without mention of obstruction 10/18/2005 11/04/2019 documented as of this encounter (statuses as of 08/19/2022) [address]20-2009 History of Past illness Narrative* Problem Noted Date Resolved Date CHANGE OF BOWEL HABITS-DIARRHEA 07/25/2008 01/28/2021 Calculus of gallbladder with other cholecystitis, without mention of obstruction 10/18/2005 11/04/2019 documented as of this encounter (statuses as of 10/11/2022) [address]20-2009 History of Past illness Narrative* Problem Noted Date Diagnosed Date Resolved Date CHANGE OF BOWEL HABITS-DIARRHEA 07/25/2008 01/28/2021 Calculus of gallbladder with other cholecystitis, without mention of obstruction 10/18/2005 11/04/2019 documented as of this encounter (statuses as of 01/06/2023) [address]20-2009 History of Past illness Narrative* Problem Noted Date Diagnosed Date Resolved Date CHANGE OF BOWEL HABITS-DIARRHEA 07/25/2008 01/28/2021 Calculus of gallbladder with other cholecystitis, without mention of obstruction 10/18/2005 11/04/2019 documented as of this encounter (statuses as of 02/25/2023) [address]20-2009 History of Past illness Narrative* Problem Noted Date Diagnosed Date Resolved Date CHANGE OF BOWEL HABITS-DIARRHEA 07/25/2008 01/28/2021 Calculus of gallbladder with other cholecystitis, without mention of obstruction 10/18/2005 11/04/2019 documented as of this encounter (statuses as of 04/08/2023) [address]20-2009 History of Past illness Narrative* Problem Noted Date Diagnosed Date Resolved Date CHANGE OF BOWEL HABITS-DIARRHEA 07/25/2008 01/28/2021 Calculus of gallbladder with other cholecystitis, without mention of obstruction 10/18/2005 11/04/2019 documented as of this encounter (statuses as of 08/02/2023) [facility] illness Narrative* Problem Noted Date Diagnosed Date Resolved Date CHANGE OF BOWEL HABITS-DIARRHEA 07/25/2008 01/28/2021 Calculus of gallbladder with other cholecystitis, without mention of obstruction 10/18/2005 11/04/2019 documented as of this encounter (statuses as of 08/14/2023) [facility] History of Past illness Narrative* Problem Noted Date Diagnosed Date Resolved Date CHANGE OF BOWEL HABITS-DIARRHEA 07/25/2008 01/28/2021 Calculus of gallbladder with other cholecystitis, without mention of obstruction 10/18/2005 11/04/2019 documented as of this encounter (statuses as of 08/16/2023) [facility] History of Past illness Narrative* Problem Noted Date Diagnosed Date Resolved Date CHANGE OF BOWEL HABITS-DIARRHEA 07/25/2008 01/28/2021 Calculus of gallbladder with other cholecystitis, without mention of obstruction 10/18/2005 11/04/2019 documented as of this encounter (statuses as of 09/11/2023) [facility] Partial idiopathic epilepsy with seizures of localized onset, intractable, without status epilepticus (HCC)- [facility] Recurrent seizures (HCC)- Primary Other forms of epilepsy and recurrent seizures without mention of intractable epilepsy [facility] Partial idiopathic epilepsy with seizures of localized onset, intractable, without status epilepticus (HCC) [facility] Diagnosis Partial idiopathic epilepsy with seizures of localized onset, intractable, without status epilepticus (HCC) [facility] Diagnosis Partial idiopathic epilepsy with seizures of localized onset, intractable, without status epilepticus (HCC) [facility] Diagnosis Partial idiopathic epilepsy with seizures of localized onset, intractable, without status epilepticus (HCC)- Primary [facility] Diagnosis Partial idiopathic epilepsy with seizures of localized onset, intractable, without status epilepticus (HCC) [facility] Diagnosis Partial idiopathic epilepsy with seizures of localized onset, intractable, without status epilepticus (HCC) [facility] Partial idiopathic epilepsy with seizures of localized onset, intractable, without status epilepticus (HCC) [facility] Encounter for screening mammogram for breast cancer [facility] Diagnosis Partial idiopathic epilepsy with seizures of localized onset, intractable, without status epilepticus (HCC)- [facility] Encounter for screening mammogram for breast cancer [facility] Encounter for gynecological examination (general) (routine) without abnormal findings- Primary Encounter for screening mammogram for breast cancer [facility] noteNo assessment information availableWOhioHealth [facility] Work Phone: Evaluation note* Diagnosis Partial idiopathic epilepsy with seizures of localized onset, intractable, without status epilepticus (HCC)- Primary [facility] Diagnosis Partial idiopathic epilepsy with seizures of localized onset, intractable, without status epilepticus (HCC) [facility] Partial idiopathic epilepsy with seizures of localized onset, intractable, without status epilepticus (HCC)- Primary [facility] Diagnosis Encounter for gynecological examination (general) (routine) without abnormal findings- Primary Encounter for screening mammogram for breast cancer [facility] Diagnosis Partial idiopathic epilepsy with seizures of localized onset, intractable, without status epilepticus (HCC) [facility] Diagnosis Follow-up examination of abnormal mammogram Abnormal mammogram, unspecified [facility] Diagnosis Partial idiopathic epilepsy with seizures of localized onset, intractable, without status epilepticus (HCC) [facility] Diagnosis Partial idiopathic epilepsy with seizures of localized onset, intractable, without status epilepticus (HCC) [facility] Diagnosis Pre-operative examination- Primary Preoperative examination, unspecified Abnormal uterine bleeding (AUB) Partial idiopathic epilepsy with seizures of localized onset, intractable, without status epilepticus (HCC) Elevated blood pressure reading without diagnosis of hypertension 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, intractable, without status epilepticus (HCC) documented [facility] this encounter [facility]* Diagnosis Pre-operative examination- Primary Preoperative examination, unspecified Abnormal uterine bleeding (AUB) Partial idiopathic epilepsy with seizures of localized onset, intractable, without status epilepticus (HCC) Elevated blood pressure reading without diagnosis of hypertension 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, intractable, without status epilepticus (HCC) [facility] Diagnosis Pre-operative examination- Primary Preoperative examination, unspecified Abnormal uterine bleeding (AUB) Partial idiopathic epilepsy with seizures of localized onset, intractable, without status epilepticus (HCC) Elevated blood pressure reading without diagnosis of hypertension Iron deficiency anemia due to chronic blood loss Iron deficiency anemia secondary to blood loss (chronic) Encounter for gynecological examination (general) (routine) without abnormal findings- Primary Encounter for screening mammogram for breast cancer Screen for colon cancer Special screening for malignant neoplasms, colon [facility] Diagnosis Pre-operative examination- Primary Preoperative examination, unspecified Abnormal uterine bleeding (AUB) Partial idiopathic epilepsy with seizures of localized onset, intractable, without status epilepticus (HCC) Elevated blood pressure reading without diagnosis of hypertension Iron deficiency anemia due to chronic blood loss Iron deficiency anemia secondary to blood loss (chronic) Encounter for screening mammogram for breast cancer [facility] Diagnosis Pre-operative examination- Primary Preoperative examination, unspecified Abnormal uterine bleeding (AUB) Partial idiopathic epilepsy with seizures of localized onset, intractable, without status epilepticus (HCC) Elevated blood pressure reading without diagnosis of hypertension 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, intractable, without status epilepticus (HCC) [facility] Diagnosis Pre-operative examination- Primary Preoperative examination, unspecified Abnormal uterine bleeding (AUB) Partial idiopathic epilepsy with seizures of localized onset, intractable, without status epilepticus (HCC) Elevated blood pressure reading without diagnosis of hypertension 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, intractable, without status epilepticus (HCC) [facility] Diagnosis Pre-operative examination- Primary Preoperative examination, unspecified Abnormal uterine bleeding (AUB) Partial idiopathic epilepsy with seizures of localized onset, intractable, without status epilepticus (HCC) Elevated blood pressure reading without diagnosis of hypertension Iron deficiency anemia due to chronic blood loss Iron deficiency anemia secondary to blood loss (chronic) At high risk for breast cancer- Primary [facility]* Diagnosis Pre-operative examination- Primary Preoperative examination, unspecified Abnormal uterine bleeding (AUB) Partial idiopathic epilepsy with seizures of localized onset, intractable, without status epilepticus (HCC) Elevated blood pressure reading without diagnosis of hypertension 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, intractable, without status epilepticus (HCC)- Primary Encounter for monitoring anticonvulsant therapy Encounter for therapeutic drug monitoring [facility] Diagnostic Procedure Only (Routine) - Pending Review Specialty Diagnoses / Procedures Referred By Tina hurst Referred To Contact [facility] Diagnoses Encounter for screening mammogram for breast cancer Procedures JERMAINE SCREENING SCREENING MAMMOGRAPHY BI 2-VIEW BREAST INC Cari Styles PA-C [address] [place] [address] [facility] [address] [place] [address] Referral ID Status Reason Start Date Expiration Date Visits Requested Visits Authorized [id number] Pending Review Auto-Generat ed Referral 12/29/2021 01/28/2023 1 1 [facility] Diagnostic Procedure Only (Routine) - Closed Specialty Diagnoses / Procedures Referred By Tina hurst Referred To Contact [facility] Diagnoses Encounter for screening mammogram for breast cancer Procedures JERMAINE SCREENING SCREENING MAMMOGRAPHY BI 2-VIEW BREAST INC Cari Styles PA-C [address] [place] [address] [facility] [address] [place] [address] Referral ID Status Reason Start Date Expiration Date V isits Requested Visits Authorized [id number] Closed Auto-Generate d Referral 12/29/2021 01/28/2023 1 1 [facility] for referral (narrative)* Diagnostic Procedure Only (Routine) - Pending Review Specialty Diagnoses / Procedures Referred By Contac t Referred To Contact [facility] Diagnoses Encounter for screening mammogram for breast cancer Procedures JERMAINE SCREENING W STEFANIE SCREENING DIGITAL BREAST TOMOSYNTHESIS BI SCREENING MAMMOGRAPHY BI 2-VIEW BREAST INC CAD Neda Jerome MD [address] [place] [address] [facility] [address] [place] [address] Referral ID Status Reason Start Date Expiration Date Visits Requested Visits Authorized [id number] Pending Review Auto-Generat ed Referral 04/05/2022 05/05/2023 1 1 [facility] for referral (narrative)* Diagnostic Procedure Only (Routine) - Authorized Specialty Diagnoses / Procedures Referred By Contac t Referred To Contact [facility] Diagnoses Encounter for screening mammogram for breast cancer Procedures JERMAINE SCREENING W STEFANIE SCREENING DIGITAL BREAST TOMOSYNTHESIS BI SCREENING MAMMOGRAPHY BI 2-VIEW BREAST INC CAD Neda Jerome MD [address] [place] [address] [facility] [address] [place] [address] Referral ID Status Reason Start Date Expiration Date Visits Requested Visits Authorized [id number] Authorized Auto-Generat ed Referral 08/02/2023 08/31/2024 1 1 [facility] for referral (narrative)* Diagnostic Procedure Only (Routine) - Closed Specialty Diagnoses / Procedures Referred By Contac t Referred To Contact [facility] Diagnoses Follow-up examination of abnormal mammogram Procedures US BREAST LTD LEFT US BREAST UNI REAL TIME WITH IMAGE LIMITED Areli Wilcox APRN.CNP [address] [place] [address] [facility] [address] [place] [address] Referral ID Status Reason Start Date Expiration Date V isits Requested Visits Authorized [id number] Closed Auto-Generate d Referral 06/24/2023 04/22/2024 1 1 [facility] for visit Narrative* Diagnostic Procedure Only (Routine) - Closed Specialty Diagnoses / Procedures Referred By Tina hurst Referred To Contact [facility] Diagnoses Encounter for screening mammogram for breast cancer Procedures JERMAINE SCREENING SCREENING MAMMOGRAPHY BI 2-VIEW BREAST INC CAD Cari Zaldivar PA-C [address] [place] [address] [facility] [address] [place] [address] Referral ID Status Reason Start Date Expiration Date V isits Requested Visits Authorized [id number] Closed Auto-Generate d Referral 12/29/2021 01/28/2023 1 1 [facility] for visit Narrative* Diagnostic Procedure Only (Routine) - Closed Specialty Diagnoses / Procedures Referred By Tina hurst Referred To Contact [facility] Diagnoses Encounter for screening mammogram for breast cancer Procedures JERMAINE SCREENING W STEFANIE SCREENING DIGITAL BREAST TOMOSYNTHESIS BI SCREENING MAMMOGRAPHY BI 2-VIEW BREAST INC CAD Neda Jerome MD [address] [place] [address] Phone: tel: fax: [facility] [address] [place] [address] Referral ID Status Reason Start Date Expiration Date V isits Requested Visits Authorized [id number] Closed Auto-Generate d Referral 08/02/2023 08/31/2024 1 1 [facility] Summary Purpose Family History No Family History Records FoundNo Family History Records FoundNo Family History Records FoundNo Family History Records FoundNo Family History Records FoundNo Family History Records Found Advance Directives No Advanced Directives Records FoundDocuments on File Type Date Recorded Patient Inter Com Installer Expl anation Advance Directive(s) 11/07/2019 7:12 AM Advance Directive(s) 10/21/2019 2:47 PM Me dorothy Advance Directive(s) 03/28/2019 6:47 AM Advance Directive(s) 03/14/2019 4:28 PM Documents on File Type Date Recorded Patient Inter Com Installer Expl anation Advance Directive(s) 11/07/2019 7:12 AM Advance Directive(s) 10/21/2019 2:47 PM Me dorothy Advance Directive(s) 03/28/2019 6:47 AM Advance Directive(s) 03/14/2019 4:28 PM Procedure Findings Note HNO ID: [id number] Author: Rodney Ha Service: Gynecology Author Type: Physician Type: Operative Report Filed: 03/28/2019 8:13 AM Note Text: BRIEF OPERATIVE / PROCEDURE NOTE LOG ID: [id number] SURGERY/PROCEDURE DATE: 03/28/2019 INCISION/PROCEDURE START TIME: 7:49 AM INCISION CLOSE/PROCEDURE END TIME: 8:10 AM SURGEON(S)/PROCEDURALIST(S) AND BEAUTY SHOP MANAGER(S): Surgeon(s) and Role: * Neda Ha - Primary Registered Nurse Grocery Store Associate: Shelley (Rn) TANYA Lakhani SURGERY/PROCEDURE(S): Hysteroscopy, DANDC ANESTHESIA: General FINDINGS: Thickened endometrial tissue, possible polypoid tissue ESTIMATED BLOOD LOSS: 5 mls SPECIMENS: endometrial curettings COMPLICATIONS: None PRE-OP/PRE-PROCEDURE DIAGNOSIS: AUB, endometrial polyp, fibroid uterus, adenomyosis POST-OP/POST-PROCEDURE DIAGNOSIS: Abnormal uterine bleeding; Endometrial polyp; Adenomyosis; Uterine fibroid SIGNATURE: Neda José MD PATIENT NAME: Elmo Montoya DATE: March 28, 2019 TIME: 8:11 (more content not included)... Reason for Referral Specialty Diagnoses / Procedures Referred By Tina hurst Referred To Contact Diagnoses Partial idiopathic epilepsy with seizures of localized onset, intractable, without status epilepticus (HCC) Neur Epilepsy [address] [place] [address] Referral ID Status Reason Start Date Expiration Date V isits Requested Visits Authorized [id number] Pending Review 1 1 Additional Source Comments INFORMATION SOURCE (unrecogn ized section and content) DATE CREATED AUTHOR 11/24/2017 [facility] DATE CREATED AUTHOR AUTHOR'S ORGANIZ ATION 05/04/2019 [facility] DATE CREATED AUTHOR AUTHOR'S ORGANIZ ATION 11/18/2019 [facility] DATE CREATED AUTHOR AUTHOR'S ORGANIZ ATION 05/14/2022 [facility] DATE CREATED AUTHOR AUTHOR'S ORGANIZ ATION 11/04/2023 [facility] DATE CREATED AUTHOR AUTHOR'S ORGANIZ ATION 11/03/2024 [facility] Source Comments (unrecognize d section and content) In the event this informatio n is protected by the Federal Confidentiality of Alcohol and Drug Abuse Patient Records regulations: The Federal rules restrict any use of the information to criminally investigate or prosecute any alcohol or drug abuse patient.[facility] the event this information is protected by the Federal Confidentiality of Alcohol and Drug Abuse Patient Records regulations: The Federal rules restrict any use of the information to criminally investigate or prosecute any alcohol or drug abuse patient.[facility] the event this information is protected by the Federal Confidentiality of Alcohol and Drug Abuse Patient Records regulations: The Federal rules restrict any use of the information to criminally investigate or prosecute any alcohol or drug abuse patient.[facility] the event this information is protected by the Federal Confidentiality of Alcohol and Drug Abuse Patient Records regulations: The Federal rules restrict any use of the information to criminally investigate or prosecute any alcohol or drug abuse patient.[facility] the event this information is protected by the Federal Confidentiality of Alcohol and Drug Abuse Patient Records regulations: The Federal rules restrict any use of the information to criminally investigate or prosecute any alcohol or drug abuse patient.[facility] the event this information is protected by the Federal Confidentiality of Alcohol and Drug Abuse Patient Records regulations: The Federal rules restrict any use of the information to criminally investigate or prosecute any alcohol or drug abuse patient.[facility] the event this information is protected by the Federal Confidentiality of Alcohol and Drug Abuse Patient Records regulations: The Federal rules restrict any use of the information to criminally investigate or prosecute any alcohol or drug abuse patient.[facility] the event this information is protected by the Federal Confidentiality of Alcohol and Drug Abuse Patient Records regulations: The Federal rules restrict any use of the information to criminally investigate or prosecute any alcohol or drug abuse patient.[facility] the event this information is protected by the Federal Confidentiality of Alcohol and Drug Abuse Patient Records regulations: The Federal rules restrict any use of the information to criminally investigate or prosecute any alcohol or drug abuse patient.[facility] the event this information is protected by the Federal Confidentiality of Alcohol and Drug Abuse Patient Records regulations: The Federal rules restrict any use of the information to criminally investigate or prosecute any alcohol or drug abuse patient.[facility] the event this information is protected by the Federal Confidentiality of Alcohol and Drug Abuse Patient Records regulations: The Federal rules restrict any use of the information to criminally investigate or prosecute any alcohol or drug abuse patient.[facility] the event this information is protected by the Federal Confidentiality of Alcohol and Drug Abuse Patient Records regulations: The Federal rules restrict any use of the information to criminally investigate or prosecute any alcohol or drug abuse patient.[facility] the event this information is protected by the Federal Confidentiality of Alcohol and Drug Abuse Patient Records regulations: The Federal rules restrict any use of the information to criminally investigate or prosecute any alcohol or drug abuse patient.[facility] the event this information is protected by the Federal Confidentiality of Alcohol and Drug Abuse Patient Records regulations: The Federal rules restrict any use of the information to criminally investigate or prosecute any alcohol or drug abuse patient.[facility] the event this information is protected by the Federal Confidentiality of Alcohol and Drug Abuse Patient Records regulations: The Federal rules restrict any use of the information to criminally investigate or prosecute any alcohol or drug abuse patient.[facility] the event this information is protected by the Federal Confidentiality of Alcohol and Drug Abuse Patient Records regulations: The Federal rules restrict any use of the information to criminally investigate or prosecute any alcohol or drug abuse patient.[facility] the event this information is protected by the Federal Confidentiality of Alcohol and Drug Abuse Patient Records regulations: The Federal rules restrict any use of the information to criminally investigate or prosecute any alcohol or drug abuse patient.[facility] the event this information is protected by the Federal Confidentiality of Alcohol and Drug Abuse Patient Records regulations: The Federal rules restrict any use of the information to criminally investigate or prosecute any alcohol or drug abuse patient.[facility] the event this information is protected by the Federal Confidentiality of Alcohol and Drug Abuse Patient Records regulations: The Federal rules restrict any use of the information to criminally investigate or prosecute any alcohol or drug abuse patient.[facility] the event this information is protected by the Federal Confidentiality of Alcohol and Drug Abuse Patient Records regulations: The Federal rules restrict any use of the information to criminally investigate or prosecute any alcohol or drug abuse patient.[facility] the event this information is protected by the Federal Confidentiality of Alcohol and Drug Abuse Patient Records regulations: The Federal rules restrict any use of the information to criminally investigate or prosecute any alcohol or drug abuse patient.[facility] the event this information is protected by the Federal Confidentiality of Alcohol and Drug Abuse Patient Records regulations: The Federal rules restrict any use of the information to criminally investigate or prosecute any alcohol or drug abuse patient.[facility] the event this information is protected by the Federal Confidentiality of Alcohol and Drug Abuse Patient Records regulations: The Federal rules restrict any use of the information to criminally investigate or prosecute any alcohol or drug abuse patient.[facility] the event this information is protected by the Federal Confidentiality of Alcohol and Drug Abuse Patient Records regulations: The Federal rules restrict any use of the information to criminally investigate or prosecute any alcohol or drug abuse patient.[facility] the event this information is protected by the Federal Confidentiality of Alcohol and Drug Abuse Patient Records regulations: The Federal rules restrict any use of the information to criminally investigate or prosecute any alcohol or drug abuse patient.[facility] the event this information is protected by the Federal Confidentiality of Alcohol and Drug Abuse Patient Records regulations: The Federal rules restrict any use of the information to criminally investigate or prosecute any alcohol or drug abuse patient.[facility] the event this information is protected by the Federal Confidentiality of Alcohol and Drug Abuse Patient Records regulations: The Federal rules restrict any use of the information to criminally investigate or prosecute any alcohol or drug abuse patient.[facility] the event this information is protected by the Federal Confidentiality of Alcohol and Drug Abuse Patient Records regulations: The Federal rules restrict any use of the information to criminally investigate or prosecute any alcohol or drug abuse patient.[facility] the event this information is protected by the Federal Confidentiality of Alcohol and Drug Abuse Patient Records regulations: The Federal rules restrict any use of the information to criminally investigate or prosecute any alcohol or drug abuse patient.[facility] the event this information is protected by the Federal Confidentiality of Alcohol and Drug Abuse Patient Records regulations: The Federal rules restrict any use of the information to criminally investigate or prosecute any alcohol or drug abuse patient.[facility] the event this information is protected by the Federal Confidentiality of Alcohol and Drug Abuse Patient Records regulations: The Federal rules restrict any use of the information to criminally investigate or prosecute any alcohol or drug abuse patient.[facility] the event this information is protected by the Federal Confidentiality of Alcohol and Drug Abuse Patient Records regulations: The Federal rules restrict any use of the information to criminally investigate or prosecute any alcohol or drug abuse patient.[facility]In the event this information is protected by the Federal Confidentiality of Alcohol and Drug Abuse Patient Records regulations: The Federal rules restrict any use of the information to criminally investigate or prosecute any alcohol or drug abuse patient.[facility]In the event this information is protected by the Federal Confidentiality of Alcohol and Drug Abuse Patient Records regulations: The Federal rules restrict any use of the information to criminally investigate or prosecute any alcohol or drug abuse patient.[facility]In the event this information is protected by the Federal Confidentiality of Alcohol and Drug Abuse Patient Records regulations: The Federal rules restrict any use of the information to criminally investigate or prosecute any alcohol or drug abuse patient.[facility]In the event this information is protected by the Federal Confidentiality of Alcohol and Drug Abuse Patient Records regulations: The Federal rules restrict any use of the information to criminally investigate or prosecute any alcohol or drug abuse patient.[facility]In the event this information is protected by the Federal Confidentiality of Alcohol and Drug Abuse Patient Records regulations: The Federal rules restrict any use of the information to criminally investigate or prosecute any alcohol or drug abuse patient.[facility]In the event this information is protected by the Federal Confidentiality of Alcohol and Drug Abuse Patient Records regulations: The Federal rules restrict any use of the information to criminally investigate or prosecute any alcohol or drug abuse patient.[facility]In the event this information is protected by the Federal Confidentiality of Alcohol and Drug Abuse Patient Records regulations: The Federal rules restrict any use of the information to criminally investigate or prosecute any alcohol or drug abuse patient.[facility]In the event this information is protected by the Federal Confidentiality of Alcohol and Drug Abuse Patient Records regulations: The Federal rules restrict any use of the information to criminally investigate or prosecute any alcohol or drug abuse patient.[facility]In the event this information is protected by the Federal Confidentiality of Alcohol and Drug Abuse Patient Records regulations: The Federal rules restrict any use of the information to criminally investigate or prosecute any alcohol or drug abuse patient.[facility]In the event this information is protected by the Federal Confidentiality of Alcohol and Drug Abuse Patient Records regulations: The Federal rules restrict any use of the information to criminally investigate or prosecute any alcohol or drug abuse patient.[facility] Reason for Visit (unrecogniz ed section and content) Reason Comments Follow Up Epilepsy Specialty Diagnoses / Procedures Referred By Tina hurst Referred To Contact ADULT NEUROLOGY Diagnoses epilepsy Procedures OFFICE VISIT, EST PT., LEVEL 2 [place] [address] [place] [address] Neur Adult [address]vw [address] [place] [address] Referral ID Status Reason Start Date Expiration Date Visits Requested Visits Authorized [id number] Pending Review OON/Self Pay Override 07/12/2022 07/12/2023 4 4 Reason Comments Orders Liver Test Reason Comments Medication concern new medication Reason Onset Date Comments Seizures 09/06/2021 Reason Comments Seizures Reason Onset Date Comments Refill Request 09/27/2021 Reason Comments Patient Question Reason Comments Pharmacist calling w/question re: Medica tion Reason Comments Well Woman Reason Onset Date Comments Refill Request 08/18/2022 Reason Comments Breast Problem Noticed lump in the left breast today Reason Comments Radiology US Specialty Diagnoses / Procedures Referred By Tina hurst Referred To Contact [facility] Diagnoses Breast lump on left side at 1 o'clock position Procedures US BREAST LTD LEFT US BREAST UNI REAL TIME WITH IMAGE LIMITED Areli Wilcox APRN.LOGISTICS MANAGEMENT SPECIALIST [address] [place] [address] [facility] [address] [place] [address] Referral ID Status Reason Start Date Expiration Date V isits Requested Visits Authorized [id number] Closed Auto-Generate d Referral 03/22/2023 06/04/2023 1 1 Reason Comments Yearly Exam Reason Onset Date Comments Refill Request 08/13/2023 Specialty Diagnoses / Procedures Referred By Tina t Referred To Contact [facility] Diagnoses Follow-up examination of abnormal mammogram Procedures US BREAST LTD LEFT US BREAST UNI REAL TIME WITH IMAGE LIMITED Areli Wilcox APRN.LOGISTICS MANAGEMENT SPECIALIST [address] [place] [address] [facility] [address] [place] [address] Referral ID Status Reason Start Date Expiration Date V isits Requested Visits Authorized [id number] Closed Auto-Generate d Referral 06/24/2023 04/22/2024 1 1 Reason Onset Date Comments Refill Request 09/09/2023 Reason Comments Medication Authorization Reason Onset Date Comments Refill Request 03/09/2024 Reason Onset Date Comments Refill Request 05/18/2024 Reason Onset Date Comments Refill Request 05/20/2024 Reason Comments Yearly Exam Reason Onset Date Comments Refill Request 09/01/2024 Reason Comments Medication concern Seizure medications Care Teams (unrecognized sec tion and content) Robotics Specialist Relationship Specialty Start Date End Date Cari Zaldivar PA-C [address] [place] [address] PCP - General Family Practice 11/06/18 Robotics Specialist Relationship Specialty Start Date End Date Cari Zaldivar PA-C [address] [place] [address] PCP - General Family Practice 11/06/18 Robotics Specialist Relationship Specialty Start Date End Date Cari Zaldivar PA-C [address] [place] [address] PCP - General Family Practice 11/06/18 Robotics Specialist Relationship Specialty Start Date End Date Cari Zaldivar PA-C [address] [place] [address] PCP - General Family Practice 11/06/18 Robotics Specialist Relationship Specialty Start Date End Date Cari Zaldivar PA-C [address] [place] [address] PCP - General Family Practice 11/06/18 Robotics Specialist Relationship Specialty Start Date End Date Cari Zaldivar PA-C [address] [place] [address] PCP - General Family Practice 11/06/18 Robotics Specialist Relationship Specialty Start Date End Date Cari Zaldivar PA-C [address] [place] [address] PCP - General Family Practice 11/06/18 Robotics Specialist Relationship Specialty Start Date End Date Cari Zaldivar PA-C [address] [place] [address] PCP - General Family Practice 11/06/18 Robotics Specialist Relationship Specialty Start Date End Date Cari Zaldivar PA-C [address] [place] [address] PCP - General Family Practice 11/06/18 Robotics Specialist Relationship Specialty Start Date End Date Cari Zaldivar PA-C [address] [place] [address] PCP - General Family Practice 11/06/18 Robotics Specialist Relationship Specialty Start Date End Date Cari Zaldivar PA-C [address] [place] [address] PCP - General Family Practice 11/06/18 Robotics Specialist Relationship Specialty Start Date End Date Cari Zaldivar PA-C [address] [place] [address] PCP - General Family Practice 11/06/18 Robotics Specialist Relationship Specialty Start Date End Date Cari Zaldivar PA-C [address] [place] [address] PCP - General Family Practice 11/06/18 Robotics Specialist Relationship Specialty Start Date End Date Cari Zaldivar PA-C [address] [place] [address] PCP - General Family Medicine 11/06/18 Robotics Specialist Relationship Specialty Start Date End Date Cari Zaldivar PA-C [address] [place] [address] PCP - General Family Medicine 11/06/18 Robotics Specialist Relationship Specialty Start Date End Date Cari Zaldivar PA-C [address] [place] [address] PCP - General Family Medicine 11/06/18 Robotics Specialist Relationship Specialty Start Date End Date Cari Zaldivar PA-C [address] [place] [address] PCP - General Family Medicine 11/06/18 Robotics Specialist Relationship Specialty Start Date End Date Cari Zaldivar PA-C [address] [place] [address] PCP - General Family Medicine 11/06/18 Robotics Specialist Relationship Specialty Start Date End Date Cari Zaldivar PA-C [address] [place] [address] PCP - General Family Medicine 11/06/18 Robotics Specialist Relationship Specialty Start Date End Date Cari Zaldivar PA-C [address] [place] [address] PCP - General Family Medicine 11/06/18 Robotics Specialist Relationship Specialty Start Date End Date Cari Zaldivar PA-C [address] [place] [address] PCP - General Family Medicine 11/06/18 Robotics Specialist Relationship Specialty Start Date End Date Cari Zaldivar PA-C [address] [place], [place] [address] PCP - General Family Medicine 11/06/18 Robotics Specialist Relationship Specialty Start Date End Date Cari Zaldivar PA-C [address] [place], [place] [address] PCP - General Family Medicine 11/06/18 Robotics Specialist Relationship Specialty Start Date End Date Cari Zaldivar PA-C [address] [place], [place] [address] PCP - General Family Medicine 11/06/18 Goals (unrecognized section and content) Goals may be documented in a n alternate sectionGoals may be documented in an alternate section FOR RECORDS PERTAINING TO PATIENTS WHO ARE OR HAVE BEEN ENROLLED IN A CHEMICAL DEPENDENCY/SUBSTANCEABUSE PROGRAM, SOME INFORMATION MAY BE OMITTED. This clinical summary was aggregated from multiple sources. Caution should be exercised in using it in the provision of clinical care. This summary normalizes information from multiple sources, and as a consequence, information in this document may materially change the coding, format and clinical context of patient data. In addition, data may be omitted in some cases. CLINICAL DECISIONS SHOULD BE BASED ON THE PRIMARY CLINICAL RECORDS. [facility] [employer] [facility]. provides no warranty or guarantee of the accuracy or completeness of information in this document.
--- NOTE | 2024-11-10 12:04 | EDS_ITS ---
HPI History of Present Illness Chief Complaint: Dizziness Detail of Chief Complaint: Dizziness Informant: patient Narrative Narrative: Patient presents to the ER with complaint of dizziness that started suddenly prior to arrival in the emergency department. Patient says she had stood up and was standing or talking to her when she got sudden onset of spinning sensation and nausea. She is never had episode like this before. She denies headache. She denies falls. Denies recent illness. She does have history of seizures. Patient vomited once on arrival to the emergency department. She denies chest pain or shortness of breath. She denies urinary symptoms. PFSH PFSH Home Medications ?Medication ?Instructions ?Recorded ?Last Taken ?Type lacosamide 200 mg tablet 200 mg PO BID 02/16/2011/10 History meclizine 25 mg tablet 25 mg PO TID PRN dizziness # 14 tabs 11/10/24 Unknown Rx ondansetron 4 mg disintegrating 4 mg PO Q8H PRN PRN Na usea #10 tabs 11/10/24 Unknown Rx tablet zonisamide 100 mg capsule mg PO 11/10/24 11/10/24 Hist ory Allergy/AdvReac Type Severity Reaction Status Date / Time lamotrigine (From Lamictal) Allergy Angioedema Verified 11/10/24 11:46 Social History Smoking Status: Never smoker ROS ROS ED Review of Systems ROS Unobtainable: other Constitutional Constitutional ED: Reports lethargy; Denies chills, fever(s), sweats or weight loss Eyes Eyes: Denies blurry vision, change in vision or diplopia ENT ENT ED: Denies rhinorrhea or sore throat Cardiovascular Cardiovascular: Denies chest pain, orthopnea or racing heartbeat Respiratory/Chest Respiratory/Chest: Reports dyspnea on exertion; Denies cough, dyspnea, orthopnea or sputum Gastrointestinal Gastrointestinal: Reports nausea and vomiting; Denies abdominal pain or diarrhea Genitourinary Genitourinary ED: Denies dysuria, hematuria or urinary frequency Musculoskeletal Musculoskeletal: Denies arthralgias, back pain, myalgias or neck pain Integumentary Denies abscess, Abrasions or rash Neurologic Neurologic: Reports other Details: Dizziness ; Denies headache(s) or weakness Psychiatric Psychiatric: Denies anxiety, depression or suicidal thoughts Endocrine Endocrinology: Denies polydipsia, polyphagia or polyuria Hematologic/Lymphatic Hematologic/Lymphatic: Denies easy bleeding, easy bruising or lymphadenopathy Allergic/Immunologic Allergic/Immunologic ED: Denies mouth swelling, tongue swelling or urticaria EXAM Physical Exam Const Vital Signs: 11/10/24 11:20 11/10/24 12:22 Temperature 96.5 F L Temperature Source Temporal Pulse Rate 95 Pulse Rate [Lying] 77 Pulse Rate [Sitting (for 1 minute prior to obtaining)] 80 Respiratory Rate 16 Blood Pressure 199/128 H Blood Pressure [Lying] 131/88 H Blood Pressure [Sitting (for 1 minute prior to obtaining)] 147/112 H Blood Pressure Mean 151 Blood Pressure Mean [Lying] 102 Blood Pressure Mean [Sitting (for 1 minute prior to obtaining)] 123 Pulse Ox 99 Oxygen Delivery Method Room Air Positive well nourished and well developed General Appearance ED: well developed and NAD HEENT Reports TM's clear and moist mucous membranes normocephalic and atraumatic; Negative for trauma or tenderness Tympanic Membrane ED: Yes TM's clear Eyes PERRL and EOMs intact bilaterally General Eye ED: Negative for pale conjunctiva or scleral icterus Neck no lymphadenopathy, supple and no JVD General: Negative for tenderness Chest Wall inspection of chest normal and palpation of chest normal Chest: Negative for tenderness Resp normal respiratory effort and clear to auscultation bilaterally Effort and Inspection: Negative for respiratory distress or pain with movement Auscultation: Negative for rhonchi, wheezes or diminished lung sounds Cardio regular rate, regular rhythm, S1 normal heart sound, S2 normal heart sound and no murmurs Peripheral Pulses: pulses 2+ throughout GI normal to inspection, nondistended, normoactive bowel sounds, soft to palpation, non-tender, non-distended and no masses Back/Spine no CVA tenderness and no thoracic nor lumbar tenderness Extremity normal to inspection General Extremety ED: Negative for edema General Extremity: Negative for edema Neuro oriented x3, CN's II-XII intact bilaterally, no sensory deficits noted and gait normal Neuro Narrative: Hallpike maneuver performed noted to have mild nystagmus with head turn to the right that was fatigable. Sensorium / Orientation: awake, alert, oriented to person, oriented to place and oriented to time Motor Exam: strength 5/5 throughout and strength abnormal Psych mental status grossly normal Skin no rashes or lesions noted and no wounds MDM MDM MDM Narrative Medical decision making narrative: Patient presents with sudden onset of dizziness. On exam noted to have some nystagmus with head turn to the right. Suspect likely benign positional vertigo. She does not have a headache and has had no trauma or injury. IV line established. She was given Zofran 4 mg IV. She was given Antivert 25 mg p.o. She received a liter normal saline fluid bolus. Orthostatic vital signs were negative. CBC with differential showed white count of 10.2 with hemoglobin 13 and platelet count 295. Chemistries unremarkable. After treatment she did feel improved. She had no further complaint of vertigo. She will be ambulated and as long as she can ambulate she will be discharged to home with a prescription for Antivert. Advised to follow-up with ENT. Lab Data Attestation: I reviewed the patient's lab results. Labs: Laboratory Results - last 24 hr 11/10/24 12:06 WBC 10.2 RBC 4.49 Hgb 13.1 Hct 38.8 MCV 86.4 MCH 29.2 MCHC 33.8 RDW Std Deviation 41.6 RDW Coeff of Waqas 13.4 Plt Count 295 MPV 9.1 Immature Gran % (Auto) 0.400 Neut % (Auto) 67.1 Lymph % (Auto) 23.4 [place] % (Auto) 5.6 Eos % (Auto) 3.0 Baso % (Auto) 0.5 Absolute Neuts (auto) 6.8 Absolute Lymphs (auto) 2.38 Nucleated RBC % 0 Sodium 138 Potassium 3.4 Chloride 106 Carbon Dioxide 19.2 L Anion Gap 13 BUN 13 Creatinine 0.72 Estim Creat Clear Calc 118.00 Est GFR (MDRD) Non-Af 104 BUN/Creatinine Ratio 17.3 Glucose 173 H Calcium 8.8 Discharge Plan Triage Chief Complaint: Dizziness ED Provider: Nneak Ibarra Dx/Rx/DC Orders Clinical Impression: Benign positional vertigo Instructions: ED BPV Vertigo Prescriptions: New ondansetron 4 mg tablet,disintegrating 4 mg PO Q8H PRN PRN (Reason: Nausea) Qty: 10 0RF meclizine 25 mg tablet 25 mg PO TID PRN (Reason: dizziness) Qty: 14 0RF No Action lacosamide 200 mg tablet 200 mg PO BID Patient Comments: TAKE 1 TABLET BY MOUTH TWICE DAILY FOR 180 DAYS. zonisamide 100 mg capsule PO Primary Care Provider: Care Physician,Rosy Primary Referrals: Jacob Hay MD [Med Staff - Active Staff] - 3-5 Days Care Physician,No Primary [Primary Care Provider] - Print Language: Upper Sorbian Disposition Disposition: Home, Self Care
[2024-11-10 12:11] LABS: Absolute Lymphocyte Count 2.38 X10^3/uL (0.83-4.51); Absolute Neutrophil Count 6.8 X10^3/uL (2.0-7.7); Basophil# 0.05 X10^3/uL; Basophil% 0.5 % (0-1); Eosinophil# 0.31 X10^3/uL; Hematocrit 38.8 % (37-47); Hemoglobin 13.1 g/dL (12.0-15.0); Lymphocyte # 2.38 X10^3/ul (0.83-4.51); Lymphocyte % 23.4 % (19-41); Mean Corp Hgb Conc 33.8 g/dL (32-36); Mean Corpuscular Hgb 29.2 pg (27.0-32.0); Mean Corpuscular Volume 86.4 fL (81-99); Mean Platelet Vol. 9.1 fl (6.2-12.0); Monocyte# 0.57 X10^3/uL; Monocyte% 5.6 % (0-10); NRBC Flagged by Analyzer 0 % (0-5); Neutrophil # 6.82 X10^3/uL (2.7-7.7); Neutrophil % 67.1 % (47-70); Platelet Count 295 K/mm3 (150-450); RBC Distribution Width CV 13.4 % (11.6-14.6); RBC Distribution Width SD 41.6 fl (35.1-43.9); Red Blood Count 4.49 M/mm3 (4.2-5.4); White Blood Count 10.2 K/mm3 (4.4-11.0)
[2024-11-10] MEDS: 0.9% Normal Saline (1000mL) 1,000 ML 1000 ML IV (12:20)
[2024-11-10] MEDS: Ondansetron 4 MG/2 ML Vial IM (12:20)
[2024-11-10 12:22] VITALS: BP 131/88; BP 147/112; PULSE 77; PULSE 80
[2024-11-10] MEDS: Meclizine HCl 25 MG Tablet PO (12:26)
[2024-11-10 12:47] LABS: Anion Gap 13 (5-15); BUN 13 mg/dL (4-19); BUN/Creat Ratio 17.3 RATIO (10-20); Calcium,Total 8.8 mg/dL (7.6-11.0); Carbon Dioxide 19.2 mmol/L (21.0-32.0); Chloride 106 mmol/L (98-108); Creatinine, Serum 0.72 mg/dL (0.70-1.20); EST Glomerular Filtration Rate 104 (>60); Glucose 173 mg/dL (70-99); Potassium 3.4 mmol/L (3.3-5.1); Sodium Level 138 mmol/L (133-145)
[2024-11-10 13:52] VITALS: BP 139/90; PULSE 89; RESP 16; O2SAT 99
== END 2024-11-10 13:54 | disposition home or self-care (01) ==
PROVIDERS: Emergency Provider Emergency Medicine; Visit Provider Emergency Medicine
DX: H81.10 Benign paroxysmal vertigo, unspecified ear (principal); R11.2 Nausea with vomiting, unspecified
CPT/HCPCS: 80048; 85025; 96360; 96372; 99284; A4216; J2405